=== PATIENT | female | born 1955 | race Caucasian/White ===

== ENCOUNTER → 2022-12-12 11:46 | Outpatient (REF) | payer MEDICARE, OTHER, SELFPAY ==
--- NOTE | 2022-12-12 13:18 | ECG_ITS ---
Test Reason : I10 Blood Pressure : / mmHG Vent. Rate : 084 BPM Atrial Rate : 084 BPM P-R Int : 148 ms QRS Dur : 076 ms QT Int : 382 ms P-R-T Axes : 071 065 064 degrees QTc Int : 451 ms Normal sinus rhythm Possible Left atrial enlargement Borderline ECG When compared with ECG of 04-DEC-2002 17:33, No significant change was found Referred By: Mainor Raymond Electronically Signed By:JOSEPH MAYFIELD
[2022-12-12 14:20] LABS: Basophils Absolute Auto 0.1 X10*3/uL (0.0-0.2); Basophils Percent Auto 0.7 % (0-2); Eosinophils Absolute Auto 0.1 X10*3/uL (0.0-0.4); Eosinophils Percent Auto 0.5 % (0-4); Hemoglobin 13.9 g/dl (12.0-16.0); Imm Gran Abs Auto 0.04 X10*3/uL (0.00-0.03); Imm Gran Pct Auto 0.4 % (0.0-0.4); Lymphocytes Absolute Auto 2.6 X10*3/uL (1.2-4.9); Lymphocytes Percent Auto 24.1 % (20-40); MANUAL DIFF FLAG NO; Mean Corpuscular HGB Conc 33.9 g/dl (31.0-35.0); Mean Corpuscular Hemoglobin 29.4 pg (27.0-33.0); Mean Corpuscular Volume 86.7 fL (80.0-98.0); Mean Platelet Volume 9.2 fL (9.4-12.3); Monocytes Absolute Auto 0.8 X10*3/uL (0.1-1.2); Monocytes Percent Auto 7.6 % (2-11); Neutrophils Absolute Auto 7.1 x10*3/uL (2.0-8.3); Neutrophils Percent Auto 66.7 % (45-73); Platelet Count 396 X10*3/uL (160-400); Red Blood Count 4.73 X10*6/uL (4.20-5.50); Red Cell Distribution Width 12.9 % (11.0-16.0); White Blood Count 10.7 X10*3/uL (4.8-10.8)
[2022-12-12 14:33] LABS: Estimated Average Glucose 103 mg/dL; Hemoglobin A1C 127.8484 umol/L; Hemoglobin A1c % 5.2 %
[2022-12-12 15:06] LABS: Alanine Aminotransferase 13 U/L (0-31); Albumin Level 4.6 g/dL (3.5-5.0); Alkaline Phosphatase 83 U/L (39-117); Anion Gap 16 (12-20); Aspartate Amino Transferase 13 U/L (5-31); Bilirubin Total 0.4 mg/dL (0.0-1.0); Blood Urea Nitrogen 12 mg/dL (9-16); Calcium 9.6 mg/dL (8.4-10.2); Carbon Dioxide 22 mmol/L (22-29); Chloride 100 mmol/L (96-108); Estimated Glomerular Filt Rate > 60; Glucose Random 94 mg/dL (60-115); Potassium 4.9 mmol/L (3.3-5.1); Sodium 133 mmol/L (135-145); Total Protein 6.7 g/dL (6.5-8.0)
[2022-12-12 15:31] LABS: Vitamin B12 1258 pg/mL (200-900)
[2022-12-12 16:04] LABS: Folate 17.4 ng/mL (> or = 4.0)
== END ==
LOC: HO.CARD 11:46
PROVIDERS: PCP Family Medicine; Visit Provider Psychiatry & Neurology Psychiatry
DX: F31.4 Bipolar disorder, current episode depressed, severe, without psychotic features (principal); I10 Essential (primary) hypertension; R73.9 Hyperglycemia, unspecified; Z79.899 Other long term (current) drug therapy
CPT/HCPCS: 36415; 80053; 82607; 82746; 83036; 84443; 85025; 90792; 93005

== ENCOUNTER 2023-11-12 12:50 | Outpatient (AMB) | payer MEDICARE, OTHER, SELFPAY ==
--- NOTE | 2023-11-12 15:31 | A.OFFPSYCH_ITS ---
Intake Vital Signs 11/12/23 15:32 Height 5 ft 8 in Weight 135 lb Intake Visit Reasons: Depression Landing Scaler Required: No Allergies No Known Allergies Allergy (Verified 11/12/23 15:33) Medication List - Last Reconciled 11/12/23 by Vira Ruiz APRN albuterol sulfate 90 mcg/actuation 2 puffs inhalation Q4-6H PRN alprazolam 0.5 - 1 mg PO BID PRN celecoxib 200 mg PO DAILY estradiol 0.01%(0.1mg/gram) 0.5 grams vaginal 2XW famotidine 20 mg PO BEDTIME lamotrigine orally; Patient takes 150 mg in the morning 100 mg at bedtime lisinopril 10 mg PO DAILY lurasidone (Latuda) 40 mg PO DAILY mirtazapine 30 mg PO BEDTIME temazepam 30 mg PO BEDTIME trazodone 100 - 150 mg PO BEDTIME PRN trimethoprim 100 mg PO BEDTIME HPI- Psychiatric Chief Complaint: Depression Intake Note: pt reports improved mood; increased energy; feeling less overwhelmed; feeling less anxious about taks and activities; stress new her daughter's father in law with terminal cancer (lives with family) - very hard on whole family. Pt denies SI or HI; sleeping only 4-5 hours ; no xin; no impulsivity; no pressured speech. HPI Narrative: Pt has had last two years very depressed and difficult to function; just coming out of deprssion x 1 month. long history of mental illness with severe depressions in past . Hx of tx of ECT in past; doing well with mild -moderate depression annually that last for less time than in past and periods of mild hypomania but no xin in years Past Psychiatric History: With the patient has a long history of bipolar disorder has been increasingly depressed over the past 3 years had an episode of significant depression and November of 2002 treated with ECT Subjective Subjective Subjective Medication Compliance: Yes Side effects from medications: No Review of Systems Medical Review of Systems: unchanged Review of Systems Review of Systems Yes all other systems are reviewed and are negative Mental Status Exam Mental Status Exam Patient Appearance: Appropriate Patient Orientation: Person, Place, Time and Situation Level of Consciousness: Appropriate Patient Behavior: Appropriate and Talkative (no pressure) Mood Description: Calm and Appropriate Affect Description: Appropriate Patient Cognition Impaired: No Ability to Follow Directions: Good Speech Pattern: Clear Memory Description: Intact Hallucinations: None Delusions: Not Present Thought Process: Intact and Goal Oriented Thought Content: positive for Intact and positive for Goal Oriented Judgement: Good Judgement and Insight: insight and judgment good Telehealth Telehealth Location of provider rendering services: practice address Location of patient: address on file Patient Identification confirmed using: Name, : Yes Telehealth method: video Patient verbally consented to treatment: Yes Patient verbally consented to billing insurance company: Yes Patient informed of any privacy concerns related to visit: Yes Minutes spent on Phone/Video with Pt.: 20 Assessment and Plan Assessment & Plan (1) Bipolar disorder in partial remission: Status: Acute Code(s): F31.70 - Bipolar disorder, currently in remission, most recent episode unspecified (2) Anxiety, generalized: Status: Acute Code(s): F41.1 - Generalized anxiety disorder Plan 68 yo patient has a long history of bipolar disorder has been increasingly depressed over the past 2 years just beginning to feel the depression lift x 30 days Medications: Changed From alprazolam 0.5 - 1 mg PO BID PRN To alprazolam 0.5 - 1 mg (0.5 - 1 x 1 mg) PO BID 3 months PRN 180 tabs 1RF anxiety MDD 2mg Counseling and coordination of Care Pt. Self Management counseling: Light exposure and Sleep hygiene Medication management counseling: Effectiveness, Side effects, Dosing range and Adherence Diagnosis and Prognosis Counseling: Accuracy of diagnosis, Prognosis over time, Impact of diagnosis on life functions and Impact of family relationship Details: I spent 45 minutes reviewing the record, seeing the patient and documenting in the medical record. Counseling provided to the patient/caregiver as outlined below. Addressed patient/caregiver concerns regarding current medication regime including effective adherence. Addressed patient/caregiver concerns regarding diagnosis and prognosis including accuracy of diagnosis, prognosis over time, impact of diagnosis. Addressed patient/caregiver concerns regarding impact of recent stressors. [facility] Medical History (Updated 11/12/23 @ 15:41 by Vira Ruiz APRN) Hypertension Social History: The patient lives alone her daughter and grandchild live nearby in [place]. Patient is retired she is to work in [employer] patient's father committed suicide when the patient was age 1 patient was in foster care at age 1 due to father's and mother was hospitalized for depression [place] sister from the eating disorder Substance History: Past history of alcohol abuse Trauma History: soap chipper trauma Coding Level of Care Code Est Pt Level 4 (98261) Diagnoses Bipolar disorder in partial remission F31.70 Anxiety, generalized F41.1 Time Spent (min) 45
== END 2023-11-12 12:53 | disposition home or self-care (01) ==
LOC: HO.HOP 12:51
PROVIDERS: PCP Family Medicine; Visit Provider Clinical Nurse Specialist Psychiatric/Mental Health
DX: F31.70 Bipolar disorder, currently in remission, most recent episode unspecified (principal); F41.1 Generalized anxiety disorder
CPT/HCPCS: 99443

== ENCOUNTER → 2023-11-12 12:50 | Outpatient (BNVA) | payer MEDICARE, OTHER, SELFPAY | PROVIDERS: PCP Family Medicine; Visit Provider Clinical Nurse Specialist Psychiatric/Mental Health ==

== ENCOUNTER 2023-12-13 18:46 | Outpatient (AMB) | payer MEDICARE, OTHER, SELFPAY ==
--- NOTE | 2023-12-13 11:31 | A.OFFPSYCH_ITS ---
Intake Intake Visit Reasons: Depression Allergies No Known Allergies Allergy (Verified 11/12/23 15:33) Medication List - Last Reconciled 12/13/23 by Vira Ruiz APRN albuterol sulfate 90 mcg/actuation 2 puffs inhalation Q4-6H PRN alprazolam 0.5 - 1 mg (0.5 - 1 x 1 mg) PO BID PRN 3 months MDD 2mg celecoxib 200 mg PO DAILY estradiol 0.01%(0.1mg/gram) 0.5 grams vaginal 2XW famotidine 20 mg PO BEDTIME lamotrigine orally; Patient takes 150 mg in the morning 100 mg at bedtime lisinopril 10 mg PO DAILY lurasidone (Latuda) 40 mg PO DAILY mirtazapine 30 mg PO BEDTIME temazepam 30 mg PO BEDTIME trazodone 100 - 150 mg PO BEDTIME PRN trimethoprim 100 mg PO BEDTIME HPI- Psychiatric Chief Complaint: Depression HPI Narrative: pt reports depression improved; she reports more energy and motivation; she reports more able to intiate and complete tasks. she is exercising several times a week; she is helping her daughter and granddaughter. she expresses hope for future; she is sleeping better with increased trazodone; she reports continued worry but less actual anxiety and no panic attacks for past 2 weeks. No SI no HI ; no xin; no impulsivity; no psychosis. no medical changes. Past Psychiatric History: patient has a long history of bipolar disorder has been increasingly depressed over the past 3 years had an episode of significant depression and November of 2002 treated with ECT Subjective Subjective Subjective Medication Compliance: Yes Side effects from medications: No Review of Systems Medical Review of Systems: unchanged Mental Status Exam Mental Status Exam Patient Appearance: Well Grooomed and Appropriate Patient Orientation: Person, Place, Time and Situation Level of Consciousness: Awake and Alert Patient Behavior: Appropriate, Cooperative and Good Eye Contact Mood Description: Calm Affect Description: Calm Patient Cognition Impaired: No Ability to Follow Directions: Good Speech Pattern: Clear Memory Description: Intact Hallucinations: None Delusions: Not Present Thought Process: Intact and Goal Oriented Thought Content: positive for Intact and positive for Goal Oriented Judgement: Fair Assessment and Plan Assessment & Plan (1) Anxiety, generalized: Status: Acute Code(s): F41.1 - Generalized anxiety disorder (2) Bipolar disorder, in partial remission, most recent episode depressed: Status: Acute Code(s): F31.75 - Bipolar disorder, in partial remission, most recent episode depressed Plan continue medications as prescribed continue to exercise for mood follow up in 1 month Counseling and coordination of Care Pt. Self Management counseling: Exercise, Maintenance-social rhythm, Behavior activation and General coping skills Medication management counseling: Effectiveness, Side effects, Dosing range, Duration, Drug interaction and Adherence Diagnosis and Prognosis Counseling: Accuracy of diagnosis, Prognosis over time, Impact of diagnosis on life functions, Impact of family relationship and Adequacy of current interventions Details: I spent 30 minutes reviewing the record, seeing the patient and documenting in the medical record. Counseling provided to the patient/caregiver as outlined below. Addressed patient/caregiver concerns regarding current medication regime including effective adherence. Addressed patient/caregiver concerns regarding diagnosis and prognosis including accuracy of diagnosis, prognosis over time, impact of diagnosis. Addressed patient/caregiver concerns regarding impact of recent stressors. [facility] Medical History (Updated 12/13/23 @ 11:51 by Vira Ruiz APRN) Bipolar disorder in partial remission Hypertension Social History: The patient lives alone; her daughter and grandchild live nearby in [place]. Patient is retired she used to work in [employer] patient's father committed suicide when the patient was age 1 patient. 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
== END 2023-12-13 18:46 | disposition home or self-care (01) ==
LOC: HO.HOP 18:46
PROVIDERS: PCP Family Medicine; Visit Provider Clinical Nurse Specialist Psychiatric/Mental Health
DX: F41.1 Generalized anxiety disorder (principal); F31.75 Bipolar disorder, in partial remission, most recent episode depressed
CPT/HCPCS: 99214

== ENCOUNTER → 2023-12-13 18:46 | Outpatient (BNVA) | payer MEDICARE, OTHER, SELFPAY | PROVIDERS: PCP Family Medicine; Visit Provider Clinical Nurse Specialist Psychiatric/Mental Health | DX: F31.75 Bipolar disorder, in partial remission, most recent episode depressed (principal); F41.1 Generalized anxiety disorder | CPT/HCPCS: 99212 ==

== ENCOUNTER 2024-01-13 11:32 | Outpatient (AMB) | payer MEDICARE, OTHER, SELFPAY ==
--- NOTE | 2024-01-13 09:48 | A.OFFPSYCH_ITS ---
Intake Vital Signs 01/13/24 09:50 Height 5 ft 8 in Weight 135 lb Intake Visit Reasons: anxiety, depression, Bipolar disorder Fitness/Wellness Director Required: No Allergies No Known Allergies Allergy (Verified 11/12/23 15:33) Medication List - Last Reconciled 01/13/24 by Vira Ruiz APRN albuterol sulfate 90 mcg/actuation 2 puffs inhalation Q4-6H PRN alprazolam 0.5 - 1 mg (0.5 - 1 x 1 mg) PO BID PRN 3 months MDD 2mg celecoxib 200 mg PO DAILY estradiol 0.01%(0.1mg/gram) 0.5 grams vaginal 2XW famotidine 20 mg PO BEDTIME lamotrigine 100 mg orally tae 1.5 (150mg ) tablets in morning and 1 (100mg ) tablet at bedtime; lisinopril 10 mg PO DAILY lisinopril 20 mg PO DAILY lurasidone (Latuda) 40 mg PO DAILY mirtazapine 30 mg PO BEDTIME temazepam 30 mg PO BEDTIME trazodone 100 - 150 mg PO BEDTIME PRN trimethoprim 100 mg PO BEDTIME HPI- Psychiatric Chief Complaint: anxiety, depression, Bipolar disorder HPI Narrative: Patient seen today via synchronous video telehealth appointment for depression and anxiety. Patient is compliant with medications. No side effects. Mood is improved. No depression. No xin. Good energy. More active socially and with previously enjoyable activities such as gardening. Spending time with family members. No SI no HI Past Psychiatric History: patient has a long history of bipolar disorder has been increasingly depressed over the past 3 years had an episode of significant depression and November of 2002 treated with ECT Subjective Subjective Subjective Medication Compliance: Yes Side effects from medications: No Review of Systems Medical Review of Systems: unchanged Mental Status Exam Mental Status Exam Patient Appearance: Well Grooomed and Appropriate Patient Orientation: Person, Place, Time and Situation Level of Consciousness: Awake and Alert Patient Behavior: Appropriate Mood Description: Calm and Happy Affect Description: Calm and Happy Patient Cognition Impaired: No Ability to Follow Directions: Good Speech Pattern: Clear Memory Description: Intact Hallucinations: None Delusions: Not Present Thought Process: Intact and Goal Oriented Thought Content: positive for Intact and positive for Goal Oriented Judgement: Fair Telehealth Telehealth Telehealth Platform: Other (please specify) ([email or web address]) Location of provider rendering services: practice address Location of patient: address on file Patient Identification confirmed using: Name, : Yes Telehealth method: video Patient verbally consented to treatment: Yes Patient verbally consented to billing insurance company: Yes Patient informed of any privacy concerns related to visit: Yes Minutes spent on Phone/Video with Pt.: 25 Assessment and Plan Assessment & Plan (1) Bipolar disorder, in partial remission, most recent episode depressed: Status: Acute Code(s): F31.75 - Bipolar disorder, in partial remission, most recent episode depressed (2) Anxiety, generalized: Status: Acute Code(s): F41.1 - Generalized anxiety disorder Plan Continue medications as is. No changes today. Return in 1 month Counseling and coordination of Care Pt. Self Management counseling: Exercise, Maintenance-social rhythm, Mod caffeine/ETOH intake and General coping skills Medication management counseling: Effectiveness, Side effects, Dosing range, Duration, Drug interaction and Adherence Diagnosis and Prognosis Counseling: Accuracy of diagnosis, Prognosis over time, Impact of diagnosis on life functions, Impact of family relationship and Adequacy of current interventions Details: I spent [30] minutes reviewing the record, seeing the patient and documenting in the medical record. Counseling provided to the patient/caregiver as outlined below. Addressed patient/caregiver concerns regarding current medication regime including effective adherence. Addressed patient/caregiver concerns regarding diagnosis and prognosis including accuracy of diagnosis, prognosis over time, impact of diagnosis. Addressed patient/caregiver concerns regarding impact of recent stressors. [facility] Medical History (Updated 12/13/23 @ 11:51 by Vira Ruiz APRN) Bipolar disorder in partial remission Hypertension Social History: The patient lives alone; her daughter and grandchild live nearby in [place]. Patient is retired she used to work in [employer] patient's father committed suicide when the patient was age 1 patient. 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
== END 2024-01-13 11:33 | disposition home or self-care (01) ==
LOC: HO.HOP 11:32
PROVIDERS: PCP Family Medicine; Visit Provider Clinical Nurse Specialist Psychiatric/Mental Health
DX: F31.75 Bipolar disorder, in partial remission, most recent episode depressed (principal); F41.1 Generalized anxiety disorder
CPT/HCPCS: 99213

== ENCOUNTER → 2024-01-13 11:32 | Outpatient (BNVA) | payer MEDICARE, OTHER, SELFPAY | PROVIDERS: PCP Family Medicine; Visit Provider Clinical Nurse Specialist Psychiatric/Mental Health ==

== ENCOUNTER 2024-02-13 10:34 | Outpatient (AMB) | payer MEDICARE, OTHER, SELFPAY ==
--- NOTE | 2024-02-13 09:32 | MHC.OFFVISPS ---
Intake Intake Visit Reasons: anxiety, depression Intake Note: 68 yo woman with long history of bipolar disorder and anxiety in need of follow up for depression and anxiety Appeals Reviewer Veteran Required: No Allergies No Known Allergies Allergy (Verified 11/12/23 15:33) Medication List - Last Reconciled 02/13/24 by Vira Ruiz APRN albuterol sulfate 90 mcg/actuation 2 puffs inhalation Q4-6H PRN alprazolam 0.5 - 1 mg (0.5 - 1 x 1 mg) PO BID PRN 3 months MDD 2mg celecoxib 200 mg PO DAILY estradiol 0.01%(0.1mg/gram) 0.5 grams vaginal 2XW famotidine 20 mg PO BEDTIME lamotrigine 100 mg orally tae 1.5 (150mg ) tablets in morning and 1 (100mg ) tablet at bedtime; lisinopril 10 mg PO DAILY lisinopril 20 mg PO DAILY lurasidone (Latuda) 40 mg PO DAILY mirtazapine 30 mg PO BEDTIME temazepam 30 mg PO BEDTIME trazodone 100 - 150 mg PO BEDTIME PRN trimethoprim 100 mg PO BEDTIME HPI- Psychiatric Chief Complaint: anxiety, depression HPI Narrative: pt reports increased depression x 2 weeks; reports depression 5/10. She thinks it may be from an increase in worry and anxiety since signing a contract to have her windows replaced. She didn't initially realize how much work she would salomon to do to move thoings away from windows. she doesd have help from family which is helping her feel less overwhelmed. No SI or HI Past Psychiatric History: patient has a long history of bipolar disorder has been increasingly depressed over the past 3 years had an episode of significant depression and November of 2002 treated with ECT Subjective Subjective Subjective Medication Compliance: Yes Side effects from medications: No Review of Systems Medical Review of Systems: unchanged Mental Status Exam Mental Status Exam Patient Appearance: Well Grooomed and Appropriate Patient Orientation: Person, Place and Situation Level of Consciousness: Awake and Appropriate Patient Behavior: Appropriate and Good Eye Contact Mood Description: Anxious Affect Description: Constricted and Anxious Patient Cognition Impaired: No Ability to Follow Directions: Good Speech Pattern: Clear and Appropriate Memory Description: Intact Hallucinations: None Delusions: Not Present Thought Process: Intact and Goal Oriented Thought Content: positive for Intact and positive for Goal Oriented Judgement: Good Telehealth Telehealth Telehealth Platform: Other (please specify) ([email or web address]) Location of provider rendering services: practice address Location of patient: address on file Patient Identification confirmed using: Name, : Yes Telehealth method: video Patient verbally consented to treatment: Yes Patient verbally consented to billing insurance company: Yes Patient informed of any privacy concerns related to visit: Yes Minutes spent on Phone/Video with Pt.: 30 Assessment and Plan Assessment & Plan (1) Bipolar disorder, in partial remission, most recent episode depressed: Status: Acute Code(s): F31.75 - Bipolar disorder, in partial remission, most recent episode depressed (2) Anxiety, generalized: Status: Acute Code(s): F41.1 - Generalized anxiety disorder Plan continue lamicta, latuda, remeron, trazodone, xanax and temazepam as prescribed retrun in one month Medications: New temazepam 30 mg PO BEDTIME 90 caps 1RF Counseling and coordination of Care Pt. Self Management counseling: Exercise, Light exposure, Maintenance-social rhythm and Sleep hygiene Medication management counseling: Effectiveness, Side effects, Dosing range, Duration, Drug interaction and Adherence Diagnosis and Prognosis Counseling: Accuracy of diagnosis, Prognosis over time, Impact of diagnosis on life functions, Impact of family relationship, Problematic behaviors secondary to diagnosis and Adequacy of current interventions Details: I spent [40] minutes reviewing the record, seeing the patient and documenting in the medical record. Counseling provided to the patient/caregiver as outlined below. Addressed patient/caregiver concerns regarding current medication regime including effective adherence. Addressed patient/caregiver concerns regarding diagnosis and prognosis including accuracy of diagnosis, prognosis over time, impact of diagnosis. Addressed patient/caregiver concerns regarding impact of recent stressors. [facility] Medical History (Updated 12/13/23 @ 11:51 by Vira Ruiz APRN) Bipolar disorder in partial remission Hypertension Social History: The patient lives alone; her daughter and grandchild live nearby in [place]. Patient is retired she used to work in [employer] patient's father committed suicide when the patient was age 1 patient. 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
== END 2024-02-13 13:01 | disposition home or self-care (01) ==
LOC: HO.HOP 10:35
PROVIDERS: PCP Family Medicine; Visit Provider Clinical Nurse Specialist Psychiatric/Mental Health
DX: F31.75 Bipolar disorder, in partial remission, most recent episode depressed (principal); F41.1 Generalized anxiety disorder
CPT/HCPCS: 99214

== ENCOUNTER → 2024-02-13 10:34 | Outpatient (BNVA) | payer MEDICARE, OTHER, SELFPAY | PROVIDERS: PCP Family Medicine; Visit Provider Clinical Nurse Specialist Psychiatric/Mental Health | DX: F31.75 Bipolar disorder, in partial remission, most recent episode depressed (principal); F41.1 Generalized anxiety disorder ==

== ENCOUNTER 2024-03-12 11:10 | Outpatient (AMB) | payer MEDICARE, OTHER, SELFPAY ==
--- NOTE | 2024-03-12 09:35 | MHC.OFFVISPS ---
Intake Intake Visit Reasons: depression, Anxiety Systems Accountant Required: No Allergies No Known Allergies Allergy (Verified 11/12/23 15:33) Medication List - Last Reconciled 03/12/24 by Vira Ruiz APRN albuterol sulfate 90 mcg/actuation 2 puffs inhalation Q4-6H PRN alprazolam 0.5 - 1 mg (0.5 - 1 x 1 mg) PO BID PRN 3 months MDD 2mg celecoxib 200 mg PO DAILY estradiol 0.01%(0.1mg/gram) 0.5 grams vaginal 2XW famotidine 20 mg PO BEDTIME lamotrigine 100 mg orally tae 1.5 (150mg ) tablets in morning and 1 (100mg ) tablet at bedtime; lisinopril 10 mg PO DAILY lisinopril 20 mg PO DAILY lurasidone (Latuda) 40 mg PO DAILY mirtazapine 30 mg PO BEDTIME temazepam 30 mg PO BEDTIME trazodone 100 - 150 mg PO BEDTIME PRN trimethoprim 100 mg PO BEDTIME HPI- Psychiatric Chief Complaint: depression, Anxiety HPI Narrative: pt reports depression is mild to moderate; she is still active; the anxiety is more troubling; she is coping well but its a struggle; she has many things she is worried about; her friend Calin's health is not good and she is trying to help him navigate the medical appointments; 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 she denies medical changes; no SI or Hi; feels the medications are helping; Past Psychiatric History: patient has a long history of bipolar disorder has been increasingly depressed over the past 3 years had an episode of significant depression and November of 2002 treated with ECT Subjective Subjective Subjective Medication Compliance: Yes Side effects from medications: No Review of Systems Medical Review of Systems: unchanged Mental Status Exam Mental Status Exam Patient Appearance: Well Grooomed and Appropriate Patient Orientation: Person, Place, Time and Situation Level of Consciousness: Awake Patient Behavior: Appropriate Mood Description: Anxious Affect Description: Anxious Patient Cognition Impaired: No Ability to Follow Directions: Good Speech Pattern: Clear and Coherent Memory Description: Intact Hallucinations: None Delusions: Not Present Thought Process: Intact and Goal Oriented Thought Content: positive for Intact and positive for Goal Oriented Judgement: Good Telehealth Telehealth Telehealth Platform: Other (please specify) ([email or web address]) Location of provider rendering services: practice address Location of patient: address on file Patient Identification confirmed using: Name, : Yes Telehealth method: video Patient verbally consented to treatment: Yes Patient verbally consented to billing insurance company: Yes Patient informed of any privacy concerns related to visit: Yes Minutes spent on Phone/Video with Pt.: 30 Assessment and Plan Assessment & Plan (1) Anxiety, generalized: Status: Acute Code(s): F41.1 - Generalized anxiety disorder (2) Bipolar disorder, in partial remission, most recent episode depressed: Status: Acute Code(s): F31.75 - Bipolar disorder, in partial remission, most recent episode depressed Plan coninute medications - no new scripts needed today Counseling and coordination of Care Pt. Self Management counseling: Maintenance-social rhythm, Mod caffeine/ETOH intake, Sleep hygiene, Behavior activation and General coping skills Medication management counseling: Effectiveness, Side effects, Dosing range, Drug interaction and Adherence Diagnosis and Prognosis Counseling: Accuracy of diagnosis, Prognosis over time, Impact of diagnosis on life functions and Adequacy of current interventions Details: I spent 38 minutes reviewing the record, seeing the patient and documenting in the medical record. Counseling provided to the patient/caregiver as outlined below. Addressed patient/caregiver concerns regarding current medication regime including effective adherence. Addressed patient/caregiver concerns regarding diagnosis and prognosis including accuracy of diagnosis, prognosis over time, impact of diagnosis. Addressed patient/caregiver concerns regarding impact of recent stressors. [facility] Medical History (Updated 12/13/23 @ 11:51 by Vira Ruiz APRN) Bipolar disorder in partial remission Hypertension Social History: The patient lives alone; her daughter and grandchild live nearby in [place]. Patient is retired she used to work in [employer] patient's father committed suicide when the patient was age 1 patient. 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
== END 2024-03-12 11:11 | disposition home or self-care (01) ==
LOC: HO.HOP 11:10
PROVIDERS: PCP Family Medicine; Visit Provider Clinical Nurse Specialist Psychiatric/Mental Health
DX: F41.1 Generalized anxiety disorder (principal); F31.75 Bipolar disorder, in partial remission, most recent episode depressed
CPT/HCPCS: 90833; 99213

== ENCOUNTER → 2024-03-12 11:10 | Outpatient (BNVA) | payer MEDICARE, OTHER, SELFPAY | PROVIDERS: PCP Family Medicine; Visit Provider Clinical Nurse Specialist Psychiatric/Mental Health | DX: F31.75 Bipolar disorder, in partial remission, most recent episode depressed (principal); F41.1 Generalized anxiety disorder ==

== ENCOUNTER 2024-04-03 15:03 | Outpatient (AMB) | payer MEDICARE, OTHER, SELFPAY ==
--- NOTE | 2024-04-03 09:33 | MHC.OFFVISPS ---
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 Allergies No Known Allergies Allergy (Verified 11/12/23 15:33) Medication List - Last Reconciled 04/03/24 by Vira Ruiz APRN albuterol sulfate 90 mcg/actuation 2 puffs inhalation Q4-6H PRN alprazolam 0.5 - 1 mg (0.5 - 1 x 1 mg) PO BID PRN 3 months MDD 2mg celecoxib 200 mg PO DAILY estradiol 0.01%(0.1mg/gram) 0.5 grams vaginal 2XW famotidine 20 mg PO BEDTIME lamotrigine 100 mg orally tae 1.5 (150mg ) tablets in morning and 1 (100mg ) tablet at bedtime; lisinopril 10 mg PO DAILY lisinopril 20 mg PO DAILY lurasidone (Latuda) 40 mg PO DAILY mirtazapine 30 mg PO BEDTIME temazepam 30 mg PO BEDTIME trazodone 100 - 150 mg PO BEDTIME PRN trimethoprim 100 mg PO BEDTIME HPI- Psychiatric Chief Complaint: depression HPI Narrative: pt reports stable mood. mild depression; continues with anxiety and worry. She is not sleeping well. she had work done on her home and it was very stressful, caused her increased anxiety but she feels she is coping;her very good friend is experiencing dementia and she is helping him get to doctor appts and take care of daily household tasks. she feels low energy and an urge to lay on the couch most of the day and read. she denies SI or HI. she hasa pysicl coming up in so we discussed her getting lab work done then. Past Psychiatric History: patient has a long history of bipolar disorder has been increasingly depressed over the past 3 years had an episode of significant depression and November of 2002 treated with ECT Subjective Subjective Subjective Medication Compliance: Yes Side effects from medications: No Review of Systems Medical Review of Systems: unchanged Mental Status Exam Mental Status Exam Patient Orientation: Person, Place, Time and Situation Level of Consciousness: Awake and Appropriate Patient Behavior: Appropriate and Cooperative Mood Description: Anxious Patient Cognition Impaired: No Ability to Follow Directions: Good Speech Pattern: Clear Memory Description: Intact Hallucinations: None Delusions: Not Present Thought Process: Intact Thought Content: positive for Intact Judgement: Good Telehealth Telehealth Telehealth Platform: Telephone (video not working due to worldwide antivirus patch) Location of provider rendering services: practice address Location of patient: address on file Patient Identification confirmed using: Name, : Yes Telehealth method: voice only Patient verbally consented to treatment: Yes Patient verbally consented to billing insurance company: Yes Patient informed of any privacy concerns related to visit: Yes Minutes spent on Phone/Video with Pt.: 29 Assessment and Plan Assessment & Plan (1) Bipolar disorder, in partial remission, most recent episode depressed: Status: Acute Code(s): F31.75 - Bipolar disorder, in partial remission, most recent episode depressed (2) Anxiety, generalized: Status: Acute Code(s): F41.1 - Generalized anxiety disorder Plan continue current medications ' lamictal remron temazepam xanax trazodone latuda obtain lab work - labs printed and sent via us mail no refills needed today Orders: Orders Complete Blood Count Auto Diff Today Z79.899 - Other buttermaker continuous churn (current) drug therapy Comprehensive [place]. Panel Fast Today Z79.899 - Other residential (current) drug therapy TSH reflex Free T4 Today F31.75 - Bipolar disorder, in partial remission, most recent episode depressed, Z79.899 - Other buttermaker continuous churn (current) drug therapy Lipid Panel Today F31.75 - Bipolar disorder, in partial remission, most recent episode depressed, Z79.899 - Other residential (current) drug therapy Lamotrigine Lamictal Today F31.75 - Bipolar disorder, in partial remission, most recent episode depressed, F41.1 - Generalized anxiety disorder, Z79.899 - Other buttermaker continuous churn (current) drug therapy Vitamin D 25-OH (D2 and D3) Today F31.75 - Bipolar disorder, in partial remission, most recent episode depressed, Z79.899 - Other buttermaker continuous churn (current) drug therapy Hemoglobin A1c Today F31.75 - Bipolar disorder, in partial remission, most recent episode depressed, Z79.899 - Other residential (current) drug therapy Counseling and coordination of Care Details: I spent [] minutes reviewing the record, seeing the patient and documenting in the medical record. Counseling provided to the patient/caregiver as outlined below. Addressed patient/caregiver concerns regarding current medication regime including effective adherence. Addressed patient/caregiver concerns regarding diagnosis and prognosis including accuracy of diagnosis, prognosis over time, impact of diagnosis. Addressed patient/caregiver concerns regarding impact of recent stressors. [facility] Medical History (Updated 04/03/24 @ 10:09 by Vira Ruiz APRN) Bipolar disorder in partial remission Hypertension Social History: The patient lives alone; her daughter and grandchild live nearby in [place]. 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
== END 2024-04-03 15:04 | disposition home or self-care (01) ==
LOC: HO.HOP 15:03
PROVIDERS: PCP Family Medicine; Visit Provider Clinical Nurse Specialist Psychiatric/Mental Health
DX: F31.75 Bipolar disorder, in partial remission, most recent episode depressed (principal); F41.1 Generalized anxiety disorder
CPT/HCPCS: 99443

== ENCOUNTER → 2024-04-03 15:03 | Outpatient (BNVA) | payer MEDICARE, OTHER, SELFPAY | PROVIDERS: PCP Family Medicine; Visit Provider Clinical Nurse Specialist Psychiatric/Mental Health | DX: F31.75 Bipolar disorder, in partial remission, most recent episode depressed (principal); F41.1 Generalized anxiety disorder; Z79.899 Other long term (current) drug therapy ==

== ENCOUNTER 2024-05-05 09:41 | Outpatient (AMB) | payer MEDICARE, OTHER, SELFPAY ==
--- NOTE | 2024-05-05 09:11 | A.OFFPSYCH_ITS ---
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 Allergies No Known Allergies Allergy (Verified 11/12/23 15:33) Medication List - Last Reconciled 05/05/24 by Vira Ruiz APRN albuterol sulfate 90 mcg/actuation 2 puffs inhalation Q4-6H PRN alprazolam 0.5 - 1 mg (0.5 - 1 x 1 mg) PO BID PRN 3 months MDD 2mg celecoxib 200 mg PO DAILY estradiol 0.01%(0.1mg/gram) 0.5 grams vaginal 2XW famotidine 20 mg PO BEDTIME lamotrigine 100 mg orally tae 1.5 (150mg ) tablets in morning and 1 (100mg ) tablet at bedtime; lisinopril 10 mg PO DAILY lisinopril 20 mg PO DAILY lurasidone (Latuda) 40 mg PO DAILY mirtazapine 30 mg PO BEDTIME temazepam 30 mg PO BEDTIME trazodone 100 - 150 mg PO BEDTIME PRN trimethoprim 100 mg PO BEDTIME HPI- Psychiatric Chief Complaint: Depression HPI Narrative: Pt struggling with depression. she has less social contact due to daughter and family being on vacation and then daughter has covid so she will not see again for another week. she is making other appts and helping a friend, she also had get together with another friend. she is compliant with meds. Past Psychiatric History: patient has a long history of bipolar disorder has been increasingly depressed over the past 3 years had an episode of significant depression and November of 2002 treated with ECT Subjective Subjective Subjective Medication Compliance: Yes Side effects from medications: No Review of Systems Medical Review of Systems: unchanged Mental Status Exam Mental Status Exam Patient Appearance: Well Grooomed and Appropriate Patient Orientation: Person, Place, Time and Situation Level of Consciousness: Awake Patient Behavior: Appropriate Mood Description: Anxious Affect Description: Anxious Patient Cognition Impaired: No Ability to Follow Directions: Good Speech Pattern: Clear Memory Description: Intact Hallucinations: None Delusions: Not Present Thought Process: Intact Thought Content: positive for Intact Assessment and Plan Assessment & Plan (1) Bipolar disorder, in partial remission, most recent episode depressed: Status: Acute Code(s): F31.75 - Bipolar disorder, in partial remission, most recent episode depressed (2) Anxiety, generalized: Status: Acute Code(s): F41.1 - Generalized anxiety disorder Plan continue medication as is continue to make appts and plans to get together with others. return in one month Medications: New lurasidone (Latuda) must administer with food (at least 350 calories) 40 mg PO DAILY 90 tabs 1RF mirtazapine 30 mg PO BEDTIME 90 tabs 1RF Counseling and coordination of Care Medication management counseling: Effectiveness, Side effects, Dosing range, Duration, Drug interaction and Adherence Diagnosis and Prognosis Counseling: Accuracy of diagnosis, Prognosis over time, Impact of diagnosis on life functions, Impact of family relationship, Problematic behaviors secondary to diagnosis and Adequacy of current interventions Details: I spent 30 minutes reviewing the record, seeing the patient and documenting in the medical record. Counseling provided to the patient/caregiver as outlined below. Addressed patient/caregiver concerns regarding current medication regime including effective adherence. Addressed patient/caregiver concerns regarding diagnosis and prognosis including accuracy of diagnosis, prognosis over time, impact of diagnosis. Addressed patient/caregiver concerns regarding impact of recent stressors. [facility] Medical History (Updated 04/03/24 @ 10:09 by Vira Ruiz APRN) Bipolar disorder in partial remission Hypertension Social History: The patient lives alone; her daughter and grandchild live nearby in [place]. Patient is retired she used to work in [employer] patient's father committed suicide when the patient was age 1 patient. 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
== END 2024-05-05 09:42 | disposition home or self-care (01) ==
LOC: HO.HOP 09:41
PROVIDERS: PCP Family Medicine; Visit Provider Clinical Nurse Specialist Psychiatric/Mental Health
DX: F31.75 Bipolar disorder, in partial remission, most recent episode depressed (principal); F41.1 Generalized anxiety disorder
CPT/HCPCS: 99214

== ENCOUNTER → 2024-05-05 09:41 | Outpatient (BNVA) | payer MEDICARE, OTHER, SELFPAY | PROVIDERS: PCP Family Medicine; Visit Provider Clinical Nurse Specialist Psychiatric/Mental Health | DX: F31.75 Bipolar disorder, in partial remission, most recent episode depressed (principal); F41.1 Generalized anxiety disorder | CPT/HCPCS: 99212 ==

== ENCOUNTER 2024-06-05 09:41 | Outpatient (AMB) | payer MEDICARE, OTHER, SELFPAY ==
--- NOTE | 2024-06-05 09:39 | MHC.OFFVISPS ---
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: No Allergies No Known Allergies Allergy (Verified 11/12/23 15:33) Medication List - Last Reconciled 06/05/24 by Vira Ruiz APRN albuterol sulfate 90 mcg/actuation 2 puffs inhalation Q4-6H PRN alprazolam 0.5 - 1 mg (0.5 - 1 x 1 mg) PO BID PRN 3 months MDD 2mg celecoxib 200 mg PO DAILY estradiol 0.01%(0.1mg/gram) 0.5 grams vaginal 2XW famotidine 20 mg PO BEDTIME lamotrigine 100 mg orally tae 1.5 (150mg ) tablets in morning and 1 (100mg ) tablet at bedtime; lisinopril 10 mg PO DAILY lisinopril 20 mg PO DAILY lurasidone (Latuda) 40 mg PO DAILY mirtazapine 30 mg PO BEDTIME temazepam 30 mg PO BEDTIME trazodone 100 - 150 mg PO BEDTIME PRN trimethoprim 100 mg PO BEDTIME HPI- Psychiatric Chief Complaint: Depression HPI Narrative: mood stable; continue with some mild depression; worries every day. no panic attacks recently; worry and rumination keep her awake at night. temazepam helps when coping skills dont work. no SI or Hi. engaging in activities; helping others- family and good friend Calin. taking care of home and yard. taking care of ADLs. reading for pleasure. Past Psychiatric History: patient has a long history of bipolar disorder has been increasingly depressed over the past 3 years had an episode of significant depression and November of 2002 treated with ECT Subjective Subjective Subjective Medication Compliance: Yes Side effects from medications: No Review of Systems Medical Review of Systems: unchanged Mental Status Exam Mental Status Exam Patient Appearance: Well Grooomed and Appropriate Patient Orientation: Person, Place, Time and Situation Level of Consciousness: Awake and Appropriate Patient Behavior: Appropriate Mood Description: Blunted and Flat Affect Description: Flat Patient Cognition Impaired: No Ability to Follow Directions: Good Speech Pattern: Clear Memory Description: Intact Hallucinations: None Delusions: Not Present Thought Process: Intact, Rumination and Goal Oriented Thought Content: positive for Intact and positive for Goal Oriented Judgement: Good Telehealth Telehealth Telehealth Platform: Other (please specify) ([email or web address]) Location of provider rendering services: practice address Location of patient: address on file Patient Identification confirmed using: Name, : Yes Telehealth method: video Patient verbally consented to treatment: Yes Patient verbally consented to billing insurance company: Yes Minutes spent on Phone/Video with Pt.: 29 Assessment and Plan Assessment & Plan (1) Bipolar disorder, in partial remission, most recent episode depressed: Status: Acute Code(s): F31.75 - Bipolar disorder, in partial remission, most recent episode depressed (2) Anxiety, generalized: Status: Acute Code(s): F41.1 - Generalized anxiety disorder Plan continue lamictal, latuda mirtazepine and trazodone as well as temazepam prn and xanax prn Medications: Refilled alprazolam 0.5 - 1 mg (0.5 - 1 x 1 mg) PO BID PRN 180 tabs 1RF anxiety 3 months MDD 2mg Counseling and coordination of Care Pt. Self Management counseling: Exercise, Maintenance-social rhythm, Mod caffeine/ETOH intake, Nutrition education and improvement, Sleep hygiene, Behavior activation, General coping skills and Problem solving Medication management counseling: Effectiveness, Side effects, Dosing range, Duration, Drug interaction and Adherence Diagnosis and Prognosis Counseling: Accuracy of diagnosis, Prognosis over time, Impact of diagnosis on life functions, Impact of family relationship, Problematic behaviors secondary to diagnosis and Adequacy of current interventions Details: I spent 36 minutes reviewing the record, seeing the patient and documenting in the medical record. Counseling provided to the patient/caregiver as outlined below. Addressed patient/caregiver concerns regarding current medication regime including effective adherence. Addressed patient/caregiver concerns regarding diagnosis and prognosis including accuracy of diagnosis, prognosis over time, impact of diagnosis. Addressed patient/caregiver concerns regarding impact of recent stressors. [facility] Medical History (Updated 04/03/24 @ 10:09 by Vira Ruiz APRN) Bipolar disorder in partial remission Hypertension Social History: The patient lives alone; her daughter and grandchild live nearby in [place]. Patient is retired she used to work in [employer] patient's father committed suicide when the patient was age 1 patient. 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
== END 2024-06-05 10:51 | disposition home or self-care (01) ==
LOC: HO.HOP 09:41
PROVIDERS: PCP Family Medicine; Visit Provider Clinical Nurse Specialist Psychiatric/Mental Health
DX: F31.75 Bipolar disorder, in partial remission, most recent episode depressed (principal); F41.1 Generalized anxiety disorder
CPT/HCPCS: 99214

== ENCOUNTER → 2024-06-05 09:41 | Outpatient (BNVA) | payer MEDICARE, OTHER, SELFPAY | PROVIDERS: PCP Family Medicine; Visit Provider Clinical Nurse Specialist Psychiatric/Mental Health | DX: F31.75 Bipolar disorder, in partial remission, most recent episode depressed (principal); F41.1 Generalized anxiety disorder | CPT/HCPCS: 99212 ==

== ENCOUNTER 2024-07-03 12:47 | Outpatient (AMB) | payer MEDICARE, OTHER, SELFPAY ==
--- NOTE | 2024-07-03 09:51 | A.OFFPSYCH_ITS ---
Intake Intake Visit Reasons: Depression Office Manager Executive Assistant Required: No Allergies No Known Allergies Allergy (Verified 11/12/23 15:33) Medication List - Last Reconciled 07/03/24 by Vira Ruiz APRN albuterol sulfate 90 mcg/actuation 2 puffs inhalation Q4-6H PRN alprazolam 0.5 - 1 mg (0.5 - 1 x 1 mg) PO BID PRN 3 months MDD 2mg celecoxib 200 mg PO DAILY estradiol 0.01%(0.1mg/gram) 0.5 grams vaginal 2XW famotidine 20 mg PO BEDTIME lamotrigine 100 mg orally tae 1.5 (150mg ) tablets in morning and 1 (100mg ) tablet at bedtime; lisinopril 10 mg PO DAILY lisinopril 20 mg PO DAILY lurasidone (Latuda) 40 mg PO DAILY mirtazapine 30 mg PO BEDTIME temazepam 30 mg PO BEDTIME trazodone 100 - 150 mg PO BEDTIME PRN trimethoprim 100 mg PO BEDTIME HPI- Psychiatric Chief Complaint: Depression HPI Narrative: Patient reports that she has had a variable mood this month she had a 2 weeks where she felt more positive and optimistic. She continues to have anxiety. Recently she found that her well was leaking and she has had to have some emergency excavation and well work done which has made her feel more overwhelmed more depressed and triggered passive suicidal ideation. She has no plan and no intent. She does state that the well work will be done today and she will likely feel better once it is done. Her sleep remains the same no changes she is eating well she is exercising more. And she continues to be active with family and friends. Past Psychiatric History: patient has a long history of bipolar disorder has been increasingly depressed over the past 3 years had an episode of significant depression and November of 2002 treated with ECT Subjective Subjective Subjective Medication Compliance: Yes Side effects from medications: No Review of Systems Medical Review of Systems: unchanged Mental Status Exam Mental Status Exam Patient Appearance: Well Grooomed and Appropriate Patient Orientation: Person, Place, Time and Situation Level of Consciousness: Awake and Appropriate Patient Behavior: Appropriate and Talkative Mood Description: Anxious Affect Description: Constricted and Anxious Patient Cognition Impaired: No Ability to Follow Directions: Good Speech Pattern: Clear and Coherent Memory Description: Intact Hallucinations: None Delusions: Not Present Thought Process: Intact and Goal Oriented Thought Content: positive for Intact and positive for Goal Oriented Judgement: Good Telehealth Telehealth Telehealth Platform: Other (please specify) ([email or web address]) Location of provider rendering services: practice address Location of patient: address on file Patient Identification confirmed using: Name, : Yes Telehealth method: video Patient verbally consented to treatment: Yes Patient verbally consented to billing insurance company: Yes Patient informed of any privacy concerns related to visit: Yes Minutes spent on Phone/Video with Pt.: 25 Assessment and Plan Assessment & Plan (1) Bipolar disorder, in partial remission, most recent episode depressed: Status: Acute Code(s): F31.75 - Bipolar disorder, in partial remission, most recent episode depressed (2) Anxiety, generalized: Status: Acute Code(s): F41.1 - Generalized anxiety disorder Plan continue medication with no changes continue brief supportive therapy and CBT Counseling and coordination of Care Pt. Self Management counseling: Maintenance-social rhythm, Mod caffeine/ETOH intake, Sleep hygiene, Behavior activation, Cognitive restructuring, General coping skills and Problem solving Medication management counseling: Effectiveness, Side effects, Dosing range, Duration, Drug interaction and Adherence Diagnosis and Prognosis Counseling: Accuracy of diagnosis, Prognosis over time, Impact of diagnosis on life functions, Impact of family relationship and Adequacy of current interventions Details: I spent 35 minutes reviewing the record, seeing the patient and documenting in the medical record. Counseling provided to the patient/caregiver as outlined below. Addressed patient/caregiver concerns regarding current medication regime including effective adherence. Addressed patient/caregiver concerns regarding diagnosis and prognosis including accuracy of diagnosis, prognosis over time, impact of diagnosis. Addressed patient/caregiver concerns regarding impact of recent stressors. [facility] Medical History (Updated 04/03/24 @ 10:09 by Vira Ruiz APRN) Bipolar disorder in partial remission Hypertension Social History: The patient lives alone; her daughter and grandchild live nearby in [place]. 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
== END 2024-07-03 12:48 | disposition home or self-care (01) ==
LOC: HO.HOP 12:47
PROVIDERS: PCP Family Medicine; Visit Provider Clinical Nurse Specialist Psychiatric/Mental Health
DX: F31.75 Bipolar disorder, in partial remission, most recent episode depressed (principal); F41.1 Generalized anxiety disorder
CPT/HCPCS: 90833; 99213

== ENCOUNTER → 2024-07-03 12:47 | Outpatient (BNVA) | payer MEDICARE, OTHER, SELFPAY | PROVIDERS: PCP Family Medicine; Visit Provider Clinical Nurse Specialist Psychiatric/Mental Health | DX: F31.75 Bipolar disorder, in partial remission, most recent episode depressed (principal); F41.1 Generalized anxiety disorder ==

== ENCOUNTER 2024-07-31 09:37 | Outpatient (AMB) | payer MEDICARE, OTHER, SELFPAY ==
--- NOTE | 2024-07-31 09:06 | A.OFFPSYCH_ITS ---
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 Required: No Allergies No Known Allergies Allergy (Verified 11/12/23 15:33) Medication List - Last Reconciled 07/31/24 by Vira Ruiz APRN albuterol sulfate 90 mcg/actuation 2 puffs inhalation Q4-6H PRN alprazolam 0.5 - 1 mg (0.5 - 1 x 1 mg) PO BID PRN 3 months MDD 2mg celecoxib 200 mg PO DAILY estradiol 0.01%(0.1mg/gram) 0.5 grams vaginal 2XW famotidine 20 mg PO BEDTIME lamotrigine 100 mg orally take 1.5 (150mg ) tablets in morning and 1 (100mg ) tablet at bedtime; lisinopril 10 mg PO DAILY lisinopril 20 mg PO DAILY lurasidone (Latuda) 40 mg PO DAILY mirtazapine 30 mg PO BEDTIME temazepam 30 mg PO BEDTIME trazodone 100 - 150 mg PO BEDTIME PRN trimethoprim 100 mg PO BEDTIME HPI- Psychiatric Chief Complaint: Depression HPI Narrative: pt reports depression improved. anxiety has increased and pt having more trouble doing things such as driving, going to library, meeting friends for coffee due to anxiety; pt is still doing these things but its taking more effort. sleep is disrupted- waking up 2-3 times; since time change pt waking at 3am. exercising regularly; getting out for walks, spending time with family; eating well. Past Psychiatric History: patient has a long history of bipolar disorder has been increasingly depressed over the past 3 years had an episode of significant depression and November of 2002 treated with ECT Subjective Subjective Subjective Medication Compliance: Yes Side effects from medications: No Review of Systems Medical Review of Systems: unchanged Mental Status Exam Mental Status Exam Patient Appearance: Well Grooomed and Appropriate Patient Orientation: Person, Place, Time and Situation Level of Consciousness: Awake and Appropriate Patient Behavior: Appropriate and Cooperative Mood Description: Anxious Affect Description: Anxious Patient Cognition Impaired: No Ability to Follow Directions: Good Speech Pattern: Clear and Appropriate Memory Description: Intact Hallucinations: None Delusions: Not Present Thought Process: Intact and Goal Oriented Thought Content: positive for Intact and positive for Goal Oriented Judgement: Good Telehealth Telehealth Telehealth Platform: Other (please specify) ([email or web address]) Location of provider rendering services: practice address Location of patient: address on file Patient Identification confirmed using: Name, : Yes Telehealth method: video Patient verbally consented to treatment: Yes Patient verbally consented to billing insurance company: Yes Patient informed of any privacy concerns related to visit: Yes Minutes spent on Phone/Video with Pt.: 45 Assessment and Plan Assessment & Plan (1) Bipolar disorder, in partial remission, most recent episode depressed: Status: Acute Code(s): F31.75 - Bipolar disorder, in partial remission, most recent episode depressed (2) Anxiety, generalized: Status: Acute Code(s): F41.1 - Generalized anxiety disorder Plan continue medications as is- no changes encourage exercise and social interactions Medications: Changed From trazodone 100 - 150 mg PO BEDTIME PRN insomnia To trazodone 100 - 150 mg (2 - 3 x 50 mg) PO BEDTIME PRN 270 tabs 2RF insomnia 90 days Counseling and coordination of Care Pt. Self Management counseling: Exercise, Maintenance-social rhythm, Mod caffeine/ETOH intake, Sleep hygiene, Behavior activation and General coping skills Medication management counseling: Effectiveness, Side effects, Dosing range, Duration, Drug interaction and Adherence Diagnosis and Prognosis Counseling: Accuracy of diagnosis, Prognosis over time, Impact of diagnosis on life functions, Impact of family relationship, Problematic behaviors secondary to diagnosis and Adequacy of current interventions Details: I spent 40 minutes reviewing the record, seeing the patient and documenting in the medical record. Counseling provided to the patient/caregiver as outlined below. Addressed patient/caregiver concerns regarding current medication regime including effective adherence. Addressed patient/caregiver concerns regarding diagnosis and prognosis including accuracy of diagnosis, prognosis over time, impact of diagnosis. Addressed patient/caregiver concerns regarding impact of recent stressors. [facility] Medical History (Updated 04/03/24 @ 10:09 by Vira Ruiz APRN) Bipolar disorder in partial remission Hypertension Social History: The patient lives alone; her daughter and grandchild live nearby in [place]. 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
== END 2024-07-31 09:42 | disposition home or self-care (01) ==
LOC: HO.HOP 09:37
PROVIDERS: PCP Family Medicine; Visit Provider Clinical Nurse Specialist Psychiatric/Mental Health
DX: F31.75 Bipolar disorder, in partial remission, most recent episode depressed (principal); F41.1 Generalized anxiety disorder
CPT/HCPCS: 90833; 99214

== ENCOUNTER → 2024-07-31 09:37 | Outpatient (BNVA) | payer MEDICARE, OTHER, SELFPAY | PROVIDERS: PCP Family Medicine; Visit Provider Clinical Nurse Specialist Psychiatric/Mental Health | DX: F31.75 Bipolar disorder, in partial remission, most recent episode depressed (principal); F41.1 Generalized anxiety disorder; Z71.89 Other specified counseling | CPT/HCPCS: 99212 ==

== ENCOUNTER 2024-09-18 11:30 | Outpatient (AMB) | payer MEDICARE, OTHER, SELFPAY ==
--- NOTE | 2024-09-18 09:18 | A.OFFPSYCH_ITS ---
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: No Allergies No Known Allergies Allergy (Verified 11/12/23 15:33) Medication List - Last Reconciled 09/18/24 by Vira Ruiz APRN albuterol sulfate 90 mcg/actuation 2 puffs inhalation Q4-6H PRN alprazolam 0.5 - 1 mg (0.5 - 1 x 1 mg) PO BID PRN 3 months MDD 2mg amlodipine 10 mg PO DAILY celecoxib 200 mg PO DAILY estradiol 0.01%(0.1mg/gram) 0.5 grams vaginal 2XW famotidine 20 mg PO BEDTIME lamotrigine 100 mg orally take 1.5 (150mg ) tablets in morning and 1 (100mg ) tablet at bedtime; lurasidone (Latuda) 40 mg PO DAILY mirtazapine 30 mg PO BEDTIME temazepam 30 mg PO BEDTIME trazodone 100 - 150 mg (2 - 3 x 50 mg) PO BEDTIME PRN 90 days trimethoprim 100 mg PO BEDTIME HPI- Psychiatric Chief Complaint: Depression HPI Narrative: Pt reports improved depression symptoms; she smiles at times in session; she does reports more anxiety; reports fair sleep with one night recently of waking several times through the night despite taking the remeron, trazodone and temazepam. Pt denies sedation or dizziness she does feel a little foggy in am the am with the increase in trazodone; continues to have family stress with daughter's father in law on hospice care now; Pt 91 yr old friend wirh Parkinson''s is getting progressively less independent. Pt is still reading and exercising although reports a bit less exercise since cold weather. she is comp liant with medications. denies side effects; no SI or HI. Past Psychiatric History: patient has a long history of bipolar disorder; had an episode of significant depression and November of 2002 treated with ECT Subjective Subjective Subjective Medication Compliance: Yes Side effects from medications: No Review of Systems Medical Review of Systems: unchanged Mental Status Exam Mental Status Exam Patient Appearance: Well Grooomed and Appropriate Patient Orientation: Person, Place, Time and Situation Level of Consciousness: Awake, Appropriate and Alert Patient Behavior: Appropriate, Talkative, Cooperative and Good Eye Contact Mood Description: Constricted (smiles and jokes appropriately at times in session) and Anxious Affect Description: Constricted (smiles and jokes appropriately at times in session) and Anxious Patient Cognition Impaired: No Ability to Follow Directions: Good Speech Pattern: Clear and Appropriate Memory Description: Intact Hallucinations: None Delusions: Not Present Thought Process: Intact and Goal Oriented Thought Content: positive for Intact and positive for Goal Oriented Judgement: Good Telehealth Telehealth Telehealth Platform: Other (please specify) [email or web address]) Location of provider rendering services: practice address Location of patient: address on file Patient Identification confirmed using: Name, : Yes Telehealth method: video Patient verbally consented to treatment: Yes Patient verbally consented to billing insurance company: Yes Patient informed of any privacy concerns related to visit: Yes Minutes spent on Phone/Video with Pt.: 30 Assessment and Plan Assessment & Plan (1) Bipolar disorder, in partial remission, most recent episode depressed: Status: Acute Code(s): F31.75 - Bipolar disorder, in partial remission, most recent episode depressed (2) Anxiety, generalized: Status: Acute Code(s): F41.1 - Generalized anxiety disorder Plan continue medications per below stay hydrated follow up in one month Medications: Refilled lurasidone (Latuda) must administer with food (at least 350 calories) 40 mg PO DAILY 90 tabs 1RF mirtazapine 30 mg PO BEDTIME 90 tabs 1RF temazepam 30 mg PO BEDTIME 90 caps 1RF alprazolam 0.5 - 1 mg (0.5 - 1 x 1 mg) PO BID 3 months PRN 180 tabs 1RF anxiety MDD 2mg lamotrigine 100 mg orally take 1.5 (150mg ) tablets in morning and 1 (100mg ) tablet at bedtime; 225 tabs 1RF trazodone 100 - 150 mg (2 - 3 x 50 mg) PO BEDTIME 90 days PRN 270 tabs 2RF insomnia Counseling and coordination of Care Pt. Self Management counseling: Exercise, Maintenance-social rhythm, Mod caffeine/ETOH intake and Sleep hygiene Medication management counseling: Effectiveness, Side effects, Dosing range, Duration, Drug interaction and Adherence Diagnosis and Prognosis Counseling: Accuracy of diagnosis, Prognosis over time, Impact of diagnosis on life functions, Impact of family relationship, Problematic behaviors secondary to diagnosis and Adequacy of current interventions Details: I spent 40 minutes reviewing the record, seeing the patient and documenting in the medical record. Counseling provided to the patient/caregiver as outlined below. Addressed patient/caregiver concerns regarding current medication regime including effective adherence. Addressed patient/caregiver concerns regarding diagnosis and prognosis including accuracy of diagnosis, prognosis over time, impact of diagnosis. Addressed patient/caregiver concerns regarding impact of recent stressors. [facility] Medical History (Updated 09/18/24 @ 09:53 by Vira Ruiz APRN) Bipolar disorder with severe depression Bipolar disorder in partial remission Hypertension Social History: The patient lives alone; her daughter and grandchild live nearby in [place]. 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
== END 2024-09-18 11:31 | disposition home or self-care (01) ==
LOC: HO.HOP 11:30
PROVIDERS: PCP Family Medicine; Visit Provider Clinical Nurse Specialist Psychiatric/Mental Health
DX: F31.75 Bipolar disorder, in partial remission, most recent episode depressed (principal); F41.1 Generalized anxiety disorder
CPT/HCPCS: 90833; 99214

== ENCOUNTER 2024-10-22 09:47 | Outpatient (AMB) | payer MEDICARE, OTHER, SELFPAY ==
--- NOTE | 2024-10-22 09:21 | MHC.OFFVISPS ---
Intake Intake Visit Reasons: Depression Heel Former Required: No Allergies No Known Allergies Allergy (Verified 11/12/23 15:33) Medication List - Last Reconciled 10/22/24 by Vira Ruiz APRN albuterol sulfate 90 mcg/actuation 2 puffs inhalation Q4-6H PRN alprazolam 0.5 - 1 mg (0.5 - 1 x 1 mg) PO BID PRN 3 months MDD 2mg amlodipine 10 mg PO DAILY celecoxib 200 mg PO DAILY estradiol 0.01%(0.1mg/gram) 0.5 grams vaginal 2XW famotidine 20 mg PO BEDTIME lamotrigine 100 mg orally take 1.5 (150mg ) tablets in morning and 1 (100mg ) tablet at bedtime; lurasidone (Latuda) 40 mg PO DAILY mirtazapine 30 mg PO BEDTIME temazepam take 1-2 caps at bdtime as needed orally bedtime PRN; trazodone 100 - 150 mg (2 - 3 x 50 mg) PO BEDTIME PRN 90 days trimethoprim 100 mg PO BEDTIME HPI- Psychiatric Chief Complaint: Depression HPI Narrative: pt mood improved; less depressed; still with anxiety; pts son in law father recently ; stressful and difficult for the family; pt coping welloverall; sleep continue to be difficult even with medications; no SI or HI. anxious every day but coping; no panic attacks Past Psychiatric History: patient has a long history of bipolar disorder; had an episode of significant depression and November of 2002 treated with ECT Subjective Subjective Subjective Medication Compliance: Yes Side effects from medications: No Review of Systems Medical Review of Systems: unchanged Mental Status Exam Mental Status Exam Patient Appearance: Well Grooomed Patient Orientation: Person, Place, Time and Situation Level of Consciousness: Awake and Appropriate Patient Behavior: Appropriate and Cooperative Mood Description: Withdrawn and Anxious Affect Description: Withdrawn and Anxious Patient Cognition Impaired: No Ability to Follow Directions: Good Speech Pattern: Clear and Coherent Memory Description: Intact Hallucinations: None Delusions: Not Present Thought Process: Intact and Goal Oriented Thought Content: positive for Intact and positive for Goal Oriented Judgement: Good Telehealth Telehealth Telehealth Platform: Other (please specify) ([email or web address]) Location of provider rendering services: practice address Location of patient: address on file Patient Identification confirmed using: Name, : Yes Telehealth method: video Patient verbally consented to treatment: Yes Patient verbally consented to billing insurance company: Yes Patient informed of any privacy concerns related to visit: Yes Minutes spent on Phone/Video with Pt.: 20 Assessment and Plan Assessment & Plan (1) Bipolar disorder, in partial remission, most recent episode depressed: Status: Acute Code(s): F31.75 - Bipolar disorder, in partial remission, most recent episode depressed (2) Anxiety, generalized: Status: Acute Code(s): F41.1 - Generalized anxiety disorder Plan continue medications Medications: New temazepam take 1-2 caps at bdtime as needed orally bedtime PRN; 60 caps 2RF sleep Refilled lurasidone (Latuda) must administer with food (at least 350 calories) 40 mg PO DAILY 90 tabs 1RF Discontinued temazepam Discontinued Reason: No Longer Medically Relevant 30 mg PO BEDTIME PRN 30 caps 3RF sleep Counseling and coordination of Care Pt. Self Management counseling: Exercise, Maintenance-social rhythm, Mod caffeine/ETOH intake, Nutrition education and improvement, Sleep hygiene and Behavior activation Medication management counseling: Effectiveness, Side effects, Dosing range, Duration, Drug interaction and Adherence Diagnosis and Prognosis Counseling: Prognosis over time, Impact of diagnosis on life functions, Impact of family relationship, Problematic behaviors secondary to diagnosis and Adequacy of current interventions Details: I spent 35 minutes reviewing the record, seeing the patient and documenting in the medical record. Counseling provided to the patient/caregiver as outlined below. Addressed patient/caregiver concerns regarding current medication regime including effective adherence. Addressed patient/caregiver concerns regarding diagnosis and prognosis including accuracy of diagnosis, prognosis over time, impact of diagnosis. Addressed patient/caregiver concerns regarding impact of recent stressors. [facility] Medical History (Updated 09/18/24 @ 09:53 by Vira Ruiz APRN) Bipolar disorder with severe depression Bipolar disorder in partial remission Hypertension Social History: The patient lives alone; her daughter and grandchild live nearby in [place]. 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
== END 2024-10-22 09:47 | disposition home or self-care (01) ==
LOC: HO.HOP 09:47
PROVIDERS: PCP Family Medicine; Visit Provider Clinical Nurse Specialist Psychiatric/Mental Health
DX: F31.75 Bipolar disorder, in partial remission, most recent episode depressed (principal); F41.1 Generalized anxiety disorder
CPT/HCPCS: 99213

== ENCOUNTER → 2024-10-22 09:47 | Outpatient (BNVA) | payer MEDICARE, OTHER, SELFPAY | PROVIDERS: PCP Family Medicine; Visit Provider Clinical Nurse Specialist Psychiatric/Mental Health | DX: F31.75 Bipolar disorder, in partial remission, most recent episode depressed (principal); F41.1 Generalized anxiety disorder ==

== ENCOUNTER 2024-11-19 10:51 | Outpatient (AMB) | payer MEDICARE, OTHER, SELFPAY ==
--- NOTE | 2024-11-19 09:18 | A.OFFPSYCH_ITS ---
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 Allergies No Known Allergies Allergy (Verified 11/12/23 15:33) Medication List - Last Reconciled 11/19/24 by Vira Ruiz APRN albuterol sulfate 90 mcg/actuation 2 puffs inhalation Q4-6H PRN alprazolam 0.5 - 1 mg (0.5 - 1 x 1 mg) PO BID PRN 3 months MDD 2mg amlodipine 10 mg PO DAILY celecoxib 200 mg PO DAILY estradiol 0.01%(0.1mg/gram) 0.5 grams vaginal 2XW famotidine 20 mg PO BEDTIME lamotrigine 100 mg orally take 1.5 (150mg ) tablets in morning and 1 (100mg ) tablet at bedtime; lurasidone (Latuda) 40 mg PO DAILY mirtazapine 30 mg PO BEDTIME trazodone 100 - 150 mg (2 - 3 x 50 mg) PO BEDTIME PRN 90 days trimethoprim 100 mg PO BEDTIME HPI- Psychiatric Chief Complaint: Depression HPI Narrative: pt reports more depression since last visist; she had a serious tooth infection, was on antibiotics and awaiting treatment plan from endontist. She is still in pain and uncomfortable. Past Psychiatric History: patient has a long history of bipolar disorder; had an episode of significant depression and November of 2002 treated with ECT Subjective Subjective Subjective Medication Compliance: Yes Side effects from medications: No Review of Systems Medical Review of Systems: unchanged Mental Status Exam Mental Status Exam Patient Appearance: Well Grooomed and Appropriate Patient Orientation: Person, Place, Time and Situation Level of Consciousness: Awake, Appropriate and Alert Patient Behavior: Appropriate and Cooperative Mood Description: Depressed and Anxious Affect Description: Depressed and Anxious Patient Cognition Impaired: No Ability to Follow Directions: Good Speech Pattern: Clear Memory Description: Intact Hallucinations: None Delusions: Not Present Thought Process: Intact and Goal Oriented Thought Content: positive for Intact and positive for Goal Oriented Judgement: Good Telehealth Telehealth Telehealth Platform: Telephone Location of provider rendering services: practice address Location of patient: address on file Patient Identification confirmed using: Name, : Yes Telehealth method: voice only Patient verbally consented to treatment: Yes Patient verbally consented to billing insurance company: Yes Patient informed of any privacy concerns related to visit: Yes Minutes spent on Phone/Video with Pt.: 15 Assessment and Plan Assessment & Plan (1) Bipolar disorder, in partial remission, most recent episode depressed: Status: Acute Code(s): F31.75 - Bipolar disorder, in partial remission, most recent episode depressed (2) Anxiety, generalized: Status: Acute Code(s): F41.1 - Generalized anxiety disorder Medications: New temazepam 30 mg (2 x 15 mg) PO BEDTIME PRN 60 caps 2RF sleep Refilled mirtazapine 30 mg PO BEDTIME 90 tabs 1RF Counseling and coordination of Care Pt. Self Management counseling: Maintenance-social rhythm, Mod caffeine/ETOH intake and Sleep hygiene Medication management counseling: Effectiveness, Side effects, Dosing range, Duration, Drug interaction and Adherence Diagnosis and Prognosis Counseling: Accuracy of diagnosis, Prognosis over time, Impact of diagnosis on life functions, Impact of family relationship, Problematic behaviors secondary to diagnosis and Adequacy of current interventions Details: I spent 25 minutes reviewing the record, seeing the patient and documenting in the medical record. Counseling provided to the patient/caregiver as outlined below. Addressed patient/caregiver concerns regarding current medication regime including effective adherence. Addressed patient/caregiver concerns regarding diagnosis and prognosis including accuracy of diagnosis, prognosis over time, impact of diagnosis. Addressed patient/caregiver concerns regarding impact of recent stressors. [facility] Medical History (Updated 09/18/24 @ 09:53 by Vira Ruiz APRN) Bipolar disorder with severe depression Bipolar disorder in partial remission Hypertension Social History: The patient lives alone; her daughter and grandchild live nearby in [place]. Patient is retired she used to work in [employer] patient's father committed suicide when the patient was age 1 patient. she and sister in foster care at age 1 due to father's and mother was hospitalized for depression; her sister from the eating disorder Substance History: Past history of alcohol abuse Trauma History: child care trauma Coding Level of Care Code Est Pt Level 3 (32704) Diagnoses Bipolar disorder, in partial remission, most recent episode depressed F31.75 Anxiety, generalized F41.1
== END 2024-11-19 10:52 | disposition home or self-care (01) ==
LOC: HO.HOP 10:51
PROVIDERS: PCP Family Medicine; Visit Provider Clinical Nurse Specialist Psychiatric/Mental Health
DX: F31.75 Bipolar disorder, in partial remission, most recent episode depressed (principal); F41.1 Generalized anxiety disorder
CPT/HCPCS: 99213

== ENCOUNTER → 2024-11-19 10:51 | Outpatient (BNVA) | payer MEDICARE, OTHER, SELFPAY | PROVIDERS: PCP Family Medicine; Visit Provider Clinical Nurse Specialist Psychiatric/Mental Health | DX: F31.75 Bipolar disorder, in partial remission, most recent episode depressed (principal); F41.1 Generalized anxiety disorder | CPT/HCPCS: 99212 ==

== ENCOUNTER 2024-12-17 09:58 | Outpatient (AMB) | payer MEDICARE, OTHER, SELFPAY ==
--- NOTE | 2024-12-17 09:29 | A.OFFPSYCH_ITS ---
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 Allergies No Known Allergies Allergy (Verified 11/12/23 15:33) Medication List - Last Reconciled 12/17/24 by Vira Ruiz APRN albuterol sulfate 90 mcg/actuation 2 puffs inhalation Q4-6H PRN alprazolam 0.5 - 1 mg (0.5 - 1 x 1 mg) PO BID PRN 3 months MDD 2mg amlodipine 10 mg PO DAILY celecoxib 200 mg PO DAILY estradiol 0.01%(0.1mg/gram) 0.5 grams vaginal 2XW famotidine 20 mg PO BEDTIME lamotrigine 100 mg orally take 1.5 (150mg ) tablets in morning and 1 (100mg ) tablet at bedtime; lurasidone (Latuda) 40 mg PO DAILY mirtazapine 30 mg PO BEDTIME temazepam 30 mg (2 x 15 mg) PO BEDTIME PRN trazodone 100 - 150 mg (2 - 3 x 50 mg) PO BEDTIME PRN 90 days trimethoprim 100 mg PO BEDTIME HPI- Psychiatric Chief Complaint: Depression HPI Narrative: pt depressed, low energy, low motivation, low interest in activities. increase anxiety and worry. sleep fair; appetite low. continues to exercise but less often; continues to sepnd time with family. no SI or HI . Past Psychiatric History: patient has a long history of bipolar disorder; had an episode of significant depression and November of 2002 treated with ECT Subjective Subjective Subjective Medication Compliance: Yes Side effects from medications: No Review of Systems Medical Review of Systems: unchanged Mental Status Exam Mental Status Exam Patient Appearance: Well Grooomed and Appropriate Patient Orientation: Person, Place, Time and Situation Level of Consciousness: Awake and Appropriate Patient Behavior: Appropriate and Cooperative Mood Description: Withdrawn and Depressed Affect Description: Withdrawn, Depressed and Flat Patient Cognition Impaired: No Ability to Follow Directions: Good Speech Pattern: Clear, Soft-Spoken and Long Pauses Memory Description: Intact Hallucinations: None Delusions: Not Present Thought Process: Intact and Goal Oriented Thought Content: positive for Intact and positive for Goal Oriented Judgement: Good Telehealth Telehealth Telehealth Platform: Other (please specify) (doxy.mi) Location of provider rendering services: practice address Location of patient: address on file Patient Identification confirmed using: Name, : Yes Telehealth method: video Patient verbally consented to treatment: Yes Patient verbally consented to billing insurance company: Yes Patient informed of any privacy concerns related to visit: Yes Minutes spent on Phone/Video with Pt.: 30 Assessment and Plan Assessment & Plan (1) Bipolar disorder, in partial remission, most recent episode depressed: Status: Acute Code(s): F31.75 - Bipolar disorder, in partial remission, most recent episode depressed (2) Anxiety, generalized: Status: Acute Code(s): F41.1 - Generalized anxiety disorder (3) Low vitamin D level: Status: Acute Code(s): R79.89 - Other specified abnormal findings of blood chemistry (4) Fatigue: Status: Acute Code(s): R53.83 - Other fatigue Medications: Refilled alprazolam 0.5 - 1 mg (0.5 - 1 x 1 mg) PO BID PRN 180 tabs 1RF anxiety 3 months MDD 2mg Orders: Orders Complete Blood Count Auto Diff Today F31.75 - Bipolar disorder, in partial remission, most recent episode depressed, Z79.899 - Other halfway (current) drug therapy TSH reflex Free T4 Today F31.75 - Bipolar disorder, in partial remission, most recent episode depressed, Z79.899 - Other halfway (current) drug therapy Comprehensive [place]. Panel Fast Today F31.75 - Bipolar disorder, in partial remission, most recent episode depressed, Z79.899 - Other halfway (current) drug therapy Lamotrigine Lamictal Today F31.75 - Bipolar disorder, in partial remission, most recent episode depressed, Z79.899 - Other halfway (current) drug therapy Vitamin D 25-OH Total Today R79.89 - Other specified abnormal findings of blood chemistry Lipid Panel Today R79.89 - Other specified abnormal findings of blood chemistry Vitamin B12 and Folate Today R53.83 - Other fatigue Counseling and coordination of Care Pt. Self Management counseling: Exercise, Maintenance-social rhythm, Mod caffeine/ETOH intake, Nutrition education and improvement, Sleep hygiene, Behavior activation, General coping skills and Problem solving Medication management counseling: Effectiveness, Side effects, Dosing range, Duration, Drug interaction and Adherence Diagnosis and Prognosis Counseling: Accuracy of diagnosis, Prognosis over time, Impact of diagnosis on life functions, Impact of family relationship, Problematic behaviors secondary to diagnosis and Adequacy of current interve ntions Details: I spent 35 minutes reviewing the record, seeing the patient and documenting in the medical record. Counseling provided to the patient/caregiver as outlined below. Addressed patient/caregiver concerns regarding current medication regime including effective adherence. Addressed patient/caregiver concerns regarding diagnosis and prognosis including accuracy of diagnosis, prognosis over time, impact of diagnosis. Addressed patient/caregiver concerns regarding impact of recent stressors. [facility] Medical History (Updated 12/17/24 @ 10:41 by Vira Ruiz APRN) Bipolar disorder with severe depression Bipolar disorder in partial remission Hypertension Social History: The patient lives alone; her daughter and grandchild live nearby in [place]. Patient is retired she used to work in [employer] patient's father committed suicide when the patient was age 1 patient. 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
== END 2024-12-17 09:58 | disposition home or self-care (01) ==
LOC: HO.HOP 09:58
PROVIDERS: PCP Family Medicine; Visit Provider Clinical Nurse Specialist Psychiatric/Mental Health
DX: F31.75 Bipolar disorder, in partial remission, most recent episode depressed (principal); F41.1 Generalized anxiety disorder; R79.89 Other specified abnormal findings of blood chemistry; R53.83 Other fatigue
CPT/HCPCS: 99214

== ENCOUNTER 2025-01-19 10:01 | Outpatient (AMB) | payer MEDICARE, OTHER, SELFPAY ==
--- NOTE | 2025-01-19 09:10 | MHC.OFFVISPS ---
Intake Intake Visit Reasons: Depression [facility] Required: No Allergies No Known Allergies Allergy (Verified 11/12/23 15:33) Medication List - Last Reconciled 01/19/25 by Vira Ruiz APRN albuterol sulfate 90 mcg/actuation 2 puffs inhalation Q4-6H PRN alprazolam 0.5 - 1 mg (0.5 - 1 x 1 mg) PO BID PRN 3 months MDD 2mg amlodipine 10 mg PO DAILY celecoxib 200 mg PO DAILY estradiol 0.01%(0.1mg/gram) 0.5 grams vaginal 2XW famotidine 20 mg PO BEDTIME lamotrigine 100 mg orally take 1.5 (150mg ) tablets in morning and 1 (100mg ) tablet at bedtime; lurasidone (Latuda) 40 mg PO DAILY mirtazapine 30 mg PO BEDTIME temazepam 30 mg (2 x 15 mg) PO BEDTIME PRN trazodone 100 - 150 mg (2 - 3 x 50 mg) PO BEDTIME PRN 90 days trimethoprim 100 mg PO BEDTIME HPI- Psychiatric Chief Complaint: Depression HPI Narrative: pt reports continued depression and anxiety. she reports feeling more down, not enjoying activites, low motivation. she reports more anxiety if she has to leave the house for any reason. she continues to function: picking up granddaughter from school several times a week, goes to library, grocery store, spends time at daughters home and eats dinner w family, exercsing, fgardening, taking walks, and reading. no SI or HI. close family friend struggling with health issues and progressing parkinsons very difficult for pt and family. Discussed options for changing meds, ect, or tms but pt not wanting any of these at this time. Past Psychiatric History: patient has a long history of bipolar disorder; had an episode of significant depression and November of 2002 treated with ECT Subjective Subjective Subjective Medication Compliance: Yes Side effects from medications: No Review of Systems Medical Review of Systems: unchanged Mental Status Exam Mental Status Exam Patient Appearance: Well Grooomed and Appropriate Patient Orientation: Person, Place, Time and Situation Level of Consciousness: Awake and Appropriate Patient Behavior: Appropriate and Cooperative Mood Description: Depressed Affect Description: Depressed Patient Cognition Impaired: No Ability to Follow Directions: Good Speech Pattern: Clear and Appropriate Memory Description: Intact Hallucinations: None Delusions: Not Present Thought Process: Intact and Goal Oriented Thought Content: positive for Intact and positive for Goal Oriented Judgement: Good Telehealth Telehealth Telehealth Platform: Other (please specify) (ashlyn.) Location of provider rendering services: practice address Location of patient: address on file Patient Identification confirmed using: Name, : Yes Telehealth method: video Patient verbally consented to treatment: Yes Patient verbally consented to billing insurance company: Yes Patient informed of any privacy concerns related to visit: Yes Minutes spent on Phone/Video with Pt.: 30 Assessment and Plan Assessment & Plan (1) Bipolar disorder, in partial remission, most recent episode depressed: Status: Acute Code(s): F31.75 - Bipolar disorder, in partial remission, most recent episode depressed (2) Anxiety, generalized: Status: Acute Code(s): F41.1 - Generalized anxiety disorder (3) Low vitamin D level: Status: Acute Code(s): R79.89 - Other specified abnormal findings of blood chemistry (4) Fatigue: Status: Acute Code(s): R53.83 - Other fatigue Plan meds per below labs per below to rule out medical reason for low energy and continued depression Medications: Refilled temazepam 30 mg (2 x 15 mg) PO BEDTIME PRN 60 caps 2RF sleep alprazolam 0.5 - 1 mg (0.5 - 1 x 1 mg) PO BID 3 months PRN 180 tabs 1RF anxiety MDD 2mg trazodone 100 - 150 mg (2 - 3 x 50 mg) PO BEDTIME 90 days PRN 270 tabs 2RF insomnia mirtazapine 30 mg PO BEDTIME 90 tabs 1RF lamotrigine 100 mg orally take 1.5 (150mg ) tablets in morning and 1 (100mg ) tablet at bedtime; 225 tabs 1RF lurasidone (Latuda) must administer with food (at least 350 calories) 40 mg PO DAILY 90 tabs 1RF Orders: Orders IRON PROFILE Today F31.75 - Bipolar disorder, in partial remission, most recent episode depressed, R53.83 - Other fatigue Magnesium Today F31.75 - Bipolar disorder, in partial remission, most recent episode depressed, R53.83 - Other fatigue Ferritin Today F31.75 - Bipolar disorder, in partial remission, most recent episode depressed, R53.83 - Other fatigue Transferrin Today F31.75 - Bipolar disorder, in partial remission, most recent episode depressed, R53.83 - Other fatigue Counseling and coordination of Care Pt. Self Management counseling: Maintenance-social rhythm, Mod caffeine/ETOH intake, Nutrition education and improvement, Sleep hygiene, Behavior activation and Problem solving Medication management counseling: Effectiveness, Side effects, Dosing range, Duration, Drug interaction and Adherence Diagnosis and Prognosis Counseling: Accuracy of diagnosis, Prognosis over time, Impact of diagnosis on life functions, Impact of family relationship, Problematic behaviors secondary to diagnosis and Adequacy of current interventions Details: I spent 40 minutes reviewing the record, seeing the patient and documenting in the medical record. Counseling provided to the patient/caregiver as outlined below. Addressed patient/caregiver concerns regarding current medication regime including effective adherence. Addressed patient/caregiver concerns regarding diagnosis and prognosis including accuracy of diagnosis, prognosis over time, impact of diagnosis. Addressed patient/caregiver concerns regarding impact of recent stressors. [facility] Medical History (Updated 12/17/24 @ 10:41 by Vira Ruiz APRN) Bipolar disorder with severe depression Bipolar disorder in partial remission Hypertension Social History: The patient lives alone; her daughter and grandchild live nearby in [place]. Patient is retired she used to work in [employer] patient's father committed suicide when the patient was age 1 patient. 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
== END 2025-01-19 10:06 | disposition home or self-care (01) ==
LOC: HO.HOP 10:01
PROVIDERS: PCP Family Medicine; Visit Provider Clinical Nurse Specialist Psychiatric/Mental Health
DX: F31.75 Bipolar disorder, in partial remission, most recent episode depressed (principal); F41.1 Generalized anxiety disorder; R79.89 Other specified abnormal findings of blood chemistry; R53.83 Other fatigue
CPT/HCPCS: 99214

== ENCOUNTER → 2025-01-19 10:01 | Outpatient (BNVA) | payer MEDICARE, OTHER, SELFPAY | PROVIDERS: PCP Family Medicine; Visit Provider Clinical Nurse Specialist Psychiatric/Mental Health | DX: F31.75 Bipolar disorder, in partial remission, most recent episode depressed (principal); F41.1 Generalized anxiety disorder; Z13.89 Encounter for screening for other disorder ==

== ENCOUNTER 2025-03-11 09:25 | Outpatient (AMB) | payer MEDICARE, OTHER, SELFPAY ==
--- NOTE | 2025-03-11 09:15 | MHC.OFFVISPS ---
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 Allergies No Known Allergies Allergy (Verified 11/12/23 15:33) Medication List - Last Reconciled 03/11/25 by Vira Ruiz APRN albuterol sulfate 90 mcg/actuation 2 puffs inhalation Q4-6H PRN alprazolam 0.5 - 1 mg (0.5 - 1 x 1 mg) PO BID PRN 3 months MDD 2mg amlodipine 10 mg PO DAILY celecoxib 200 mg PO DAILY estradiol 0.01%(0.1mg/gram) 0.5 grams vaginal 2XW famotidine 20 mg PO BEDTIME fluticasone furoate-vilanterol 100-25 mcg/dose (Breo Ellipta) 1 ea inhalation DAILY lamotrigine 100 mg orally take 1& 1/2 tabs in am and 1 tab at bedtime; lurasidone (Latuda) 40 mg PO DAILY mirtazapine 30 mg PO BEDTIME temazepam 30 mg (2 x 15 mg) PO BEDTIME PRN trazodone 100 - 150 mg (2 - 3 x 50 mg) PO BEDTIME PRN 90 days trimethoprim 100 mg PO BEDTIME HPI- Psychiatric Chief Complaint: depression HPI Narrative: pt seen via telehealth today for follow up re: Bipolar Depresson, anxiety, panic attacks, and insomnia. Pt reports a very difficult month due to medical issues; she ahd a UTI first that didn't respond to antibiotic and then had reaction to second antibiotic. She then developed pneumonia and was in hospital for 3 days . she got IV antibiotics, and her inhaler cahnged to Breo. she is still tired and has SOB. she hasresumed some activities but not all. She is still socializing with family; she lost 5 pounds and has low appetite; she is taking and ensure daily. Past Psychiatric History: patient has a long history of bipolar disorder; had an episode of significant depression and November of 2002 treated with ECT Subjective Subjective Subjective Medication Compliance: Yes Side effects from medications: No Review of Systems Medical Review of Systems: unchanged Mental Status Exam Mental Status Exam Patient Appearance: Well Grooomed and Appropriate Patient Orientation: Person, Place, Time and Situation Level of Consciousness: Awake and Appropriate Patient Behavior: Appropriate and Cooperative Mood Description: Depressed Affect Description: Depressed and Blunted Patient Cognition Impaired: No Ability to Follow Directions: Good Speech Pattern: Clear Memory Description: Intact Hallucinations: None Delusions: Not Present Thought Process: Intact and Goal Oriented Thought Content: positive for Intact and positive for Poverty of Content Judgement: Good Telehealth Telehealth Telehealth Platform: Other (please specify) (ashlyn.) Location of provider rendering services: practice address Location of patient: address on file Patient Identification confirmed using: Name, : Yes Telehealth method: video Patient verbally consented to treatment: Yes Patient verbally consented to billing insurance company: Yes Patient informed of any privacy concerns related to visit: Yes Minutes spent on Phone/Video with Pt.: 28 Assessment and Plan Assessment & Plan (1) Bipolar disorder, in partial remission, most recent episode depressed: Status: Acute Code(s): F31.75 - Bipolar disorder, in partial remission, most recent episode depressed (2) Anxiety, generalized: Status: Acute Code(s): F41.1 - Generalized anxiety disorder (3) Insomnia disorder with non-sleep disorder mental comorbidity: Status: Acute Code(s): G47.00 - Insomnia, unspecified Plan continue medications as per below follow up in 4 weeks obtain records [facility] PCP for labs Medications: Refilled alprazolam 0.5 - 1 mg (0.5 - 1 x 1 mg) PO BID PRN 180 tabs 1RF anxiety 3 months MDD 2mg lamotrigine 100 mg orally take 1& 1/2 tabs in am and 1 tab at bedtime; 225 tabs 1RF lurasidone (Latuda) must administer with food (at least 350 calories) 40 mg PO DAILY 90 tabs 1RF mirtazapine 30 mg PO BEDTIME 90 tabs 1RF temazepam 30 mg (2 x 15 mg) PO BEDTIME PRN 60 caps 2RF sleep trazodone 100 - 150 mg (2 - 3 x 50 mg) PO BEDTIME PRN 270 tabs 2RF insomnia 90 days Counseling and coordination of Care Pt. Self Management counseling: Maintenance-social rhythm, Behavior activation and General coping skills Medication management counseling: Effectiveness, Side effects, Dosing range, Duration, Drug interaction and Adherence Diagnosis and Prognosis Counseling: Accuracy of diagnosis, Prognosis over time, Impact of diagnosis on life functions, Impact of family relationship, Problematic behaviors secondary to diagnosis and Adequacy of current interventions Details: I spent 40 minutes reviewing the record, seeing the patient and documenting in the medical record. Counseling provided to the patient/caregiver as outlined below. Addressed patient/caregiver concerns regarding current medication regime including effective adherence. Addressed patient/caregiver concerns regarding diagnosis and prognosis including accuracy of diagnosis, prognosis over time, impact of diagnosis. Addressed patient/caregiver concerns regarding impact of recent stressors. [facility] Medical History (Updated 03/11/25 @ 13:50 by Vira Ruiz APRN) Bipolar disorder with severe depression Bipolar disorder in partial remission Hypertension Social History: The patient lives alone; her daughter and grandchild live nearby in [place]. Patient is retired she used to work in [employer] patient's father committed suicide when the patient was age 1 patient. 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
== END 2025-03-11 10:20 | disposition home or self-care (01) ==
LOC: HO.HOP 09:25
PROVIDERS: PCP Family Medicine; Visit Provider Clinical Nurse Specialist Psychiatric/Mental Health
DX: F31.75 Bipolar disorder, in partial remission, most recent episode depressed (principal); F41.1 Generalized anxiety disorder; G47.00 Insomnia, unspecified
CPT/HCPCS: 99214

== ENCOUNTER → 2025-03-11 09:25 | Outpatient (BNVA) | payer MEDICARE, OTHER, SELFPAY | PROVIDERS: PCP Family Medicine; Visit Provider Clinical Nurse Specialist Psychiatric/Mental Health | DX: Z13.89 Encounter for screening for other disorder (principal) ==

== ENCOUNTER 2025-04-08 10:05 | Outpatient (AMB) | payer MEDICARE, OTHER, SELFPAY ==
--- NOTE | 2025-04-08 09:31 | MHC.OFFVISPS ---
Intake Intake Visit Reasons: depression Safety Net Maker Required: No Allergies No Known Allergies Allergy (Verified 11/12/23 15:33) Medication List - Last Reconciled 04/08/25 by Vira Ruiz APRN albuterol sulfate 90 mcg/actuation 2 puffs inhalation Q4-6H PRN alprazolam 0.5 - 1 mg (0.5 - 1 x 1 mg) PO BID PRN 3 months MDD 2mg amlodipine 10 mg PO DAILY celecoxib 200 mg PO DAILY estradiol 0.01%(0.1mg/gram) 0.5 grams vaginal 2XW famotidine 20 mg PO BEDTIME fluticasone furoate-vilanterol 100-25 mcg/dose (Breo Ellipta) 1 ea inhalation DAILY lamotrigine 100 mg orally take 1& 1/2 tabs in am and 1 tab at bedtime; lurasidone (Latuda) 40 mg PO DAILY mirtazapine 30 mg PO BEDTIME temazepam 30 mg (2 x 15 mg) PO BEDTIME PRN trazodone 100 - 150 mg (2 - 3 x 50 mg) PO BEDTIME PRN 90 days trimethoprim 100 mg PO BEDTIME HPI- Psychiatric Chief Complaint: depression HPI Narrative: pt seen via telehealth today for follow up re: Bipolar Depresson, anxiety, panic attacks, and insomnia. Pt reports continued depression and anxiety; She is doing respiratory rehab 2 times a week; she is driving to library and to visit friend despite anxiety. she has resumed some activities; she is cleaning and gardening; she is doing some wood stacking; sleep is variable still; she denies SI or HI. Past Psychiatric History: patient has a long history of bipolar disorder; had an episode of significant depression and November of 2002 treated with ECT Subjective Subjective Subjective Medication Compliance: Yes Side effects from medications: No Review of Systems Medical Review of Systems: unchanged Mental Status Exam Mental Status Exam Patient Appearance: Well Grooomed and Appropriate Patient Orientation: Person, Place, Time and Situation Level of Consciousness: Awake and Appropriate Patient Behavior: Appropriate and Cooperative Mood Description: Depressed and Anxious Affect Description: Depressed and Flat Patient Cognition Impaired: No Ability to Follow Directions: Good Speech Pattern: Clear Memory Description: Intact Hallucinations: None Delusions: Not Present Thought Process: Intact and Goal Oriented Thought Content: positive for Intact and positive for Poverty of Content Judgement: Good Telehealth Telehealth Telehealth Platform: Other (please specify) ([email or web address]) Location of provider rendering services: practice address Location of patient: address on file Patient Identification confirmed using: Name, : Yes Telehealth method: video Patient verbally consented to treatment: Yes Patient verbally consented to billing insurance company: Yes Patient informed of any privacy concerns related to visit: Yes Minutes spent on Phone/Video with Pt.: 26 Assessment and Plan Assessment & Plan (1) Bipolar disorder, in partial remission, most recent episode depressed: Status: Acute Code(s): F31.75 - Bipolar disorder, in partial remission, most recent episode depressed (2) Anxiety, generalized: Status: Acute Code(s): F41.1 - Generalized anxiety disorder (3) Insomnia disorder with non-sleep disorder mental comorbidity: Status: Acute Code(s): G47.00 - Insomnia, unspecified Plan continue medications as per below follow up in 4 weeks no refills needed at this time Counseling and coordination of Care Pt. Self Management counseling: Maintenance-social rhythm, Behavior activation and General coping skills Medication management counseling: Effectiveness, Side effects, Dosing range, Duration, Drug interaction and Adherence Diagnosis and Prognosis Counseling: Accuracy of diagnosis, Prognosis over time, Impact of diagnosis on life functions, Impact of family relationship, Problematic behaviors secondary to diagnosis and Adequacy of current interventions Details: I spent 35 minutes reviewing the record, seeing the patient and documenting in the medical record. Counseling provided to the patient/caregiver as outlined below. Addressed patient/caregiver concerns regarding current medication regime including effective adherence. Addressed patient/caregiver concerns regarding diagnosis and prognosis including accuracy of diagnosis, prognosis over time, impact of diagnosis. Addressed patient/caregiver concerns regarding impact of recent stressors. [facility] Medical History (Updated 03/11/25 @ 13:50 by Vira Ruiz APRN) Bipolar disorder with severe depression Bipolar disorder in partial remission Hypertension Social History: The patient lives alone; her daughter and grandchild live nearby in [place]. 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
--- OUTSIDE RECORDS SUMMARY | 2025-04-08 10:53 | XMS_ITS | Data Portability ---
Author Organization [facility], , [facility] Address [address] [place] [address] Care Team Providers Care It Teacher Name Role Phone DMITRI HARTMAN Rug Washer [facility] Pile Driver Engineer [phone] [facility] Service Supervisor CUONG TATUM Supervisor [phone] DU[facility] DUTTA Sports Medicine MARIO SEVILLA Orthopedic Surgeon DMITRI RODRÍGUEZ Equipment Scheduler SHARONA VALLE Urologist LEATHA MCKEON Primary Care Provider Assessment Encounter Date Assessment Date Assessment LastModified by Organization Details LastModified Time 02/02/2025 02/02/2025 My total time spent today documenting and providing coordinated care for this patient is prep 5 minutes, visit/document ation 25 minutes, total time 30 minutes. I have reviewed, collected, and updated relevant history and performed a physical exam. I have reviewed: labs, x-rays, specialty notes, and discharge summaries as appropriate. Below is my assessment and plan for this patient s care today for worsening chronic problem, continued chronic problems, new subacute problem. [email or web address] Not available 02/02/2025 08:26:54 03/09/2025 03/09/2025 My total time spent today documenting and providing coordinated care for this patient is prep 10 minutes, visit/document ation 35 minutes, total time 45 minutes. I have reviewed, collected, and updated relevant history and performed a physical exam. I have reviewed: labs, x-rays, specialty notes, and discharge summaries as appropriate. Below is my assessment and plan for this patient s care today for worsening chronic problem, continued chronic problems, new subacute problem. [facility] 03/09/2025 12:57:29 Plan of Treatment Reminders Order Date Submit Date Provider Last Modified By Organization Details Last Modified Time Details Appointments LAB Follow- Up 2024 06:30A M [facility] Lab Not available Not available Not available Medical Managem ent 30 2024 08:00A M LEATHA BRAVO R, BEEF TAGGER Not available Not available Not available Lab CMP, serum or plasma 2024 025 [facility], [address] [place] [address], [id number], 03/09/2025 13:04:58 lipid panel, serum 2024 025 [facility], [address] [place] [address], [id number], 03/09/2025 13:04:57 urinaly sis, dipstic k 2024 025 [facility], [address] [place] [address], [id number], 01/27/2025 16:26:52 culture , urine 2024 025 [facility], [address] [place] [address], [id number], 01/31/2025 23:42:31 urinaly sis, dipstic k [address] [facility], [address] [place] [address], [id number], 01/12/2025 09:37:35 culture , urine 2024 025 [facility], [address] [place] [address], [id number], 01/11/2025 14:12:30 urinaly sis, dipstic k 2024 025 [facility], [address] [place] [address], [id number], 01/08/2025 14:17:05 Referral None recorde d. Procedures None recorde d. Surgeries None recorde d. Imaging None recorde d. Medication Orders celecox ib 200 mg capsule 2024 [facility]/Pharmacy #[id number], [address], [place], [address], 03/09/2025 12:23:43 hydroco done 5 mg-acet aminoph en 325 mg tablet 2024 [facility] [place] [address], [address] [place] [address], [place], [address], 03/09/2025 13:43:49 Cipro 250 mg tablet 2024 [facility] [place] [address], [address] [place] [address], [id number], 01/29/2025 08:36:50 fosfomy nikole trometh amine 3 gram oral packet 2024 [facility] [place] [address], [address] [place] [address], [id number], 03/09/2025 13:43:48 Macrobi d 100 mg capsule 2024 [place] [address], [address] [place] [address], [id number], 01/12/2025 09:53:22 Patient TargetsNo targets recorded. Patient Instructions Encounter Date Encounter Id Patient Instructions Last Modified By Organization Details Last Modified Time 01/08/2025 [id number] urinary tract infection (uti) education [email or web address] Not available 01/08/2025 11:02:35 03/09/2025 [id number] I am aware of e inpatient facility discharge medications, the medication list above has been reconciled with those medications and reflects my understanding of an up to date medication list for this patient. Patient care plan: Dear Bhumi Alex, It was great to see you today! Below is a summary of the plan we decided upon together: Hospital follow-up - Continue resting at home and stay hydrated. - Keep your pulmonology appointment on for possible breathing tests. - Use cooling centers in [place] if your house becomes too hot. Breathing care and COPD - Take Breo Ellipta one puff each morning as directed. - Use your albuterol inhaler only when short of breath; track how often you need it. - If you start needing the albuterol more than four times a day or wake up coughing, please call us. - The computer network specialist may recommend a nebulizer or another inhaler; we will review their advice together. Post-viral bronchitis recovery - No antibiotics are needed right now; watch for fever, new cough or colored mucus. - Rest when tired and increase activity slowly as you regain strength. Blood pressure - Your blood pressure looks good; keep taking amlodipine daily. - Continue limiting salt in your meals. Mood and anxiety - Keep taking your mood and sleep medicines as prescribed. - Use alprazolam only when anxiety feels overwhelming. - Practice deep breathing and relaxation; let us know if anxiety worsens. Medication refills - A ninety-day refill for celecoxib has been sent to [facility] [employer]. - [facility] will notify us if any other refills are due. Next steps - Routine lab work is scheduled for 05 25; fasting is not required. - Our next visit is in May, but contact us sooner through the portal or by phone if any concerns arise. If you have any questions or experience any new symptoms, please do not hesitate to reach out to our office. Sincerely, Leatha Mckeon NP and your [facility] [email or web address] Not available 03/09/2025 12:29:56 Reason for Referral None Reported. Results Created Date Observation Date Name Description Value Unit Range Abnormal Flag Note LastModifiedBy Organization Detail LastModifiedTime 01/09/2001/08/2025 POC UA glu UA NEGATI VE Not Available [facility] [address] [place], [address], 01/08/2025 14:17:05 01/09/2001/08/2025 POC UA clarity UA CLOUDY Not Available [facility] [address] [place], [address], 01/08/2025 14:17:05 01/09/2001/08/2025 POC UA uro UA 0.2000 Not Available [facility] [address] [place] [address], [id number], 01/08/2025 14:17:05 01/09/2001/08/2025 POC UA ket UA 1+ abnormal Not Available [facility] [address] [place] [address], [id number], 01/08/2025 14:17:05 01/09/2001/08/2025 POC UA pro UA NEGATI VE Not Available [facility] [address] [place] [address], [id number], 01/08/2025 14:17:05 01/09/2001/08/2025 POC UA nit UA POSITI VE abnormal Not Available [facility] [address] [place] [address], [id number], 01/08/2025 14:17:05 01/09/2001/08/2025 POC UA jaelyn UA 2+ abnormal Not Available [facility] [address] [place] [address], 7[address], 01/08/2025 14:17:05 01/09/2001/08/2025 POC UA pH UA 7.0000 Not Available [facility] [address] [place] [address], [address], 01/08/2025 14:17:05 01/09/2001/08/2025 POC UA SG UA 1.0150 Not Available [facility] [address] [place] [address], [address], 01/08/2025 14:17:05 01/09/2001/08/2025 POC UA color UA YELLOW Not Available [facility] [address] [place] [address], [address], 01/08/2025 14:17:05 01/09/2001/08/2025 POC UA blo UA TRACE- INTACT abnormal Not Available [facility] [address] [place], [address], 01/08/2025 14:17:05 01/09/2001/08/2025 POC UA zahra UA NEGATI VE Not Available [facility] [address] [place], [address], 01/08/2025 14:17:05 01/09/20 25 01/11/2025 CULTU RE, URINE , ROUTI NE culture, urine, routine abnormal CULTU RE, URINE , ROUTI NE Micro Numbe r: [id number] Test Statu s: Final Speci men Sourc e: Urine Speci men Quali ty: Adequ ate Resul t: Great er than 100,0 00 CFU/m L of Prote us mirab ilis P.casper abili s ----- ----- ----- - INT MARIALUISA AMP/S ULBAC CARRERA R >=32 CEFAZ ALEX R >=64 CEFEP BETTIE R 16 CEFTA ZIDIM E S <=1 CEFTR IAXON E R >=64 CIPRO FLOXA NIKOLE S 0.12 GENTA MICIN S <=1 LEVOF LOXAC IN S <=0.1 2 MEROP ENEM S 0.5 NITRO FURAN TOIN R 256 PIP/T AZOBA CTAM S <=4 TRIME THOPR IM/ALVAREZ LFA R >=320 S = Susce ptibl e I = Inter media te R = Resis tant NS = Not susce ptibl e SDD = Susce ptibl e Dose Depen dent * = Not Teste d NR = Not Repor raymundo NN = See Thera py Comme nts Not Available [facility] [address], [place], [address], 01/11/2025 14:12:30 01/13/20 25 01/12/2025 POC UA glu UA NEGATI VE Not Available [facility] [address] [place] [address], [address], 01/12/2025 09:36:09 01/13/2001/12/2025 POC UA clarity UA CLEAR Not Available [facility] [address] [place] [address], 6[address], 01/12/2025 09:36:09 01/13/2001/12/2025 POC UA uro UA 0.2000 Not Available [facility] [address] [place] [address], 711[address], 01/12/2025 09:36:09 01/13/2001/12/2025 POC UA ket UA 1+ abnormal Not Available [facility] [address] [place] [address], 46716, 01/12/2025 09:36:09 01/13/2001/12/2025 POC UA pro UA NEGATI VE Not Available [facility] [address] [place] [address], [address], 01/12/2025 09:36:09 01/13/2001/12/2025 POC UA nit UA NEGATI VE Not Available [facility] [address] [place] [address], [id number], 01/12/2025 09:36:09 01/13/2001/12/2025 POC UA jaelyn UA 2+ abnormal Not Available [facility] [address] [place] [address], 13956, 01/12/2025 09:36:09 01/13/2001/12/2025 POC UA pH UA 6.0000 Not Available [facility] [address] [place] [address], 90983, 01/12/2025 09:36:09 01/13/2001/12/2025 POC UA SG UA 1.0150 Not Available [facility] [address] [place] [address], [id number], 01/12/2025 09:36:09 01/13/20 25 01/12/2025 POC UA color UA YELLOW Not Available [facility] [address] [place] [address], [address]14, 01/12/2025 09:36:09 01/13/20 25 01/12/2025 POC UA blo UA NEGATI VE Not Available [facility] [address] [place] [address], 65985, 01/12/2025 09:36:09 01/13/2001/12/2025 POC UA zahra UA NEGATI VE Not Available [facility] [address] [place] [address], 74786, 01/12/2025 09:36:09 01/28/2001/27/2025 POC UA glu UA NEGATI VE Not Available [facility] [address] [place] [address], 6[address], 01/27/2025 13:43:18 01/28/20 25 01/27/2025 POC UA clarity UA SLIGHT LY CLOUDY Not Available [facility] [address] [place] [address], 45568, 01/27/2025 13:43:18 01/28/2001/27/2025 POC UA uro UA 0.2000 Not Available [facility] [address] [place] [address], [address], 01/27/2025 13:43:18 01/28/20 25 01/27/2025 POC UA ket UA NEGATI VE Not Available [facility] [address] [place] [address], 89147, 01/27/2025 13:43:18 01/28/20 25 01/27/2025 POC UA pro UA NEGATI VE Not Available [facility] [address] [place] [address], [address]18, 01/27/2025 13:43:18 01/28/20 25 01/27/2025 POC UA nit UA NEGATI VE Not Available [facility] [address] [place] [address], 31406, 01/27/2025 13:43:18 01/28/20 25 01/27/2025 POC UA jaelyn UA 1+ abnormal Not Available [facility] [address] [place] [address], 31573, 01/27/2025 13:43:18 01/28/20 25 01/27/2025 POC UA pH UA 6.5000 Not Available [facility] [address] [place] [address], 42399, 01/27/2025 13:43:18 01/28/20 25 01/27/2025 POC UA SG UA 1.0100 Not Available [facility] [address] [place] [address], 0[address], 01/27/2025 13:43:18 01/28/20 25 01/27/2025 POC UA color UA LIGHT YELLOW Not Available [facility] [address] [place] [address], 17750, 01/27/2025 13:43:18 01/28/20 25 01/27/2025 POC UA blo UA TRACE- INTACT abnormal Not Available [facility] [address] [place] [address], 65267, 01/27/2025 13:43:18 01/28/20 25 01/27/2025 POC UA zahra UA NEGATI VE Not Available [facility] [address] [place] [address], 14167, 01/27/2025 13:43:18 01/28/20 25 01/31/2025 CULTU RE, URINE , ROUTI NE culture, urine, routine abnormal CULTU RE, URINE , ROUTI NE Micro Numbe r: [id number] Test Statu s: Final Speci men Sourc e: Urine Speci men Quali ty: Adequ ate Resul t: 10,00 0-49, 000 CFU/m L of Prote us mirab ilis P.casper abili s ----- ----- ----- - INT MARIALUISA AMP/S ULBAC CARRERA R >=32 CEFAZ ALEX R >=64 CEFEP BETTIE R 16 CEFTA ZIDIM E S <=1 CEFTR IAXON E R >=64 CIPRO FLOXA NIKOLE S 0.12 GENTA MICIN S <=1 LEVOF LOXAC IN S <=0.1 2 MEROP ENEM S 0.5 NITRO FURAN TOIN R 128 PIP/T AZOBA CTAM S <=4 TRIME THOPR IM/ALVAREZ LFA R >=320 S = Susce ptibl e I = Inter media te R = Resis tant NS = Not susce ptibl e SDD = Susce ptibl e Dose Depen dent * = Not Teste d NR = Not Repor raymundo NN = See Thera py Comme nts Not Available [facility] [address], [place], [address], 01/31/2025 23:42:31 01/29/2001/28/2025 CBC WBC 7.79 K/ L 3.98-1 0.04 Not Available [address], [address], 01/28/2025 09:06:22 01/29/2001/28/2025 CBC RBC 4.48 M/ L 3.93-5 .22 Not Available [address], [address], 01/28/2025 09:06:22 01/29/2001/28/2025 CBC HGB 13.3 g/dL 11.2-1 5.7 Not Available [address], [address], 01/28/2025 09:06:22 01/29/2001/28/2025 CBC HCT 40.8 % 34.1-4 4.9 Not Available [address], [address], 01/28/2025 09:06:22 01/29/2001/28/2025 CBC MCV 91.1 fL 79.4-9 4.8 Not Available [address], [address], 01/28/2025 09:06:22 01/29/2001/28/2025 CBC MCH 29.7 pg 25.6-3 2.2 Not Available [address], [address], 01/28/2025 09:06:22 01/29/2001/28/2025 CBC MCHC 32.6 g/dL 32.2-3 5.5 Not Available [address], [address], 01/28/2025 09:06:22 01/29/2001/28/2025 CBC plt 337 K/ L 182-36 9 Not Available [address], [address], 01/28/2025 09:06:22 01/29/2001/28/2025 CBC MPV 9.6 fL 9.4-12 .3 Not Available [address], [address], 01/28/2025 09:06:22 01/29/2001/28/2025 CBC neut% 63.5 % 34.0-7 1.1 Not Available [address], [address], 01/28/2025 09:06:22 01/29/2001/28/2025 CBC neut# 4.95 1.56-6 .13 Not Available [address], [address], 01/28/2025 09:06:22 01/29/2001/28/2025 CBC lymph % 26.4 % 19.3-5 1.7 Not Available [address], [address], 01/28/2025 09:06:22 01/29/2001/28/2025 CBC lymph # 2.06 K/ L 1.18-3 .74 Not Available [address], [address], 01/28/2025 09:06:22 01/29/2001/28/2025 CBC mono% 7.6 % 4.7-12 .5 Not Available [address], [address], 01/28/2025 09:06:22 01/29/2001/28/2025 CBC mono# 0.59 0.24-0 .56 high Not Available [address], [address], 01/28/2025 09:06:22 01/29/2001/28/2025 CBC eo% 1.3 % 0.7-5. 8 Not Available [address], [address], 01/28/2025 09:06:22 01/29/2001/28/2025 CBC eo# 0.10 0.04-0 .36 Not Available [address], [address], 01/28/2025 09:06:22 01/29/2001/28/2025 CBC baso% 0.8 % 0.1-1. 2 Not Available [address], [address], 01/28/2025 09:06:22 01/29/2001/28/2025 CBC baso# 0.06 0.00-0 .08 Not Available [address], [address], 01/28/2025 09:06:22 01/29/2001/28/2025 CBC RDW-CV 13.7 % 11.7-1 4.4 Not Available [address], [address], 01/28/2025 09:06:22 01/29/2001/28/2025 CBC Ig% 0.400 % 0.000- 1.500 Ig % >0.5 Indic ates possi ble Left Shift Not Available [address] [place], [address], 01/28/2025 09:06:22 01/29/2001/28/2025 CBC Ig# 0.030 0.000- 0.093 Not Available [address], [address], 01/28/2025 09:06:22 01/29/2001/28/2025 CBC NRBC% 0.0 % 0.0-0. 2 Not Available [address], [address], 01/28/2025 09:06:22 01/29/2001/28/2025 CBC NRBC# 0.000 0.000- 0.012 Not Available [address], [address], 01/28/2025 09:06:22 01/29/2001/28/2025 FREE T4 free T4 1.00 NG/dL 0.75-1 .54 Not Available [address], [address], 01/28/2025 15:23:32 01/29/2001/28/2025 FANY TIN ferritin 25 NG/mL 15-200 Not Available [address], [address], 01/28/2025 15:23:33 01/29/2001/28/2025 TSH TSH 1.46 uIU/m L 0.50-6 .00 The Ameri can Colle ge of Endoc rinol ogy and Ameri can Thyro id Assoc iatio n recom mend goal TSH value s betwe en 0.4-4 .0 mIU/m L. Not Available [address], [address], 01/28/2025 15:43:05 01/29/20 25 01/29/2025 VITAM IN D 25-HY DROXY TOTAL vitamin D 25-hydroxy EIA 53.1 NG/mL 20.0-9 9.9 Thera py is based on measu remen t of total 25-OH D, with level s less than 20 ng/mL indic ative of Vitam in D defic iency . Level s betwe en 20ng/ mL and 30 ng/mL sugge st insuf ficie ncy. Optim al Level s are great er than 30 ng/mL . Not Available [address], [address], 01/29/2025 14:30:13 01/29/20 25 02/01/2025 LAMOT RIGIN E lamotrigine 5.8 mcg/m L 2.5-15 .0 This test was devha oneill and its payton tical perfo rmanc e eden cteri stics have been deter mined by [facility] [place] [place]. It has not been clear ed or appro maxine by the U.S. Food and Drug Admin istra tion. This assay has been valid ated pursu ant to the CLIA regul ation s and is used for clini [place] purpo ses. Not Available [facility] [address], [address], 02/01/2025 13:43:10 01/29/20 25 02/01/2025 TRANS FANY N transferrin 225 mg/dL 188-34 1 normal Not Available [facility] [address], [address], 02/01/2025 13:43:12 01/29/20 25 02/01/2025 COMP. METAB OLIC PANEL glucose 95 mg/dL 70-100 Not Available [address], [address], 02/01/2025 13:59:30 01/29/20 25 02/01/2025 COMP. METAB OLIC PANEL BUN 10 mg/dL 7-18 Not Available [address], [address], 02/01/2025 13:59:30 01/29/20 25 02/01/2025 COMP. METAB OLIC PANEL creatinine 0.8 mg/dL 0.8-1. 3 Not Available [address], [address], 02/01/2025 13:59:30 01/29/20 25 02/01/2025 COMP. METAB OLIC PANEL B/C 12.5 ratio Not Available [address], [address], 02/01/2025 13:59:30 01/29/20 25 02/01/2025 COMP. METAB OLIC PANEL GFR >=60ML /MIN mL/mi n normal >=60m L/min - Kim l or midly reduc ed <60mL /min- Decre ased kidne y funct ion <15mL /min - Kidne y failu re [facility] calcu lates estim ated Glome rular Filtr ation Rate (eGFR ) using the Chron ic Kidne y Disea se Epide miolo gy Colla borat ion (CKD- EPI) Equat ion (Young r et. al 2020) as recom clair d by the Natio nal Kidne y Found ation . eGFR is based on age, serum creat inine , and sex. CKD-E PI does not calcu late eGFR by race, does not apply to child ruthie (age <18 years ), and shoul d not be used in pregn best. Not Available [address], [address], 02/01/2025 13:59:30 01/29/20 25 02/01/2025 COMP. METAB OLIC PANEL sodium 141 mmol/ L 136-14 5 Not Available [address], [address], 02/01/2025 13:59:30 01/29/20 25 02/01/2025 COMP. METAB OLIC PANEL potassium 4.3 mmol/ L 3.5-5. 1 Not Available [address], [address], 02/01/2025 13:59:30 01/29/20 25 02/01/2025 COMP. METAB OLIC PANEL chloride 102 mmol/ L 96-107 Not Available [address], [address], 02/01/2025 13:59:30 01/29/20 25 02/01/2025 COMP. METAB OLIC PANEL anion gap 11.5 5.0-15 .0 Not Available [address], [address], 02/01/2025 13:59:30 01/29/20 25 02/01/2025 COMP. METAB OLIC PANEL CO2 28 mmol/ L 21-32 Not Available [address], [address], 02/01/2025 13:59:30 01/29/20 25 02/01/2025 COMP. METAB OLIC PANEL calcium 9.2 mg/dL 8.5-10 .3 Not Available [address], [address], 02/01/2025 13:59:30 01/29/20 25 02/01/2025 COMP. METAB OLIC PANEL total protein 6.3 g/dL 6.4-8. 2 low Not Available [address], [address], 02/01/2025 13:59:30 01/29/20 25 02/01/2025 COMP. METAB OLIC PANEL albumin 3.8 g/dL 3.4-5. 0 Not Available [address], [address], 02/01/2025 13:59:30 01/29/20 25 02/01/2025 COMP. METAB OLIC PANEL globulin 2.5 g/dL Not Available [address], [address], 02/01/2025 13:59:30 01/29/20 25 02/01/2025 COMP. METAB OLIC PANEL A/G 1.5 ratio 0.8-2. 0 Not Available [address], [address], 02/01/2025 13:59:30 01/29/20 25 02/01/2025 COMP. METAB OLIC PANEL total bilirubin 0.30 mg/dL 0.00-1 .00 Not Available [address], [address], 02/01/2025 13:59:30 01/29/20 25 02/01/2025 COMP. METAB OLIC PANEL AST 11 U/L 0-37 Not Available [address], [address], 02/01/2025 13:59:30 01/29/20 25 02/01/2025 COMP. METAB OLIC PANEL ALT 23 U/L 6-63 Not Available [address], [address], 02/01/2025 13:59:30 01/29/20 25 02/01/2025 COMP. METAB OLIC PANEL alk. phos. 70 U/L 50-136 Not Available [address], [address], 02/01/2025 13:59:30 01/29/20 25 02/01/2025 LIPID PANEL cholesterol 197 mg/dL <200 mg/dl Anish able 200-2 39 mg/dl Borde rline High >240 mg/dl High Not Available [address], [address], 02/01/2025 13:59:32 01/29/20 25 02/01/2025 LIPID PANEL triglyceride s 37 mg/dL <150 mg/dL Kim l 150-1 99 mg/dL Borde rline High 200-4 99 mg/dL High >500 mg/dL Very High Not Available [address], [address], 02/01/2025 13:59:32 01/29/2002/01/2025 LIPID PANEL direct HDL 79 mg/dL <40 mg/dl - Major Risk for CHD >60 mg/dl - Negat adebayo Risk for CHD Not Available [address], [address], 02/01/2025 13:59:32 01/29/2002/01/2025 IRON PANEL iron 72 ug/dL 35-150 Not Available [address], [address], 02/01/2025 13:59:33 01/29/2002/01/2025 IRON PANEL T.I.B.C. 289 ug/dL 250-45 0 Not Available [address], [address], 02/01/2025 13:59:33 01/29/2002/01/2025 IRON PANEL % saturation 24.9 % Not Available [address], [address], 02/01/2025 13:59:33 01/29/2002/01/2025 MAGNE SIUM magnesium 1.9 mg/dL 1.8-2. 4 Not Available [address], [address], 02/01/2025 13:59:34 01/29/2002/01/2025 LDL - CALCU LATED LDL - calculated 111 RISK CATEG ORY LDL GOAL _ CHD or CHD Risk Equiv alent s <100 mg/dl (10-y ear risk >20%) 2+ Risk Facto rs <130 mg/dl (10-y ear risk <= 20%) 0-1 Risk Facto r <160 mg/dl Almo st all peopl e with 0-1 risk facto r have a 10 year risk <10%, thus 10 year risk asses ment in peopl e with 0-1 risk facto r is not neces syed. Not Available [address], [address], 02/01/2025 13:59:35 01/29/20 25 02/01/2025 VITAM IN B12 vitamin B12 670 pg/mL 230-10 50 Not Available [address], [address], 02/01/2025 14:20:52 02/05/20 25 02/04/2025 URINA LYSIS color YELLOW yellow Not Available [address], [address], 02/04/2025 16:59:05 02/05/20 25 02/04/2025 URINA LYSIS clarity CLEAR clear Not Available [address], [address], 02/04/2025 16:59:05 02/05/20 25 02/04/2025 URINA LYSIS glucose NEGATI VE negati ve Not Available [address], [address], 02/04/2025 16:59:05 02/05/20 25 02/04/2025 URINA LYSIS bilirubin NEGATI VE negati ve Not Available [address], [address], 02/04/2025 16:59:05 02/05/20 25 02/04/2025 URINA LYSIS ketones NEGATI VE negati ve Not Available [address], [address], 02/04/2025 16:59:05 02/05/20 25 02/04/2025 URINA LYSIS specific gravity 1.010 1.001- 1.035 Not Available [address], [address], 02/04/2025 16:59:05 02/05/20 25 02/04/2025 URINA LYSIS pH 6.0 5.0-8. 0 Not Available [address], [address], 02/04/2025 16:59:05 02/05/20 25 02/04/2025 URINA LYSIS protein NEGATI VE negati ve Not Available [address], [id number], 02/04/2025 16:59:05 02/05/20 25 02/04/2025 URINA LYSIS urobilinogen 0.2 E.U./D L <1.0 Not Available [address], [id number], 02/04/2025 16:59:05 02/05/20 25 02/04/2025 URINA LYSIS nitrates NEGATI VE negati ve Not Available [address], [id number], 02/04/2025 16:59:05 02/05/20 25 02/04/2025 URINA LYSIS blood NEGATI VE negati ve Not Available [address], [id number], 02/04/2025 16:59:05 02/05/20 25 02/04/2025 URINA LYSIS leukocytes 3+ negati ve abnormal Not Available [address], [address], 02/04/2025 16:59:05 02/05/20 25 02/04/2025 URINE , MICRO SCOPI C WBC 5-10 hpf 0-4/hp f Not Available [address], [address], 02/04/2025 17:13:35 02/05/20 25 02/04/2025 URINE , MICRO SCOPI C RBC 0-2 hpf 0-2/hp f Not Available [address], [address], 02/04/2025 17:13:35 02/05/20 25 02/04/2025 URINE , MICRO SCOPI C bacteria TRACE none seen Not Available [address], [address], 02/04/2025 17:13:35 02/05/20 25 02/04/2025 URINE , MICRO SCOPI C yeast NONE SEEN none seen Not Available [address], [address], 02/04/2025 17:13:35 02/05/20 25 02/04/2025 URINE , MICRO SCOPI C squamous epithelial cells 3 hpf 0-5 Not Available [address], [address], 02/04/2025 17:13:35 02/05/20 25 02/04/2025 URINE , MICRO SCOPI C mucous NONE SEEN none seen Not Available [address], [address], 02/04/2025 17:13:35 02/05/20 25 02/06/2025 CULTU RE, URINE , ROUTI NE culture, urine, routine CULTU RE, URINE , ROUTI NE Micro Numbe r: [id number] Test Statu s: Final Speci men Sourc e: Urine Speci men Quali ty: Adequ ate Resul t: No Growt h Not Available [employer] [facility] [address], [address], 02/06/2025 08:26:02 02/13/2002/12/2025 LDCT, chest , for lung cance r scree radha No observ ation record ed. [facility] [address] [place], [address], 02/16/2025 11:28:25 03/23/20 25 02/12/2025 LDCT, chest , for lung cance r scree radha No observ ation record ed. la nena [facility] [address] [place], [address], 03/31/2025 11:04:52 Result Notes None recorded. Problems Name Problem SNOMED Code Status Onset Date Resolution Date Notes Provider Name and Address Organization Details Recorded Time Foot pain 00823048 Completed 04/12/2015 Vira Buchanan MD [address] [place] [address], [address] , [facility] 5 16:06:13 Viral syndrome 145627120 Completed 04/12/2015 Vira Buchanan MD [address] [place] [address], [address] , [facility] 5 16:06:13 Pneumoni a 343057623 Completed 11/15/2018 Marcelo Griffin Jr. MD [address] [place] [address], [address] , [facility] 9 04:43:52 Acute exacerba tion of chronic obstruct adebayo pulmonar y disease 486818284 Completed 11/15/2018 Marcelo Griffin Jr. MD [address] [place] [address], [address] , [facility] 9 04:43:49 History of malignan t neoplasm of breast 329330813 Completed 11/14/2018 Marcelo Griffin Jr. MD [address] [place] [address], [address] , [facility] 9 09:00:41 Bronchit is 48259902 Completed 03/19/2020 Marcelo Griffin Jr. MD [address] [place] [address], [address] , [facility] 0 05:25:59 Disorder of skeletal system 83713834 Completed 08/05/2013 Not Available [facility] 3 02:01:38 Bipolar disorder 38938311 Active LEATHA MCKEON NP [address] [place] [address], [address] , [facility] 5 21:54:05 Contusio n of toe 34914939 Completed 02/14/2011 Not Available [facility] 3 03:07:13 Inflamma tory polyarth ropathy 931182000 Active Not Available [facility] 0 19:33:05 Alcohol dependen ce 02140333 Completed 11/15/2018 Marcelo Griffin Jr. MD [address] [place] [address], [address] , [facility] 9 04:38:12 Joint pain in ankle and foot Completed 02/14/2011 Not Available [facility] 3 03:07:13 Dysfunct ional uterine bleeding Completed 200010/22/2008 Not Available [facility] 3 03:07:13 Anemia 196496115 Completed 200002/14/2011 Not Available [facility] 3 03:07:13 Chest swelling 283277345 Completed 200010/22/2008 Not Available [facility] 3 03:07:13 Difficul ty speaking Completed 200010/22/2008 Not Available [facility] 3 03:07:13 Acute cystitis 96985079 Completed 200010/22/2008 Not Available [facility] 3 03:07:13 Intramur al leiomyom a of uterus 67921015 Completed 200102/14/2011 Not Available [facility] 3 03:07:13 Glycosur ia 65392471 Completed 200210/22/2008 Not Available [facility] 3 03:07:13 Malaise and fatigue 946235607 Completed 200210/22/2008 Not Available [facility] 3 03:07:13 Irregula r intermen strual bleeding 53727140 Completed 200210/22/2008 Not Available [facility] 3 03:07:13 Major depressi on, melancho lic type 114734553 Completed 200204/12/2015 Vira Buchanan MD [address] [place] [address], [address] , [facility] 5 16:06:13 Menopaus al symptom 06064371 Completed 200210/22/2008 Not Available [facility] 3 03:07:13 Low back pain 082815346 Completed 200204/12/2015 Marcelo Griffin Jr. MD [address] [place] [address], [address] , [facility] 0 05:26:09 Abnormal weight loss 605837665 Completed 200210/22/2008 Not Available [facility] 3 03:07:13 Presbyop ia 18557396 Completed 200210/22/2008 Not Available [facility] 3 03:07:13 Myopia 83877449 Completed 200210/22/2008 Not Available [facility] 3 03:07:13 Backache 249889734 Completed 200302/14/2011 Not Available [facility] 3 03:07:13 Toxic effect of venom 47738262 Completed 200310/22/2008 Not Available [facility] 3 03:07:13 Nonvenom ous insect bite of multiple sites 298131214 Completed 200310/22/2008 Not Available [facility] 3 03:07:13 Neck pain 51589022 Completed 200302/14/2011 Not Available [facility] 3 03:07:13 Vaginiti s and vulvovag initis Completed 200310/22/2008 Not Available [facility] 3 03:07:13 Increase d frequenc y of urinatio n 409947733 Completed 200410/22/2008 Not Available [facility] 3 03:07:13 Retentio n of urine 635097798 Completed 200410/22/2008 Not Available [facility] 3 03:07:13 Knee pain Completed 200410/22/2008 Not Available [facility] 3 03:07:13 Generali zed osteoart hritis 593334263 Active 2004 Not Available [facility] 0 19:33:05 Pain of hip region 84790531 Completed 200410/22/2008 Not Available [facility] 3 03:07:13 Non-orga reta sleep disorder 468538705 Completed 200410/22/2008 Not Available [facility] 3 03:07:13 Enthesop athy of hip region 61797401 Completed 200410/22/2008 Not Available [facility] 3 03:07:13 Disorder of lower respirat ory system 771393432 Completed 200510/22/2008 Not Available [facility] 3 03:07:13 Common cold 54012316 Completed 200510/22/2008 Not Available [facility] 3 03:07:13 Acute bronchit is 80697517 Completed 200510/22/2008 Not Available [facility] 3 03:07:13 Pyelonep hritis 68362316 Completed 200510/22/2008 Not Available [facility] 3 03:07:13 Tobacco user 987037139 Completed 200511/15/2018 Marcelo Griffin Jr. MD [address] [place] [address], [address] , [facility] 9 04:44:13 Inflamed seborrhe ic keratosi s 440589654 Completed 200510/22/2008 Not Available [facility] 3 03:07:13 Dysfunct ion of eustachi an tube 87710359 Completed 200510/22/2008 Not Available [facility] 3 03:07:13 Cough 16690693 Completed 200610/22/2008 Not Available [facility] 3 03:07:13 Neoplasm of uncertai n behavior of skin 25500090 Completed 200610/22/2008 Not Available [facility] 3 03:07:13 Insomnia 661972416 Active 2006 Not Available [facility] 0 19:33:05 Pain of joint 44996495 Completed 200610/22/2008 Not Available [facility] 3 03:07:13 Arthropa thy 753285110 Completed 200610/22/2008 Not Available [facility] 3 03:07:13 Inflamma tory polyarth ropathy 143435531 Completed 200610/22/2008 Not Available [facility] 3 03:07:13 Osteoart hritis of knee 483748540 Completed 200710/22/2008 Not Available [facility] 3 03:07:13 Simple chronic bronchit is 58053357 Completed 200710/22/2008 Not Available [facility] 3 03:07:13 Hypo-osm olality and or hyponatr emia 970819682 Completed 200710/22/2008 Not Available [facility] 3 03:07:13 Pain of multiple joints 79299819 Completed 200710/22/2008 Not Available [facility] 3 03:07:13 Radiolog y result abnormal 399258367 Completed 200710/22/2008 Not Available [facility] 3 03:07:13 Headache 43278241 Completed 200712/29/2010 Not Available [facility] 3 03:07:13 Imaging finding 085956677 Completed 200710/22/2008 Not Available [facility] 3 03:07:13 Derangem ent of knee 52200617 Completed 200710/22/2008 Not Available [facility] 3 03:07:13 Benign essentia l hyperten damian 4726054 Completed 200705/10/2011 LEATHA MCKEON NP [address] [place], [address] , [facility] 5 21:54:36 Pure hypercho lesterol emia 405729160 Completed 200710/22/2008 Not Available [facility] 3 03:07:13 Pain in limb 65091788 Completed 200710/22/2008 Not Available [facility] 3 03:07:13 Hyperlip idemia 33441471 Completed 200802/14/2011 Not Available [facility] 3 03:07:13 Sprain of ankle 26954475 Completed 200810/22/2008 Not Available [facility] 3 03:07:13 Elevated blood-pr essure reading without diagnosi s of hyperten damian 697620445 Completed 200802/14/2011 Not Available [facility] 3 03:07:13 Low back pain 730977901 Completed 201703/19/2020 Marcelo Griffin Jr. MD [address] [place] [address], [address] , [facility] 0 05:26:09 Spasm of back muscles 593097790 Completed 201711/15/2018 Marcelo Griffin Jr. MD [address] [place] [address], [address] , [facility] 9 04:39:18 Chronic alcoholi sm in [facility] n 328085058 Active 2018 Not Available [facility] 0 19:33:05 Chronic obstruct adebayo pulmonar y disease 14330411 Active 2018 LEATHA MCKEON NP [address] [place] [address], [address] , [facility] 5 21:54:05 Nicotine dependen 72269676 Completed 201803/19/2020 quit 09/2018 Removal Reason: quit smoking LEATHA MCKEON NP [address] [place], [address] , [facility] 5 13:01:38 Anxiety disorder 563712406 Active 2018 Not Available [facility] 0 19:33:05 Nicotine dependen ce 28380784 Completed 202003/09/2025 quit 09/2018 Removal Reason: Quit 2019 LEATHA MCKEON NP [address] [place], [address] , [facility] 5 13:01:38 Benign essentia l hyperten damian 2245406 Active 2023 B/P goal <130/80 LEATHA MCKEON NP [address] [place], [address] , [facility] 21:54:36 Ex-smoke r 9284641 Active 2024 Quit 2019 LEATHA MCKEON NP [address] [place], [address] , [facility] 13:01:58 Problem Notes None recorded. Procedures Surgical History Date Name Laterality Status Provider Name and Address Organization Details Recorded Time 03/09/20 25 Post hospital/SNF follow-up/Transiti onal Care completed LEATHA MCKEON NP [address] [place], [address], [facility] 03/09/2025 11:16:40 06/18/20 23 Medicare Wellness Visit completed Rosario Bynum [facility] 06/17/2023 13:19:54 06/18/20 23 Cardiovascular disease risk reduction counseling completed Marcelo Griffin Jr. MD [address] [place], [address], [facility] 06/19/2023 07:44:41 06/12/20 22 Medicare Wellness Visit completed Ruthie Hartman [facility] 06/11/2022 14:13:02 06/12/20 22 Alcohol use screening completed Ruthie Hartman [facility] 06/11/2022 14:13:02 06/12/20 22 Cardiovascular disease risk reduction counseling completed Ruthie Hartman [facility] 06/11/2022 14:13:02 06/12/20 22 Medicare Annual Wellness Visit completed Ruthie Hartman [facility] 06/12/2022 08:26:14 05/31/20 21 Medicare Wellness Visit completed Ruthie Hartman [facility] 05/30/2021 10:11:35 05/31/20 21 Alcohol use screening completed Ruthie Hartman [facility] 05/30/2021 10:11:36 05/31/20 21 Medicare Annual Wellness Visit completed Ruthie Hartman [facility] 05/30/2021 10:12:11 05/31/20 21 Medicare Risk for Falls Screen completed Ruthie Hartman [facility] 05/30/2021 10:12:17 12/31/19 20 Smoking cessation counseling completed Marcelo Griffin Jr. MD [address] [place] [address], [address], [facility] 12/31/2019 09:21:46 10/22/19 20 US Guided Knee Joint Injection completed Duke Dutta MD [address] [place] [address], [address], [facility] 10/22/2019 09:28:52 07/24/20 19 Supartz Injection completed Dmitri Hartman MD [address] [place] [address], [address], [facility] 07/24/2019 10:30:31 07/14/20 19 Supartz Injection completed Dmitri Hartman MD [address] [place] [address], [address], [facility] 07/14/2019 13:50:35 07/07/20 19 Supartz Injection completed Dmitri Hartman MD [address] [place] [address], [address], [facility] 07/07/2019 18:13:42 05/21/20 19 US Guided Knee Joint Injection completed Duke Dutta MD [address] [place] [address], [address], [facility] 05/21/2019 13:58:20 02/19/20 19 Post hospital/SNF follow-up/Transiti onal Care completed Kim Vasquez [facility] 02/18/2019 09:09:05 11/28/19 19 Knee (Left) Injection completed Dmitri Hartman MD [address] [place] [address], [address], [facility] 11/27/2018 09:05:50 11/15/19 19 Smoking cessation counseling completed Marcelo Griffin Jr. MD [address] [place] [address], [address], [facility] 11/15/2018 04:40:51 11/15/19 19 Medicare Wellness Visit completed Jenny Benavidez LPN [facility] 11/14/2018 08:28:27 08/14/20 18 US Guided Knee Joint Injection completed Duke Dutta MD [address] [place] [address], [address], [facility] 08/14/2018 09:55:14 08/11/20 18 Smoking cessation counseling completed Naomi Wilson MA [facility] 08/11/2018 07:30:57 08/04/20 18 Smoking cessation counseling completed Jenny Benavidez LPN [facility] 08/04/2018 08:06:35 08/04/20 18 Aspiration Major Joint/Bursa completed Marcelo Griffin Jr. MD [address] [place] [address], [address], [facility] 08/05/2018 03:44:55 07/17/20 18 Smoking cessation counseling completed Alanna [facility] 07/17/2018 09:06:12 07/17/20 18 POC Urinalysis Testing completed Alanna [facility] 07/17/2018 09:05:46 05/29/20 18 Smoking cessation counseling completed Aby Jenkins LPN [facility] 05/29/2018 07:56:26 05/29/20 18 Knee (Left) Injection completed Dmitri Hartman MD [address] [place] [address], [address], [facility] 05/29/2018 17:20:51 01/15/20 18 Smoking cessation counseling completed Ruba Whitehead MD [address] [place] [address], [address], [facility] 01/15/2018 14:59:55 12/12/19 18 28673: Therapeutic Exercise completed Kip Hatfield, PT [address] [place], [address], [facility] 12/12/2017 16:02:30 11/29/19 18 Smoking cessation counseling completed Aby Jenkins LPN [facility] 11/28/2017 08:15:13 11/20/19 18 Smoking cessation counseling completed Linsey Arenas MA [facility] 11/19/2017 07:52:35 11/20/19 18 US Guided Knee Joint Injection completed Duke Dutta MD [address] [place] [address], [address], [facility] 11/19/2017 08:39:55 11/20/19 18 Pes Bursa Injection completed Duke Dutta MD [address] [place], [address], [facility] 11/19/2017 08:40:13 11/13/19 18 Smoking cessation counseling completed Ophelia Calixto LPN [facility] 11/13/2017 09:32:00 11/12/19 18 09182: Therapeutic Exercise completed Kip Hatfield, PT [address] [place], [address], [facility] 11/12/2017 10:20:47 11/12/19 18 80403: Ultrasound (1:1) completed Kip Hatfield, PT [address] [place], [address], [facility] 11/12/2017 10:21:04 11/08/19 18 26245: Manual Therapy completed Kip Hatfield, PT [address] [place], [address], [facility] 11/10/2017 19:07:38 11/08/19 18 35516: Ultrasound (1:1) completed Kip Hatfield, PT [address] [place], [address], [facility] 11/10/2017 19:08:42 11/04/19 18 18130: Therapeutic Exercise completed Kip Hatfield, PT [address] [place], [address], [facility] 11/04/2017 12:35:39 11/04/19 18 87165: Ultrasound (1:1) completed Kip Hatfield, PT [address] [place], [address], [facility] 11/04/2017 12:35:34 10/30/19 18 Smoking Cessation Counselling completed Kip Hatfield, PT [address] [place], [address], [facility] 10/30/2017 09:04:01 10/30/19 18 Physical Activity Counselling completed Kip Hatfield, PT [address] [place], [address], [facility] 10/30/2017 09:03:49 10/30/19 18 50403: PT Eval, Moderate Complexity completed Kip Hatfield PT [address] [place], [address], [facility] 10/30/2017 09:03:55 09/24/19 18 Smoking cessation counseling completed Linsey Arenas MA [facility] 09/24/2017 07:50:52 06/28/20 17 Smoking cessation counseling completed Ophelia Calixto LPN [facility] 06/28/2017 14:21:26 06/28/20 17 POC Urinalysis Testing completed Ophelia Calixto [employer] [facility] 06/28/2017 13:58:21 06/14/20 17 Smoking cessation counseling completed Aby Jenkins [facility] 06/14/2017 09:53:42 06/14/20 17 Generic Procedure Template completed Dmitri Hartman MD [address] [place] [address], [address], [facility] 06/14/2017 14:03:46 04/11/20 17 28670: Therapeutic Exercise completed Gail Frausto [address] [place] [address], [address], [facility] 04/11/2017 19:00:50 04/11/20 17 68733: Manual Therapy completed Gailda Frausto [address] [place] [address], [address], [facility] 04/11/2017 19:00:56 04/11/20 17 44651: Ultrasound (1:1) completed Gailda Frausto [address] [place] [address], [address], [facility] 04/11/2017 19:00:43 04/04/20 17 81950: Therapeutic Exercise completed Gail Frausto [address] [place] [address], [address], [facility] 04/04/2017 09:34:05 04/04/20 17 99818: Manual Therapy completed Gailda Frausto [address] [place] [address], [address], [facility] 04/04/2017 09:34:08 04/04/20 17 07667: Ultrasound (1:1) completed Gailda Frausto [address] [place] [address], [address], [facility] 04/04/2017 09:34:03 02/27/20 17 Smoking Cessation Counselling [place], [address], [facility] 02/26/2017 11:50:48 02/27/20 17 Physical Activity Counselling [place], [address], [facility] 02/26/2017 11:50:45 02/27/20 17 72619: PT Eval Low Complexity completed Marilee Calixto [address] [place] [address], [address], [facility] 02/26/2017 11:51:07 02/06/20 17 Smoking cessation counseling completed Duke Dutta MD [address] [place] [address], [address], [facility] 02/05/2017 14:05:19 12/06/19 17 Smoking Cessation Counselling completed Marilee Calixto [address] [place] [address], [address], [facility] 12/05/2016 11:49:12 12/06/19 17 Physical Activity Counselling completed Marilee De Luna [address] [place] [address], [address], [facility] 12/05/2016 11:49:08 12/06/19 17 55374: PT Eval, Moderate Complexity [place], [address], [facility] 12/05/2016 11:49:20 11/12/19 17 Smoking cessation counseling completed Ophelia Calixto LPN [facility] 11/12/2016 10:33:02 11/12/19 17 Carbon Monoxide Testing completed Ophelia Calixto LPN [facility] 11/12/2016 10:48:59 11/12/19 17 Corticosteroid Injection completed Kip Paul MD [address] [place] [address], [address], [facility] 11/12/2016 16:08:44 10/16/19 17 Smoking cessation counseling completed Dmitri Hartman MD [address] [place] [address], [address], [facility] 10/16/2016 10:46:31 07/30/20 16 Carbon Monoxide Testing completed Alena Ndiaye RN [facility] 07/30/2016 09:09:27 04/20/20 13 Smoking cessation counseling completed Ophelia Calixto LPN [facility] 04/20/2013 09:38:18 04/02/20 12 Smoking cessation counseling completed Kip Paul MD [address] [place] [address], [address], [facility] 04/02/2012 14:42:51 12/29/19 09 Colonoscopy completed Kip Paul MD [address] [place] [address], [address], [facility] 04/30/2014 09:22:56 11/01/19 09 Vision Screening completed Mario Marion MA [facility] 11/01/2008 09:13:21 12/23/19 04 Colonoscopy completed Not Available Counts include 234 beds at the [facility] 08/02/2011 06:05:52 09/16/19 01 Lung Surgery completed Not Available Counts include 234 beds at the [facility] 08/02/2011 06:05:52 09/16/18 58 Tonsillectomy completed Not Available Counts include 234 beds at the [facility] 08/02/2011 06:05:52 Imaging Results None recorded. Procedure Notes None recorded. Medical Equipment None Reported. Allergies Allergen ID Allergen Name Allergen Category Reaction Reaction Severity Criticality Documentation Date Start Date Code Code System Note Provider Name and Address Organization Details Recorded Time 666501 Levaquin medicatio n Not available Not available Not available 12/09/2020 55126 2 RxNorm pain/ stiff ness bilat calve s 48hr s/p abx Rowan Steven NP [address] [place] [address] [place], [address], [facility] 09:19:40 2487 meloxicam medicatio n nausea vomiting Not available Not available Not available 11/01/2008 24501 RxNorm Nause a Not Available [facility] 06:05:20 2488 Iodinated contrast media (substanc e) medicatio n anaphylax is Not available Not available 11/01/2008 35109 2004 SNOMED Acute Anaph ylati c Shock Not Available [facility] 06:05:41 959789 lisinopri l medicatio n cough Not available low 06/16/2024 83834 RxNorm Marcelo Griffin Jr. MD [address] [place] [address], [place], [address] [place] [address] 4 08:32:51 903092 ciproflox acin medicatio n Not available Not available Not available 01/29/2025 2551 RxNorm achil les radha ess Esthela rivas RN [facility], [facility] 5 07:35:11 Medications Name Sig Start Date Stop Date Status Note LastModified by Organization Details LastModified Time carisopro dol 350 mg tablet TAKE 1 TABLET BY MOUTH 3 TIMES A DAY NEEDED FOR MUSCLE SPASM 11/17 completed Not Available Not Available Not Available quetiapin e 25 mg tablet Take 1 tablet every day by oral route. 06/16 completed 12.5mg currentl y Not Available Not Available Not Available celecoxib 200 mg capsule TAKE 1 CAPSULE BY MOUTH EVERY DAY active Not Available Not Available No t Available amoxicill in 500 mg capsule TAKE 1 CAPSULE BY MOUTH 4 TIMES A DAY FOR 7 DAYS 04/18 completed Not Available Not Available Not Available Qvar 80 mcg/actua tion Metered Aerosol oral inhaler INHALE 2 PUFF(S) TWICE A DAY BY INHALATI ON ROUTE. 06/17 completed Not Available Not Available Not Available bupropion HCl SR 150 mg tablet,12 hr sustained -release TAKE 1 TABLET BY MOUTH TWICE A DAY 04/20 completed Not Available Not Available Not Available doxycycli ne hyclate 100 mg capsule TAKE 1 CAPSULE BY MOUTH TWICE A DAY FOR 10 DAYS 11/14 completed Not Available Not Available Not Available cefuroxim e axetil 250 mg tablet TAKE 1 TABLET BY MOUTH TWICE A DAY FOR 5 DAYS 04/19 completed Not Available Not Available Not Available sulfasala zine 500 mg tablet Take 2 tablets 2 times a day by oral route. 2010 active Not Available Not Available Not Avai lable Daily Vitamin tablet 04/20 completed Take 1.00 tabs daily Not Available Not Available Not Available trazodone 50 mg tablet TAKE 2-3 TABLETS BY MOUTH EVERY DAY AT BEDTIME NEEDED FOR INSOMNIA active Not Available Not Available No t Available cefpodoxi me 200 mg tablet Take 1 tablet every 12 hours by oral route for 3 days. 03/09 completed per [facility] discharg e 02/23/25. Patient declined medicati on reconcil iation 02/25/25. Not Available Not Available Not Available azithromy nikole 250 mg tablet TAKE 2 TABLETS BY MOUTH TODAY, THEN TAKE 1 TABLET DAILY FOR 4 DAYS 06/17 completed Not Available Not Available Not Available fosfomyci n trometham ine 3 gram oral packet Mix contents of packet with 4 oz (120 mL) of cool water before ingestin g one dose 03/09 completed Not Available Not Available Not Available ibuprofen 800 mg tablet TAKE 1 TABLET BY MOUTH 3 TIMES A DAY FOR SWELLING 04/01 completed Not Available Not Available Not Available alprazola m 1 mg tablet TAKE 1/2 TO 1 TABLET BY MOUTH 2 TIMES A DAY NEEDED FOR ANXIETY FOR 3 MONTHS, MAX DAILY DOSE: 2MG active Not Available Not Available No t Available Vicodin 5 mg-500 mg tablet 1 po q hs 04/20 completed Not Available Not Available Not Available clarithro mycin 500 mg tablet Take 1 tablet every 12 hours by oral route. 2011 active Not Available Not Available Not Avai lable hydrocodo ne 5 mg-acetam inophen 325 mg tablet TAKE 1 TABLET BY MOUTH ONCE A DAY NEEDED AT BEDTIME 2024 active Not Available Not Available Not Avai lable lisinopri l 20 mg tablet TAKE 1 TABLET BY MOUTH EVERY DAY active Not Available Not Available No t Available prednison e 20 mg tablet Take 2 tablets every day by oral route for 5 days. 07/18 completed Not Available Not Available Not Available doxycycli ne hyclate 50 mg capsule TAKE ONE CAPSULE TWICE DAILY UNTIL CLEAR. TAKE WITH FOOD. 10/14 completed Not Available Not Available Not Available prednison e 5 mg tablet Take 3 tablets every day by oral route. 2009 active Not Available Not Available Not Avai lable metronida zole 500 mg tablet 1 TABLET BY MOUTH EVERY 12 HOURS FOR 7 DAYS 11/27 completed Not Available Not Available Not Available amlodipin e 5 mg tablet TAKE 1 TABLET BY MOUTH EVERY DAY 07/22 completed Not Available Not Available Not Available trimethop rim 100 mg tablet TAKE 1 TABLET BY MOUTH EVERYDAY AT BEDTIME active Not Available Not Available No t Available ciproflox acin 500 mg tablet TAKE 1 TABLET BY MOUTH EVERY 12 HOURS FOR 7 DAYS 11/27 completed Not Available Not Available Not Available sulfameth oxazole 800 mg-trimet hoprim 160 mg tablet TAKE 1 TABLET BY MOUTH TWICE A DAY 09/07 completed Not Available Not Available Not Available amoxicill in 500 mg tablet TAKE 1 TABLET BY MOUTH EVERY 8 HOURS UNTIL FINISHED 03/09 completed using for dental infectio n Not Available Not Available Not Available Macrobid 100 mg capsule Take 1 capsule every 12 hours by oral route. 01/12 completed Not Available Not Available Not Available Azulfidin e EN-tabs 500 mg tablet,de layed release 3 po bid 2008 active Not Available Not Available Not Avai lable alprazola m 0.5 mg tablet TAKE 1 TABLET TWICE A DAY NEEDED 06/05 completed Not Available Not Available Not Available propoxyph jasmyn N-acetami nophen 100 mg-650 mg tablet TAKE 2 TABLETS BY MOUTH AT BEDTIME 2009 active Not Available Not Available Not Avai lable methenami ne hippurate 1 gram tablet TAKE 1 TABLET BY MOUTH TWICE A DAY WITH MEALS 09/07 completed Not Available Not Available Not Available amoxicill in 875 mg tablet TAKE 1 TABLET EVERY 12 HOURS 05/29 completed Not Available Not Available Not Available famotidin e 20 mg tablet TAKE 1 TABLET BY MOUTH EVERYDAY AT BEDTIME 10/19 completed Not Available Not Available Not Available temazepam 15 mg capsule TAKE 2 CAPSULES BY MOUTH EVERY DAY AT BEDTIME NEEDED FOR SLEEP active Not Available Not Available No t Available methotrex ate sodium 2.5 mg tablet 6 to 8 tabs po weekly as directed 2009 active never started this med. Not Available Not Available Not Available temazepam 30 mg capsule TAKE 1 CAPSULE BY MOUTH EVERY DAY AT BEDTIME 10/19 completed Not Available Not Available Not Available baclofen 10 mg tablet TAKE 1 TABLET BY MOUTH EVERY DAY AT BEDTIME NEEDED FOR BACK SPASM 10/19 completed Not Available Not Available Not Available amlodipin e 10 mg tablet TAKE 1 TABLET BY MOUTH EVERY DAY active Not Available Not Available No t Available Lamictal 25 mg tablet 11/14 completed 4 tabs AM Not Available Not Available Not Available cephalexi n 500 mg capsule TAKE 1 CAPSULE BY MOUTH TWICE DAILY FOR 7 DAYS WITH FOOD AND GLASS OF WATER. 10/14 completed Not Available Not Available Not Available mirtazapi ne 30 mg tablet TAKE 1 TABLET BY MOUTH EVERY DAY AT BEDTIME active Not Available Not Available No t Available lisinopri l 10 mg tablet TAKE 1 TABLET BY MOUTH EVERY DAY active Not Available Not Available No t Available sertralin e 25 mg tablet TAKE 1 TABLET BY MOUTH EVERY DAY 11/17 completed 10/14/20- not taking Not Available Not Available Not Available omeprazol e 20 mg capsule,d elayed release TAKE ONE CAPSULE BY MOUTH EVERY DAY 04/20 completed Not Available Not Available Not Available mirtazapi ne 15 mg tablet TAKE 1 & 1/2 TABLETS (22.5 MG) BY MOUTH DAILY AT BEDTIME 03/12 completed Not Available Not Available Not Available albuterol 90 mcg/actua tion aerosol inhaler Inhale 1 inhalati on every 4 hours by inhalati on route as needed. 03/09 completed per [facility] discharg e 02/23/25. Patient declined medicati on reconcil iation 02/25/25. Not Available Not Available Not Available dexametha sone sodium phosphate 4 mg/mL injection solution 3mL for 40-80ma* min at 1-4ma, to toleranc e. Dispense d from 20-30 mL multi-us e vial 02/05 completed Not Available Not Available Not Available estradiol 0.01% (0.1 mg/gram) vaginal cream PLACE 0.5 GRAM VAGINALL Y TWO TIMES PER WEEK. active Not Available Not Available No t Available levofloxa nikole 750 mg tablet 05/07 completed Not Available Not Available Not Available albuterol sulfate HFA 90 mcg/actua tion aerosol inhaler 2 INHALATI ON INHALATI ON 4 TIMES A DAY,X90 DAYS, NEEDED WHEEZING /SHORTNE SS OF BREATH active Not Available Not Available No t Available Cipro 250 mg tablet Take 1 tablet twice a day by oral route for 7 days. 01/29 completed Not Available Not Available Not Available ondansetr on 4 mg disintegr ating tablet DISSOLVE 1 TABLET UNDER THE TONGUE EVERY 4 HOURS NEEDED FOR NAUSEA active Not Available Not Available No t Available fluticaso ne propionat e 50 mcg/actua tion nasal spray,gato pension 2 SPRAYS EACH NOSTRIL TWICE A DAY 06/17 completed Not Available Not Available Not Available lamotrigi ne 100 mg tablet TAKE 1& 1/2 TABS IN AM AND 1 TAB AT BEDTIME active Not Available Not Available No t Available Depakote 500 mg tablet,de layed release 01/20 completed Take 1.00 tabs daily Not Available Not Available Not Available amoxicill in 875 mg-potass ium clavulana te 125 mg tablet TAKE 1 TABLET BY MOUTH TWICE A DAY FOR 10 DAYS 01/08 completed Not Available Not Available Not Available nabumeton e 500 mg tablet Take 1 tablet twice a day by oral route. 2010 active takes 1 tab QD Not Available Not Available Not Available duloxetin e 20 mg capsule,d elayed release TAKE ONE CAPSULE BY MOUTH AT BEDTIME 03/08 completed Not Available Not Available Not Available Flovent HFA 220 mcg/actua tion aerosol inhaler Inhale 2 puffs twice a day by inhalati on route. 04/13 completed Not Available Not Available Not Available Calcium for Women 500 mg-100 unit-40 mcg chewable tablet 04/20 completed Take 1.00 tabs daily Not Available Not Available Not Available chlorhexi dine gluconate 0.12 % mouthwash GENTLY RINSE WITH 15ML TWICE A DAY.DO NOT SWALLOW. 02/28 completed Not Available Not Available Not Available vitamin B complex active Not Available Not Available Not Available Fish Oil 2008 active 1 qd po Not Available Not Available Not Avai lable Vitamin D active 2,000 IU Not Available Not A vailable Not Available hydrocodo ne 5 mg-acetam inophen 300 mg tablet Take 1 tablet every day by oral route at bedtime. 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 02/28 completed Not Available Not Available Not Available GaviLyte- N 420 gram oral solution 02/18 completed Not Available Not Available Not Available Trimo-Caruso Jelly 0.025 %-0.01 % vaginal PLACE 1 APPLICAT OR VAGINALL Y 2 (TWO) TIMES A WEEK. 03/09 completed Not Available Not Available Not Available lurasidon e 40 mg tablet TAKE 1 TABLET BY MOUTH DAILY MUST ADMINIST ER WITH FOOD (AT LEAST 350 CALORIES ) active Not Available Not Available No t Available Latuda 80 mg tablet TAKE 1 TABLET BY MOUTH EVERY DAY WITH FOOD 10/19 completed taking 40mg 09/19/23 Not Available Not Available Not Available Latuda 20 mg tablet TAKE 1 TABLET BY MOUTH EVERY EVENING WITH FOOD 07/30 completed Not Available Not Available Not Available cefixime 400 mg capsule TAKE 1 CAPSULE BY MOUTH EVERY DAY 04/18 completed Not Available Not Available Not Available Breo Ellipta 100 mcg-25 mcg/dose powder for inhalatio n INHALE 1 DOSE BY MOUTH DAILY active Not Available Not Available No t Available Readi-Cat 2 2 % (w/v) oral suspensio n 12/07 completed Not Available Not Available Not Available Fluad Quad (65yr up)(PF) 60 mcg (15 mcg x 4)/0.5mL IM syringe PHARMACY ADMINIST ERED 08/18 completed Not Available Not Available Not Available Flowflex COVID-19 Antigen Home Test kit USE DIRECTED 08/28 completed Not Available Not Available Not Available Vitals Date Recorded Body height Oxygen saturation Oxygen saturation in Arterial blood by Pulse oximetry Heart rate Systolic And Diastolic Systolic And Diastolic Provider Name and Address Organization Details Last Updated DateTime 5 166.37 cm 99 % 99 % 88 /min 148/100 mm[Hg] 142/92 mm[Hg] Esthela rivas RN [place] - [facility] 11:04:03 Date Recorded Heart rate Systolic And Diastolic Provider Name and Address Organization Details Last Updated DateTime 01/12/2025 88 /min 132/82 mm[Hg] BHARATH Ren [address] [place] [address], [phone], [facility] 01/12/2025 09:42:42 Date Recorded Body height Body mass index (BMI) Body weight Heart rate Oxygen saturation Oxygen saturation in Arterial blood by Pulse oximetry Body temperature Systolic And Diastolic Provider Name and Address Organization Details Last Updated DateTime 166.37 cm 21.3 kg/m2 98773.7 1 g 102 /min 97 % 97 % 99.2 [degF] 142/80 mm[Hg] Norma Huang [facility] 09:31:46 Date Recorded Body height Heart rate Oxygen saturation Oxygen saturation in Arterial blood by Pulse oximetry Systolic And Diastolic Provider Name and Address Organization Details Last Updated DateTime 166.37 cm 110 /min 98 % 98 % 128/90 mm[Hg] Barbara Wiggins [facility] 13:36:30 Date Recorded Systolic And Diastolic Provider Name and Address Organization Details Last Updated DateTime 02/02/2025 128/82 mm[Hg] LEATHA MCKEON NP [address] [place] [address], [phone], [facility] 02/02/2025 08:20:46 Date Recorded Body height Oxygen saturation Oxygen saturation in Arterial blood by Pulse oximetry Heart rate Systolic And Diastolic Provider Name and Address Organization Details Last Updated DateTime 166.37 cm 99 % 99 % 73 /min 132/88 mm[Hg] Beena Adams [facility] 08:02:57 Date Recorded Oxygen saturation Oxygen saturation in Arterial blood by Pulse oximetry Heart rate Provider Name and Address Organization Details Last Updated DateTime 03/09/2025 95 % 95 % 90 /min LEATHA MCKEON NP [address] [place] [address], [phone], [facility] 03/09/2025 12:55:56 Date Recorded Body height Body mass index (BMI) Body weight Heart rate Oxygen saturation Oxygen saturation in Arterial blood by Pulse oximetry Systolic And Diastolic Provider Name and Address Organization Details Last Updated DateTime 166.37 cm 21.5 kg/m2 40630.3 g 104 /min 97 % 97 % 118/66 mm[Hg] Guillermina peck CMA [facility] 11:56:09 Date Recorded Systolic And Diastolic Provider Name and Address Organization Details Last Updated DateTime 03/09/2025 118/66 mm[Hg] Not Available [facility] 03/09/2025 12:29:55 Social History Question Answer Notes LastModified by Organizat ion Details LastModified Time Tobacco Smoking Status Former Smoker quit 2018 Rosario Bynum MA [facility] 06/18/2023 08:30:04 Do You Wear A Helmet When Biking? No Does Not Ride Information not available 06/18/2023 What Is Your Level Of Caffeine Consumption? Occasional 2-3 Cups Coffee Daily [email or web address] Information not available 05/31/2021 How Much Tobacco Do You Chew? None [email or web address] Information not available 08/02/2011 What Type Of Diet Are You Following? REGULAR [email or web address] Information not available 08/02/2011 Which Illicit Or Recreational Drugs Have You Used? None [email or web address] Information not available 08/02/2011 Education Post Graduate [email or web address] 09 117 Information not available 08/02/2011 Have There Been Any Changes To Your Family Or Social Situation? No Information not available 06/18/2023 How Many Days In The Past Year Have You Had A Heavy Drinking Consumption (4+ Female, 5+ Male)? 0 11/12/16 [email or web address] Information not available 04/30/2014 Are There Any Guns Present In Your Home? No Information not available 06/18/2023 Do You Use Insect Repellent Routinely? Yes Information not available 05/31/2021 Live Alone Or With Others? Alone [email or web address] Information not available 08/02/2011 Patient Has Health Care Proxy Signed And In Chart No Dalia mendoza [email or web address] Information not available 08/04/2018 CCM Consent Discussion 06/18/2023 [email or web address] Information not available 06/21/2023 Marital Status Single [email or web address] 11 [email or web address] Information not available 08/02/2011 Mosquito Repellent Used Routinely Yes Information not available 04/20/2013 What Was The Date Of Your Most Recent Tobacco Screening? 06/18/2023 Information not available 06/18/2023 How Many Children Do You Have? 1 [email or web address] Information not available 08/02/2011 What Is Your Current Pack Years? [email or web address] ars Started Age 13 [email or web address] Information not available 04/12/2015 What Is Your Relationship Status? Single Information not available 06/18/2023 Do You Use Your Seat Belt Or Car Seat Routinely? Yes [email or web address] Information not available 05/31/2021 Seat Belts Used Routinely Yes [email or web address] Information not available 08/02/2011 Are You Sexually Active? No [email or web address] Information not available 04/30/2014 Smoke Alarm In Home Yes [email or web address] Information not available 08/02/2011 Do You Have Smoke And Carbon Monoxide Detectors In Your Home? Yes [email or web address] Information not available 05/31/2021 At What Age Did You Start Smoking Tobacco? 13 [email or web address] Information not available 08/02/2011 Are You Passively Exposed To Smoke? No [email or web address] Information not available 05/31/2021 How Much Tobacco Do You Smoke? No [email or web address] Information not available 03/14/2020 General Stress Level Low [email or web address] Information not available 11/12/2016 Do You Use Sunscreen Routinely? Yes [email or web address] Information not available 08/02/2011 How Many Years Have You Smoked Tobacco? 0 [email or web address] Information not available 03/14/2020 Sex: Unknown Functional Status Question Answer Note LastModified by Organizat ion Details LastModified Time What is your level of alcohol consumption? None in recovery [email or web address] Information not available 11/01/2008 Do you or have you ever used smokeless tobacco? Never used smokeless tobacco [email or web address] Information not available 03/14/2020 Are you currently employed? 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 Never used electronic cigarettes [email or web address] Information not available 03/14/2020 What is your exercise level? Moderate Information not available 06/18/2023 Mental Status None recorded. Family History Relationship Description Onset Age of this Age Resolved Age Notes LastModified by Organization Details LastModified Time Father Depressive disorder 39 suicid e Not available 12/23/2014 09:03:41 Daughter Crohn's disease Not available 2014 09:03:41 Mother Mental disorder bipola r Not available 12/23/2014 09:03:41 Mother Malignant tumor of colon 83 found at [facility] Not available 12/23/2014 09:03:41 Mother Osteoporosis Not availa ble 12/23/2014 09:03:41 Maternal Grandmother Malignant neoplastic disease unknow n type, 50s Not available 12/23/2014 09:03:41 Medical History Condition Response Rheumatoid Arthritis Y RESPIRATORY Bipolar Disorder Y GASTROINTESTINAL Depression Y Colon Polyps Y Gynecological HistoryNo gynecological history recorded. Obstetrics History GPAL:G 0 P 0 0 0 0 Immunizations Vaccine Type Date Status Note Provider Nam e and Address Organization Details Recorded Time influenza, unspecified formulation 1 completed Not Available [facility] 08/01/2011 05:20:34 influenza, unspecified formulation 2 completed Not Available [facility] 08/01/2011 05:20:34 influenza, unspecified formulation 3 completed Not Available [facility] 08/01/2011 05:21:07 Influenza, split virus, trivalent, preservative 1 completed Not Available [facility] 10/03/2019 02:18:14 influenza, unspecified formulation 5 completed Not Available [facility] 08/01/2011 05:21:07 Td(adult) unspecified formulation 1 completed Not Available [facility] 08/01/2011 05:21:07 influenza, unspecified formulation 5 completed Not Available [facility] 08/01/2011 05:21:29 influenza, unspecified formulation 7 completed Not Available [facility] 08/01/2011 05:23:04 influenza, unspecified formulation 8 completed Not Available Counts include 234 beds at the [facility] 08/01/2011 05:22:13 Influenza, split virus, trivalent, PF 2 completed Not Available [facility] 10/03/2019 02:30:29 pneumococcal polysaccharide PPV23 4 completed Not Available [facility] 08/01/2011 05:22:26 Influenza, split virus, trivalent, preservative 9 completed Not Available Counts include 234 beds at the [facility] 10/03/2019 02:17:25 Influenza, split virus, trivalent, PF 3 completed Not Available [facility] 10/03/2019 02:19:00 zoster live 4 completed Not Available [facility] 10/03/2019 02:16:36 Influenza, split virus, trivalent, PF 4 completed Not Available [facility] 10/03/2019 02:19:22 Influenza, split virus, quadrivalent, PF 5 completed Not Available Counts include 234 beds at the [facility] 10/03/2019 02:19:48 Influenza, split virus, quadrivalent, PF 6 completed Not Available [facility] 10/03/2019 02:21:03 Influenza, split virus, quadrivalent, PF 7 completed Not Available [facility] 10/03/2019 02:22:05 Influenza, split virus, quadrivalent, PF 8 completed Not Available Counts include 234 beds at the [facility] 10/03/2019 02:36:29 Pneumococcal conjugate PCV 13 9 completed Not Available Counts include 234 beds at the [facility] 10/03/2019 02:28:44 Influenza, split virus, quadrivalent, preservative 9 completed REE Mcpherson, [facility] 07/07/2019 16:08:39 pneumococcal polysaccharide PPV23 1 completed REE Borrero, [facility] 05/31/2021 09:30:55 Influenza, high-dose, quadrivalent, PF 2 completed Marcelo Griffin Jr. MD [address] [place] [address], [phone], [facility] 06/14/2022 05:29:02 Influenza, split virus, trivalent, preservative 0 completed Not Available Counts include 234 beds at the [facility] 10/03/2019 02:26:40 COVID-19, mRNA, LNP-S, PF, 30 mcg/0.3 mL dose 1 completed [facility]/28[facility] 08:01:24 Tdap 1 completed [facility] 03/02/2021 08:59:28 Influenza, high-dose, quadrivalent, PF 3 completed Marcelo Griffin Jr. MD [address] [place] [address], [phone], [facility] 06/19/2023 07:40:22 COVID-19, mRNA, LNP-S, PF, 30 mcg/0.3 mL dose 1 completed [facility] 04/18/2021 13:51:07 Influenza, high-dose, trivalent, PF 4 completed Marcelo Griffin Jr. MD [address] [place] [address], [phone], [facility] 06/16/2024 08:29:54 COVID-19, mRNA, LNP-S, PF, 30 mcg/0.3 mL dose 1 completed [facility] 07/17/2021 08:16:59 COVID-19, mRNA, LNP-S, PF, 30 mcg/0.3 mL dose 2 completed [facility] 01/11/2022 09:37:55 Influenza, split virus, quadrivalent, preservative 1 completed [facility] 04/01/2022 09:16:02 zoster recombinant 3 completed [facility] 05/14/2023 12:05:49 Tdap 1 completed Not Available Counts include 234 beds at the [facility] 10/03/2019 02:15:39 Past Encounters Encounter ID Performer Location Encounter Start Date Encounter Closed Date Diagnosis/Indication Diagnosis SNOMED-CT Code Diagnosis ICD10 Code Diagnosis Note [id number] Kpi Paul MD , [facility], OFFICE [address] [facility] [place], [place] [address] 11/25/2000 14:45:00 10/06/2008 02:02:29 [id number] Kip Paul MD , [facility], OFFICE [address] [facility] Edha serrano, [place] [address] 01/23/2001 15:15:00 10/06/2008 02:02:29 [id number] Kip Paul MD , [facility], [facility] [address] [place], [place] [address] 03/20/2001 00:00:00 10/06/2008 02:02:29 [id number] Mason Bojorquez NP , [facility], OFFICE [address] [facility] Ed[place] s[place], [place] [address] 04/03/2001 15:30:00 10/06/2008 02:02:29 [id number] [facility] FLU CLINIC , [facility], OFFICE [address] [facility] Eve[place]tha [place], [place] [address] 09/01/2001 14:40:00 10/06/2008 02:02:29 [id number] [facility] , [address] [address] 01/02/2002 09:45:00 10/06/2008 02:02:29 [id number] [facility] FLU CLINIC , [facility], OFFICE [address] [facility] Jessy s[place]ano, [place] [address] 07/13/2002 07:30:59 10/06/2008 02:02:29 [id number] Gail Samuels PA-C , [facility], OFFICE [address] [facility] Eve[place], [place] [address] 10/20/2002 13:02:36 10/06/2008 02:02:29 [id number] [facility] LAB LAB - [facility] [address] [facility] JESSY [place], [place] [address] 10/22/2002 15:28:20 10/06/2008 02:02:29 [id number] Gail Samuels PA-C , [facility], OFFICE [address] [facility] Everettha serrano, [place] [address] 06/17/2003 13:12:03 06/17/2003 17:49:48 [id number] [facility] FLU CLINIC FP, [facility], OFFICE [address] [place] [address] 06/29/2003 07:20:49 06/29/2003 13:20:01 [id number] EWA Lucio, [facility], OFFICE [address] [place] [address] 07/30/2003 08:28:34 07/30/2003 10:01:12 [id number] [facility] - [address] [place] [address] 08/03/2003 07:00:34 08/03/2003 17:13:31 [id number] Jesus Betancourt, [facility], [place] [address] [place] [address] 2003 13:03:29 2003 14:39:03 [id number] [facility] BONE DENSITY [facility] , [address] [place] [address] 2003 14:01:36 2003 17:24:39 [id number] Mason Bojorquez NP , [facility], OFFICE [address] [place] [address] 04/26/2004 15:27:35 04/27/2004 06:55:22 [id number] [facility] - [facility] [place] [address] 04/26/2004 16:24:44 04/27/2004 08:27:44 [id number] [facility] RADIOLOGY [facility] , [place] [address] [place] [address] 04/26/2004 16:24:10 10/06/2008 02:02:29 [id number] [facility], [place] [address] [place] [address] 05/03/2004 07:45:54 05/03/2004 13:26:30 [id number] [facility], [place] [address] [place] [address] 1 05/08/2004 07:26:38 05/09/2004 07:06:53 [id number] [facility], [facility] [place] [address] 1 05/10/2004 07:22:37 05/11/2004 07:09:43 [id number] [facility], [facility] [place] [address] 1 05/16/2004 07:54:10 05/17/2004 07:26:18 [id number] [facility], [facility] [place] [address] 1 05/30/2004 16:43:54 05/31/2004 07:28:10 [id number] [facility], [facility] [place] [address] 1 06/05/2004 16:21:29 06/06/2004 07:19:26 [id number] [facility], [facility] [place] [address] 1 06/07/2004 16:16:01 06/08/2004 17:13:42 [id number] [facility], [facility] [place] [address] 1 06/12/2004 16:18:16 06/13/2004 07:22:11 [id number] [facility], [facility] [place] [address] 1 06/15/2004 16:43:15 06/16/2004 07:11:49 [id number] [facility], [facility] [place] [address] 1 06/22/2004 16:21:51 06/26/2004 07:14:58 [id number] [facility], [facility] [place] [address] 1 06/27/2004 16:21:13 06/28/2004 07:23:41 [id number] ARACELI Salazar, [facility], [address] [place] [address] 1 08/03/2004 10:34:38 08/03/2004 12:49:29 [id number] Mason Bojorquez NP FP, [facility], [address] [place] [address] 1 10/06/2004 08:26:42 10/06/2004 13:24:43 [id number] Gail Samuels PA-C , [facility], [address] [place] [address] 1 12/19/2004 11:13:44 12/19/2004 14:34:49 [id number] Mason Bojorquez NP , [facility], [address] [place] [address] 1 03/02/2005 08:01:22 03/02/2005 12:08:19 [id number] [facility] RADIOLOGY [facility] , [facility] [address] [place] [address] 1 03/02/2005 08:52:52 03/02/2005 17:06:14 [id number] Mason Bojorquez NP , [facility], [address] [place] [address] 1 04/06/2005 10:15:29 04/06/2005 15:49:31 [id number] [facility], [facility] [place] [address] 1 04/11/2005 07:50:08 04/12/2005 13:01:38 [id number] [facility], [facility] [place] [address] 1 04/16/2005 15:46:12 04/17/2005 06:59:56 [id number] [facility], [facility] [place] [address] 1 04/18/2005 15:38:40 04/19/2005 07:13:54 [id number] [facility], [facility] [place] [address] 1 04/23/2005 15:24:46 04/24/2005 07:01:47 [id number] [facility] LAB LAB - [facility] [place] [address] 1 04/24/2005 13:30:01 04/24/2005 13:35:51 [id number] [facility], [facility] [place] [address] 1 04/25/2005 09:52:02 04/26/2005 07:08:48 [id number] [facility], [facility] [place] [address] 1 04/30/2005 16:51:46 05/01/2005 07:31:57 [id number] [facility], [facility] [place] [address] 1 05/02/2005 16:49:49 05/03/2005 07:20:44 [id number] [facility], [facility] [place] [address] 1 05/09/2005 17:24:09 05/10/2005 07:18:13 [id number] [facility], [facility] [place] [address] 1 05/11/2005 15:21:45 05/14/2005 07:13:27 [id number] [facility], [facility] [place] [address] 1 05/16/2005 08:53:09 10/06/2008 02:02:29 [id number] [facility], [facility] [place] [address] 1 05/23/2005 15:43:36 05/24/2005 07:26:36 [id number] [facility] FLU CLINIC [facility], [address] [place] [address] 1 [id number] Gail Samuels PA-C [facility], [address] [place] [address] 1 10/08/2005 11:29:53 10/08/2005 13:42:52 [id number] Wisam Calixto M.D. , [facility], [address] [place] [address] 1 10/12/2005 16:45:15 10/12/2005 17:51:47 [id number] Mason Bojorquez NP , [facility], [address] [place] [address] 1 11/02/2005 09:19:55 11/02/2005 15:36:47 [id number] [facility] LAB LAB - [facility] [address] [place] [address] 1 11/02/2005 10:02:52 11/02/2005 10:03:01 [id number] EWA Lucio, [facility], [address], [place] [address] 1 11/16/2005 08:26:10 11/16/2005 16:37:49 [id number] ARACELI Salazar, [facility], [address] [place], [place] [address] 1 12/11/2005 15:47:57 12/11/2005 16:57:34 [id number] EWA Lucio, [facility], [address], [place] [address] 1 11/28/2006 10:48:45 11/28/2006 14:13:22 [id number] [facility]oc[facility], [facility] [address], [place] [address] 1 12/04/2006 11:58:45 12/04/2006 12:31:48 [id number] Joceline Parikh [facility], [facility] [address], [place] [address] 1 12/11/2006 13:52:29 12/11/2006 14:55:31 [id number] Gail Samuels PA-C , [facility], [address], [place] [address] 1 12/13/2006 13:45:25 10/06/2008 02:02:29 [id number] Joceline Parikh [facility], [facility] [address], [place] [address] 1 12/13/2006 15:20:57 12/13/2006 15:37:02 [id number] EWA Lucio, [facility], [address], [place] [address] 1 12/18/2006 14:23:13 12/18/2006 17:25:35 [id number] [facility], [facility] [address], [place] [address] 1 12/17/2006 16:20:07 12/18/2006 06:39:24 [id number] Joceline Parikh [facility], [facility] [address] [place] [address] 1 12/26/2006 16:23:10 12/27/2006 06:47:54 [id number] Gail Samuels PA-C , [facility], [address] [place] [address] 1 12/31/2006 16:02:20 12/31/2006 17:44:35 [id number] [facility] RADIOLOGY [facility] , [address] [place] [address] 1 01/22/2007 10:12:52 01/22/2007 17:20:53 [id number] Mason Bojorquez NP , [facility], [address] [place] [address] 1 01/22/2007 08:13:17 01/22/2007 14:56:37 [id number] [facility] LAB LAB - [address] [place] [address] 1 02/04/2007 09:05:58 02/04/2007 09:06:01 [id number] Zenon Lema MD , [facility], [address] [place] [address] 1 02/17/2007 14:29:03 02/17/2007 17:24:34 [id number] [facility] LAB LAB - [address] [place] [address] 1 02/17/2007 15:05:41 02/17/2007 15:05:48 [id number] Dmitri Hartman MD Rheumatol luis[address] [place] [address] 1 04/21/2007 12:51:43 04/21/2007 17:39:48 [id number] [facility] LAB LAB - [address] [place] [address] 1 05/14/2007 08:59:25 05/14/2007 08:59:29 [id number] Dmitri Hartman MD Rheumatol l[address] [place] [address] 1 05/29/2007 08:35:48 05/31/2007 09:27:52 [id number] Dmitri Hartman MD Rheumatol luis[address] [place] [address] 1 07/17/2007 08:16:16 10/06/2008 02:02:29 [id number] [facility] FLU CLINIC , [facility], [address] [place] [address] 1 08/22/2007 07:08:03 10/06/2008 02:02:29 [id number] [facility] LAB LAB - [facility] [place] [address] 1 08/22/2007 09:48:02 08/22/2007 09:48:13 [id number] MD Dayana Hassan[address] [place] [address] 1 10/09/2007 08:13:57 10/06/2008 02:02:29 [id number] [facility] LAB LAB - [facility] [place] [address] 1 10/09/2007 08:53:44 10/09/2007 08:54:27 [id number] [facility] RADIOLOGY [facility] , [address] [place] [address] 1 11/17/2007 09:00:56 11/17/2007 13:18:17 [id number] [facility] LAB LAB - [facility] [place] [address] 1 11/17/2007 08:00:55 11/17/2007 08:00:59 [id number] [facility] LAB LAB - [address] [place] [address] 1 11/24/2007 12:17:07 11/24/2007 12:17:19 [id number] Dmitri Hartman MD Rheumatheather smith[address] [place] [address] 1 11/24/2007 11:31:37 10/06/2008 02:02:29 [id number] Kip Paul MD , [facility], [place] [address] 1 12/26/2007 07:53:31 10/06/2008 02:02:29 [id number] Dmitri Hartman MD Rheumatheather smith[address] [place] [address] 1 01/06/2008 08:09:40 10/06/2008 02:02:29 [id number] [facility] LAB LAB [place] [address] 1 01/06/2008 08:50:35 01/06/2008 08:51:00 [id number] [facility], [facility] [place] [address] 1 01/16/2008 07:55:26 01/16/2008 15:23:42 [id number] Cuong Khan III, MD Physical Therapy, [facility] [place] [address] 1 01/20/2008 00:00:00 10/06/2008 02:02:29 [id number] [facility], [facility] [place] [address] 1 01/20/2008 07:51:01 01/20/2008 14:41:09 [id number] [facility], [facility] [place] [address] 1 12/31/2007 17:24:04 01/20/2008 14:38:15 [id number] Mar[facility], [facility] [place] [address] 1 01/23/2008 07:54:40 01/26/2008 07:19:17 [id number] Mar[facility], [facility] [place] [address] 1 01/27/2008 07:57:05 01/27/2008 15:04:24 [id number] Mar[facility], [facility] [place] [address] 1 02/04/2008 07:52:36 02/04/2008 11:17:58 [id number] [facility] RADIOLOGY [facility] , [facility] [place] [address] 1 04/13/2008 08:32:33 04/13/2008 17:03:47 [id number] Dmitri Hartman MD Rheumatol luis, [facility] [place] [address] 1 04/13/2008 07:55:27 10/06/2008 02:02:29 [id number] Dmitri Hartman MD Rheumatol luis, [facility] [place] [address] 1 06/21/2008 08:32:29 10/06/2008 02:02:29 [id number] [facility] LAB LAB - [facility] [address] [place], [place] [address] 1 06/21/2008 09:13:50 06/21/2008 09:14:01 [id number] Kip Paul MD , [facility], [address] [place], [place] [address] 1 07/30/2008 14:43:40 10/06/2008 02:02:29 [id number] Shani Pierre MD , [facility], [address] [place], [place] [address] 1 08/10/2008 09:01:24 10/06/2008 02:02:29 [id number] Dmitri Hartman MD Rheumatol luis, [address] [place], [place] [address] 1 09/20/2008 08:31:22 10/06/2008 02:02:29 [id number] [facility] RADIOLOGY [facility] , [facility] [address] [place], [place] [address] 1 09/20/2008 09:04:06 09/20/2008 11:55:44 [id number] Kip Paul MD , [facility], [address] [place], [place] [address] 1 11/01/2008 08:57:04 11/02/2008 09:07:28 [id number] [facility] RADIOLOGY [facility] , [facility] [address] [place], [place] [address] 1 11/09/2008 09:54:05 11/09/2008 15:16:44 [id number] Kip Paul MD , [facility], [address] [place], [place] [address] 1 12/06/2008 07:49:14 12/06/2008 15:15:49 [id number] Dmitri Hartman MD Rheumatol luis, [address] [place], [place] [address] 1 01/20/2009 07:51:10 01/21/2009 08:11:47 [id number] Dmitri Hartman MD Rheumatol luis, [address] [place], [place] [address] 1 05/19/2009 07:49:39 05/20/2009 11:01:26 [id number] [facility] RADIOLOGY [facility] , [facility] [address] 1 05/20/2009 09:19:08 05/25/2009 12:01:10 [id number] [facility] LAB LAB - [facility] [address] 1 10/27/2008 08:17:02 10/27/2008 08:17:07 [id number] [facility] LAB LAB - [facility] [place], [place] [address] 1 01/12/2009 08:08:32 01/12/2009 08:08:34 [id number] Vira Buchanan MD , [facility], [address] [place] [address] 1 08/01/2009 07:51:12 08/01/2009 12:09:51 [id number] [facility] FLU CLINIC , [facility], [address] [place] [address] 1 08/19/2009 07:03:32 08/19/2009 09:34:30 [id number] Kip Paul MD , [facility], [address] [place], [place] [address] 1 11/11/2009 08:01:51 11/11/2009 13:33:29 [id number] Dmitri Hartman MD Rheumatol luis, [address] [place] [address] 1 11/17/2009 07:53:33 11/21/2009 09:27:28 [id number] Dmitri Hartman MD Rheumatol luis, [place] [address] [place] [address] 1 12/09/2009 07:50:13 12/09/2009 15:42:49 [id number] Dmitri Hartman MD Rheumatol luis, [place] [address] [place] [address] 1 03/31/2010 07:53:31 04/03/2010 08:41:23 [id number] [facility] FLU CLINIC , [facility], [address] [place] [address] 1 07/04/2010 06:52:19 07/04/2010 10:20:32 [id number] Dmitri Hartman MD Rheumatol ogy, [address] [place], [place] [address] 1 10/06/2010 07:51:06 10/06/2010 09:20:50 [id number] [facility] RADIOLOGY [facility] , [address] [place], [place] [address] 1 10/06/2010 08:33:34 10/09/2010 14:31:59 [id number] Kip Paul MD , [facility], OFFICE [address] [place] [address] [place], [place] [address] 1 01/02/2011 08:00:19 01/02/2011 12:47:06 [id number] Dmitri Hartman MD Rheumatol ogy, [address] [place], [place] [address] 1 01/29/2011 07:52:34 01/29/2011 09:22:39 [id number] [facility] BONE DENSITY [facility] , [address] [place], [place] [address] 1 02/08/2011 14:54:03 02/08/2011 15:30:32 [id number] MAMMOGRAPH Y [facility] , [address] [place], [place] [address] 1 02/08/2011 14:54:38 02/13/2011 14:21:34 [id number] Kip Paul MD , [facility], OFFICE [address] [place] [address] [place], [place] [address] 1 06/22/2011 14:50:55 06/25/2011 08:50:35 [id number] Dmitri Hartman MD Rheumatol ogy, [address] [place], [place] [address] 1 07/12/2011 07:52:15 07/13/2011 08:27:30 [id number] Kip Paul MD , [facility], OFFICE [address] [place] [address] [place], [place] [address] 1 07/13/2011 13:47:03 07/16/2011 12:13:56 [id number] Dmitri Hartman MD Rheumatol ogy, [address] [place], [place] [address] 1 01/18/2012 07:54:08 01/18/2012 08:45:23 [id number] Kip Paul MD , [facility], [address] [place] [address] 1 04/02/2012 10:01:26 04/02/2012 11:36:00 [id number] Vira Buchanan MD , [facility], [address] [place] [address] 1 05/07/2012 10:27:56 05/08/2012 06:57:14 [id number] Dmitri Hartman MD Rheumatol stewart, [address] [address] 1 07/28/2012 07:59:37 07/28/2012 13:57:04 [id number] Dmitri Hartman MD Rheumatol stewart, [address] [address] 1 01/13/2013 08:19:12 01/13/2013 11:57:06 [id number] Kip Paul MD , [facility], [address] [place] [address] 1 04/20/2013 08:57:16 04/20/2013 14:51:05 [id number] Dmitri Hartman MD Rheumatol stewart[address] [address] 1 08/03/2013 07:53:10 08/03/2013 10:55:19 Inflammatory polyarthropathy [id number] Hx of inflammato ry arthropath y. Doing quite well on NSAID treatment alone. No active synovitis. Current sx's mostly related to DJD. Continue Celebrex. Takes fish oil. Vicodin helpful, only takes one each night. May continue. Flu shot today. Smoker. Had pneumovax [address]. Should [address] Paul if needs repeat (probably not untill age 63). Influenza vaccine needed [id number] Dmitri Hartman MD Rheumatol og, [address] [address] 1 12/18/2013 07:53:34 12/21/2013 09:47:19 Inflammatory polyarthropathy 359731510 Hx of inflammato ry arthropath y. Doing quite well on NSAID treatment alone. No active synovitis. Current sx's mostly related to DJD. Can try Voltaren gel on hands and feet. Continue Celebrex. Takes fish oil. Vicodin helpful, only takes one each night. May continue. Foot pain [id number] Onoin g foot pain worse with prolongued standing. Does not appear to be related to inflammato ry process. Should consider podiatry eval. Discussed. [id number] Kip Paul MD , [facility], OFF[address] [place] [address] 1 04/30/2014 08:51:55 04/30/2014 12:14:13 Adult health examination [id number] see Risk Assessment and Lifestyle Change Counseling section above Varicella vaccination [id number] Bipolar disorder 19918040 stable on current meds Low back pain 572072777 recurrent- -exercises help Insomnia 523526961 Chron ic. Does snore, ? sleep apnea. Decrease or elimanate caffeine. Get regular exercise. Trazadone helps some--get sleep study Alcohol dependence 71862621 maintainin g sobriety-- doing great, continue Tobacco user 656993336 n o motivation to quit [id number] Dmitri Hartman MD Rheumatol ulis, [facility] [address] [place] [address] 1 06/21/2014 08:08:02 06/22/2014 10:12:22 Inflammatory polyarthropathy 065824192 Hx of inflammato ry arthropath y. Doing quite well on NSAID treatment alone. No active synovitis. Current sx's mostly related to DJD. Continue Voltaren gel on hands and feet. (helps a little) Continue Celebrex. Takes fish oil. Vicodin helpful, only takes one each night. May continue. Viral syndrome 649923712 ?? viral syndrome with persisting headache, mild myalgia. I suppose we should consider Lyme disease, though no known tick bite. I am not suspicious enough to give antibiotic s. Can check Lyme test today, perhaps repeat testing in 4-6 weeks. If sx's persist another few days should be seen by Primary Care Should not get flu shot today with viral sx's. [id number] Kip Paul MD , [facility], OFF[address] [place] [address] 1 07/15/2014 07:25:06 07/15/2014 08:25:01 Influenza vaccine needed [id number] Dmitri Hartman MD Rheumatol luis, [facility] [address] [place] [address] 1 12/23/2014 08:30:35 12/23/2014 09:14:53 Inflammatory polyarthropathy 447778296 Prior nx of inflammato ry arthropath y. Virtually no sign of this now. Doing quite well on NSAID treatment alone. . Current sx's mostly related to DJD. Continue Voltaren gel on hands and feet. (helps a little) Continue Celebrex. Takes fish oil. Vicodin helpful, only takes one each night. May continue. Takes hydrocodon e only at night, never more than one. Will renew. [id number] Kip Paul MD , [facility], OFF[address] [place] [address] 1 03/04/2015 14:46:22 03/07/2015 08:29:57 Acute urinary tract infection 176533102 Bipolar disorder 76718334 stable on current meds--now on latuda, check labs [id number] Vira Buchanan MD , [facility], OFF[address] [place] [address] 1 04/12/2015 15:44:06 04/12/2015 16:31:14 Tobacco user 312264927 f/u with PCP for continued discussion of smoking cessation. Pneumonia 983676782 CAP in smoker with chronic lung disease. Rec azithromyc in 250mg - TAKE 2 TABLETS (500 MG) BY ORAL ROUTE ONCE DAILY FOR 1 DAY THEN 1 TABLET (250 MG) BY ORAL ROUTE ONCE DAILY FOR 4 DAYS - Rec Flovent 220mcg inhaler as two puffs twice a day x 1 wk, then wean by 1 puff/week. Rec CXR and CT scan in two weeks if no better. Acute exac erbation of chronic obstructive pulmonary disease 098846217 see above re: addition of steroid MDI. Pt resistant to use of po steroids. Rec PFTs when back to baseline. [id number] ARACELI Bates, [facility], OFFICE [address] [place] [address] 1 04/27/2015 09:21:11 04/28/2015 14:40:29 Wheezing 32385633 Continued symptoms previously diagnosed as pneumonia not cleared with azithromyc in. CXR today without acute changes, s/p R thoracotom y. Given hx as a smoker and prior hx malignancy , will obtain chest CT. Continue flovent as she is doing. Ceck CBC today to evaluated for ongoing signs of infection vs emphysema flare.Foll ow up after CT result known. Fatigue 46845434 Check C BC [id number] Kip Paul MD , [facility], [address] [place] [address] 1 06/17/2015 08:58:19 06/20/2015 07:37:33 Adult health examination 062509029 Z00.00 see Risk Assessment and Lifestyle Change Counseling section above Influenza vaccine needed [id number] 106 Z28.3 Bipolar disorder 8189858 4 F31.9 with major depression --stable on current meds--cont inue Alcohol dependence 77609 003 F10.20 maintainin g sobriety-- doing great, continue Moderate c hronic obstructive pulmonary disease 873729898 J43.9 continue working on cutting out cigarettes Insomnia [id number] G47.0 0 Chronic. did better with trazodone, will resume Tobacco user [id number] Z 72.0 tapering down well, no benefit to wellbutrin /patch in past, afraid to try Chantix/de pression [id number] Dmitri Hartman MD [facility], [address] [place] [address] 06/20/2015 08:09:39 06/20/2015 10:04:12 Inflammatory polyarthropathy 965096998 M06.4 Prior Hx of inflammato ry arthropath y. Treated as for Sero-negat adebayo RA with SSZ etc, but off DMARD treatment since 2010. Virtually no sign of this now. Doing quite well on NSAID treatment alone. . Current sx's mostly related to DJD. Continues on Celebrex; is quite certain it helps. Also continues on just one Vicodin each night. Has been on this for years. I don't see this as a problem. Renew. [id number] Dmitri Hartman MD [facility], [address] [place] [address] 12/16/2015 08:10:48 12/16/2015 14:35:12 Inflammatory polyarthropathy [id number] M06.4 Prior Hx of inflammato ry arthropath y. Treated as for Sero-negat adebayo RA with SSZ etc, but off DMARD treatment since 2010. Virtually no sign of this now. Doing quite well on NSAID treatment alone. . Current sx's mostly related to DJD. Continues on Celebrex; is quite certain it helps. Also continues on just one Vicodin each night. Has been on this for years. I don't see this as a problem. Renew. Bronchitis 69893613 J40 3 wks sx. Productive cough. No wheezing. No fever. Former smoker. Will Rx with Abx 5 days. If not improving should see Primary care [id number] Dmitri Hartman MD [facility], [address] [address] 04/19/2016 08:31:10 04/23/2016 08:47:28 Chronic pain 14048681 G89.29 Mild chronic pain. Takes one Vicodin hs. Stable dose for years. Renew. Inflammato ry polyarthropathy 542210758 M06.4 Prior Hx of inflammato ry arthropath y. Treated as for Sero-negat adebayo RA with SSZ etc, but off DMARD treatment since 2010. Virtually no sign of this now. Doing quite well on NSAID treatment alone. . Current sx's mostly related to DJD. Continues on Celebrex. [id number] Kip Paul MD , [facility], OFFICE [address] [place] [address] 06/25/2016 06:58:24 06/25/2016 13:29:09 Active or passive immunization 501081760 Z23 [id number] Marietta Connelly NP , [facility], OFFICE [address] [place] [address] 07/30/2016 08:59:17 07/30/2016 10:25:12 Cigarette smoker 14879838 F17.210 Foot pain 12841083 M79.6 72 Fracture in 5th metatarsal per wet read. Pt offered stiff soled shoe and she declined. Reviewed rest, ice, mannie taping. May return to usual activities in 1-2 weeks depending on pain tolerance. [id number] Dmitri Hartman MD [facility], [address] [place] [address] 10/16/2016 07:51:17 10/16/2016 12:24:13 Inflammatory polyarthropathy 152553415 M06.4 Prior Hx of inflammato ry arthropath y. Treated as for Sero-negat adebayo RA with SSZ etc, but off DMARD treatment since 2010. Virtually no sign of this now. Doing quite well on NSAID treatment alone. . Current sx's mostly related to DJD. Continues on Celebrex. Taking Vicodin at night to help with sleep. It is quite useful, she has been doing this for years. Only takes one per night. I seen no reason to change. Renewed. Tobacco user 650307427 Z 72.0 Generalize d osteoarthritis 970765015 M15.9 Mildly symptomati c OA hands, knees, feet. Celebrex helps. [id number] Kip Paul MD , [facility], OFFICE [address] [facility] [place] [address] 11/12/2016 10:02:06 11/12/2016 11:28:10 Adult health examination 793515018 Z00.00 see Risk Assessment and Lifestyle Change Counseling section above Cigarette smoker 7993732 7 F17.210 Tobacco user 781209050 Z 72.0 not willing to give up last 3 cigarettes --unless daughter gets pregmant Screening mammography 24 485582 Z12.31 Knee pain 35208000 M25.5 62 options discussed, combin of ITband plus djd--injec raymundo per request, to PT Alcohol dependence 78710 003 F10.20 maintainin g sobriety-- doing great, continue History of malignant neoplasm of breast 204862615 Z85.3 [id number] [facility], [address] [place] [address] 12/05/2016 08:50:09 12/05/2016 13:08:33 Iliotibial band friction syndrome 610476080 M76.32 [id number] [facility], [address] [place] [address] 12/11/2016 08:49:40 12/13/2016 09:28:03 Iliotibial band friction syndrome 458823359 M76.32 [id number] [facility], [address] [place] [address] 12/17/2016 08:55:18 12/17/2016 10:32:00 Iliotibial band friction syndrome 107323313 M76.32 [id number] [facility], [address] [address] 12/17/2016 09:35:19 12/17/2016 09:35:47 [id number] [facility], [address], [place] [address] 12/25/2016 08:52:53 12/25/2016 11:18:08 Iliotibial band friction syndrome 364085930 M76.32 [id number] [facility], [address], [place] [address] 01/01/2017 09:23:16 01/01/2017 13:32:43 Iliotibial band friction syndrome 224486414 M76.32 [id number] [facility], [address], [place] [address] 01/15/2017 08:49:11 01/15/2017 13:04:11 Iliotibial band friction syndrome 924286021 M76.32 [id number] [facility], [address], [place] [address] 01/23/2017 08:52:10 01/23/2017 13:21:30 Iliotibial band friction syndrome 774849649 M76.32 [id number] [facility], [address], [place] [address] 01/30/2017 08:51:20 01/30/2017 12:08:24 Iliotibial band friction syndrome 786556853 M76.32 [id number] Duke Dutta MD Sports Medicine, [address], [place] [address] 02/05/2017 13:02:58 02/05/2017 14:10:36 Knee pain 62409213 M25.562 Anushka is a 61-year-ol d female with left leg pain secondary to distal IT band friction syndrome and discomfort along her iliotibial band. I had an extensive review with her regarding the likely cause of her pain as well as will as treatment options. I have advised that she start physical therapy concentrat ing on improving her hip and core strength as well as stretching of her IT band. She will also use as needed NSAID medication for discomfort as well as icing of her IT band. She will plan to follow up with me in 8 weeks for reevaluati on if she is continuing to have any pain or symptoms. Cigarette smoker 2568284 7 F17.210 I discussed smoking cessation with Anushka who is currently smoking approximat dayan 3 cigarettes a day since age 13. We reviewed the adverse effects of smoking on her cardiovasc ular and musculoske letal systems. I also discussed with her options for quitting including the use of nicotine patches, nicotine gum, oral medication , and cognitive therapy. Greater than 3 minutes was spent performing tobacco cessation counseling today in the office. I've advised follow-up with patients PCP to continue to work on smoking cessation. Tobacco user 542646621 Z 72.0 [id number] [facility], [address] [place] [address] 02/26/2017 07:54:48 02/26/2017 13:29:15 Knee pain 74204008 M25.562 Pain of hip region 30833 002 M25.552 Iliotibial band friction syndrome 713956838 M76.32 [id number] Marilee De Luna Physical [facility], [address] [place] [address] 03/04/2017 09:49:17 03/05/2017 11:08:02 Knee pain 18164864 M25.562 Pain of hip region 50121 002 M25.552 Iliotibial band friction syndrome 742621278 M76.32 [id number] Marilee De Luna Physical [facility], [address] [place] [address] 03/07/2017 08:28:59 03/11/2017 07:45:52 Knee pain 53530047 M25.562 Pain of hip region 11313 002 M25.552 Iliotibial band friction syndrome 687480305 M76.32 [id number] [facility], [address] [place] [address] 03/12/2017 13:48:21 03/13/2017 12:25:29 Knee pain 97778716 M25.562 Pain of hip region 84889 002 M25.552 Iliotibial band friction syndrome 357721168 M76.32 [id number] Marilee De Luna Physical [facility], [address] [address] 03/18/2017 13:51:29 03/18/2017 17:05:18 Knee pain 35024720 M25.562 Pain of hip region 11530 002 M25.552 Iliotibial band friction syndrome 745128801 M76.32 [id number] Marilee Calixto Physical [facility], [address] [address] 03/28/2017 07:50:29 03/28/2017 09:21:41 Knee pain 86614441 M25.562 Pain of hip region 60495 002 M25.552 Iliotibial band friction syndrome 557669474 M76.32 [id number] [facility], [address] [address] 04/04/2017 07:45:43 04/04/2017 11:36:05 Knee pain 36040731 M25.562 Pain of hip region 62014 002 M25.552 Iliotibial band friction syndrome 337926910 M76.32 [id number] Gail Frausto Physical [facility], [address] [address] 04/11/2017 07:51:41 04/12/2017 12:16:13 Knee pain 60523392 M25.562 Pain of hip region 46091 002 M25.552 Iliotibial band friction syndrome 330391032 M76.32 [id number] Sarah Acosta MD , [facility], OFFICE [address] [place] [address] 05/27/2017 12:16:54 05/27/2017 14:18:26 Osteoarthritis of knee 502236950 M17.9 Knee effusion. Should consider hyaluronic injections . I urged the [facility] Genu knee brace [id number] Dmitri Hartman MD Rheumatol ogy, [address] [address] 06/14/2017 09:50:32 06/17/2017 07:40:54 Inflammatory polyarthropathy 921616915 M06.4 Prior Hx of inflammato ry arthropath y. Treated as for Sero-negat adebayo RA with SSZ etc, but off DMARD treatment since 2010. Virtually no sign of this now. Doing quite well on NSAID treatment alone. . Current sx's mostly related to DJD. May have L anserine bursitis: see below. Continues on Celebrex. Taking Vicodin at night to help with sleep. It is quite useful, she has been doing this for years. Only takes one per night. I seen no reason to change. Renewed. Tobacco user 839248917 Z 72.0 Discussed with patient advisabili ty of smoking cessation. Specifical ly emphasized that, in addition to other ills, smoking promotes inflammati on. Offered encouragem ent to stop smoking. Pt resistent to suggestion s. Cigarette smoker 0736021 7 F17.210 Pain of mu ltiple joints 33565540 M25.50 Using Vicodin just one at night. On this several years. No dose escalation . Tried to look up [facility], but said no record. Knee pain 41768084 M25.5 62 Knee pain localizing to medial L knee in region of anserine bursa. There may be some subtle puffiness and she is locally tender.X ray in January showed minimal narrowing medial joint space. Knee injection did not help. Will try injection anserine bursa. [id number] Kip Paul MD , [facility], OFFICE [address] [facility] [place] [address] 06/28/2017 13:46:45 06/28/2017 15:42:58 Urinary tract infectious disease 29866239 N39.0 Patient instructed to push fluids, to follow up for persistent or worsening symptoms or fever or back pain. Active or passive immunization 912558788 Z23 Cigarette smoker 5570521 7 F17.210 Tobacco user 646995759 Z 72.0 no motivation to quit [id number] Duke Dutta MD Sports Medicine, [facility] [address] [facility] [place] [address] 09/24/2017 07:44:44 09/24/2017 08:35:04 Cigarette smoker 43910802 F17.210 I did discuss smoking cessation with Anushka today in the office. She continues to smoke 3 cigarettes a day but does plan to quit in March when she has a new grandchild coming. She is planning to use the patch and/or nicotine gum but is concerned she will be unable to quit. I reviewed with her ramakrishna e treatment options including cognitive therapy in the use of oral medication . I also reviewed with her the adverse effects of smoking on her cardiovasc ular and muscle skeletal systems. I encouraged her to continue working on smoking cessation with her primary care provider. Greater than 3 minutes was spent performing tobacco cessation counseling today in the office. I've advised follow-up with patients PCP to continue to work on smoking cessation. Tobacco user 281932544 Z 72.0 Knee pain 51458228 M25.5 62 Anushka is a 62-year-ol d female with left knee pain that I believe is secondary primarily to mild osteoarthr itis but also a component of pes anserine bursitis. She has maximal pain along her medial tibial plateau medial joint line that I feel is secondary to degenerati ve changes of the joint but also some mild puffiness slightly distal to this along the bursa. A brief ultrasound was performed in the office revealing no joint effusion and no fluid collection or abnormalit y at the area swelling along her medial knee. I reviewed all of this with her today in the office as well as discussing treatment options both short and long-term. We discussed NSAID use, physical therapy, injection therapy, and the possibilit y of surgical interventi on. I did advise that knee osteoarthr itis often responds to physical therapy and this may also help with the overactivi ty of her hamstrings contributi ng to her pes bursitis. She was given a referral will call to set up an appointmen t. She will plan a follow-up with me in 8 weeks for reevaluati on. If she has persistent discomfort she may at that time benefit from an intra-norman cular injection and/or injection of her pes bursa. [id number] Kip Hatfield, PT Physical Therapy, [facility] [address] [facility] [place] [address] 10/30/2017 08:53:28 11/04/2017 07:41:45 Knee pain 93791138 M25.562 Pes anseri nus bursitis 10563407 M70.52 Disorder o f patellofemoral joint 501284362 M22.2X9 [id number] Kip Hatfield, PT Physical Therapy, [address] [place] [address] 11/04/2017 07:55:40 11/04/2017 15:55:00 Knee pain 42788711 M25.562 Pes anseri nus bursitis 18001722 M70.52 Disorder o f patellofemoral joint 887879710 M22.2X9 [id number] Kip Hatfield, PT Physical Therapy, [address] [place] [address] 11/08/2017 07:52:22 11/11/2017 07:19:35 Knee pain 56685783 M25.562 Pes anseri nus bursitis 83373454 M70.52 Disorder o f patellofemoral joint 078956846 M22.2X9 [id number] Kip Hatfield, PT Physical Therapy, [address] [place] [address] 11/12/2017 09:51:23 11/13/2017 07:24:20 Knee pain 99453841 M25.562 Pes anseri nus bursitis 59106810 M70.52 Disorder o f patellofemoral joint 929336807 M22.2X9 [id number] Kip Paul MD , [facility], OFFICE [address] [facility] [place] [address] 11/13/2017 08:59:15 11/13/2017 13:49:40 Adult health examination 146507861 Z00.00 see Risk Assessment and Lifestyle Change Counseling section above Depression screening 171 406394 Z13.89 depression screening tool administer ed, entered into emr, scored and discussed, time greater than 7.5 minutes Cigarette smoker 1873985 7 F17.210 Tobacco user 676317662 Z 72.0 finally motivation to quit, plans on ecig Inflammato ry polyarthropathy 602107441 M06.[address] Hartman Chronic al coholism in remission 408103050 F10.21 maintainin g sobriety-- 19 yrs, doing great, continue Knee pain 25179332 M25.5 62 options discussed, combin of ITband plus djd plus pes ans burisits, PT not helping, has f/u Dr Dutta Low back pain 686129409 M54.5 recurrent- -exercises help, occas soma helps [id number] Duke Dutta MD Sports Medicine, [address] [place], [place] [address] 11/19/2017 07:41:50 11/19/2017 08:52:44 Cigarette smoker 38132405 F17.210 I did discuss smoking cessation again today with Anushka in the office. She did recently meet with Jeremias Lopez and is working on smoking cessation. She does continue to smoke 3 cigarettes a day. She does have a plan in place to stop in February when her daughter is due to have a child. I continue to encourage her to work on smoking cessation and congratula raymundo her on the steps she has taken. Greater than 3 minutes was spent performing tobacco cessation counseling today in the office. I've advised follow-up with patients PCP to continue to work on smoking cessation. Tobacco user 977669027 Z 72.0 Knee pain 96936416 M25.5 62 Anushka is a 62-year-ol d female with left knee pain that I believe is secondary to mild osteoarthr itis as seen on her recent x-rays as well as pes bursitis. I again reviewed this diagnosis with her today in the office as well as discussing treatment options both short and long-term. We discussed physical therapy, use of NSAIDs, injection therapy, and the possibilit y of surgical interventi on. Unfortunat dayan she has failed improvemen t with conservati ve management including physical therapy and NSAIDs. Due to her persistent discomfort a decision was made to perform an ultrasound -guided left knee joint corticoste roid injection under ultrasound guidance. She also underwent a left has bursa corticoste roid injection. She tolerated both of these without complicati on. I have advised that she ice and rest her knee over the next week and gradually resume normal activities . She will restart physical therapy in [facility] 2 weeks. I am happy to see her back on an as-needed basis for further care she has persistent runny or return of pain. [id number] Dmitri Hartman MD Rheumatol luis, [address] [place], [place] [address] 11/28/2017 08:09:12 11/28/2017 08:38:57 Inflammatory polyarthropathy 630490419 M06.4 Prior Hx of inflammato ry arthropath y. Treated as for Sero-negat adebayo RA with SSZ etc, but off DMARD treatment since 2010. Virtually no sign of this now. Doing quite well on NSAID treatment alone. . Current sx's mostly related to DJD. May have L anserine bursitis: see below. Continues on Celebrex. Taking Vicodin at night to help with sleep. It is quite useful, she has been doing this for years. Only takes one per night. I seen no reason to change. Renewed. Tobacco user 165978294 Z 72.0 Discussed with patient advisabili ty of smoking cessation. Specifical ly emphasized that, in addition to other ills, smoking promotes inflammati on. Offered encouragem ent to stop smoking. Pt resistent to suggestion s. Cigarette smoker 0058041 7 F17.210 Osteopenia 848667827 M85 .80 Last scan was 2010. Showed osteopenia . Does weight bearing exercise. Lots of dairy. Osteoarthr itis of knee 481832990 M17.12 X ray findings mild DJD L knee.Ongoi ng sxs, but helped by steroid injection. Had questions about frequency of steroid injections .Also discussed possibilit y of gel injections . Most recently, had both intra-norman cular and anserine injections the same day, so not clear whether sxs mostly from knee joint or from anserine bursa. [id number] Kip Hatfield, PT Physical Therapy, [address] [place] [address] 12/11/2017 09:23:07 12/13/2017 08:40:09 Knee pain 16348158 M25.562 Pes anseri nus bursitis 88761084 M70.52 Disorder o f patellofemoral joint 604647144 M22.2X9 [id number] Ruba Whitehead MD , [facility], OFFICE [address] [facility] [place] [address] 01/14/2018 13:46:26 01/14/2018 15:29:33 Acute maxillary sinusitis 23857091 J01.00 I think she would benefit from abx. also recommende d mucinex D and nasal saline irrigation and quitting smoking. Follow up as needed if your concerns are persisting or worsening over time, or if new symptoms arise. Cigarette smoker 2120006 7 F17.210 applauded her preparatio n for quitting! encouragem ent given! Tobacco user 740233187 Z 72.0 [id number] Dmitri Hartman MD Rheumatol luis, [address] [place] [address] 05/29/2018 07:52:42 05/29/2018 08:28:04 Inflammatory polyarthropathy 449272384 M06.4 Prior Hx of inflammato ry arthropath y. Treated as for Sero-negat adebayo RA with SSZ etc, but off DMARD treatment since 2010. Virtually no sign of this now. Doing quite well on NSAID treatment alone. . Current sx's mostly related to DJD. Continues on Celebrex. Taking Vicodin at night to help with sleep. It is quite useful, she has been doing this for years. Only takes one per night. I seen no reason to change. Renewed. Tobacco user 427576063 Z 72.0 Discussed with patient advisabili ty of smoking cessation. Specifical ly emphasized that, in addition to other ills, smoking promotes inflammati on. Offered encouragem ent to stop smoking. Pt says today she is beginning to to cut down. Cigarette smoker 8612408 7 F17.210 Active or passive immunization 136158862 Z23 Osteoarthr itis of knee 455164406 M17.12 X ray findings mild DJD L knee.Ongoi ng sxs, but helped by steroid injection. Last injection 6 mo ago. Repeat today at her request. [id number] EWA León, [facility], OFFICE [address] [place] [address] 07/17/2018 08:56:41 07/17/2018 10:45:08 Urinary tract infectious disease 43222454 N39.0 Patient instructed to push fluids, to follow up for persistent or worsening symptoms or fever or back pain. Cigarette smoker 4598403 7 F17.210 Pre-contem plative. Will continue to discuss. Tobacco user 666400935 Z 72.0 Acute urin ciaran tract infection 457952849 N39.0 Culture pending. Abx as directed. Reviewed medication risks, benefits, side effects, and limitation s. [id number] Marcelo Griffin Jr. MD , [facility], OFFICE [address] [place] [address] 08/04/2018 07:43:49 08/04/2018 08:50:58 Cigarette smoker 68423916 F17.210 Prepatella r bursitis of left knee 6546027988 34254 M70.42 Given overlying abrasion and large size with persistent /worsening pain, recommende d initiation of doxycyclin e along with use of compressio n wrap with Noel bandage ice and NSAIDs. Await results from culture. Advised use of topical antibiotic ointment to abrasion to hasten healing. Reviewed red flag symptoms and when to seek emergency care. Advised follow-up in 7-10 days. Tolerated aspiration well. Reviewed risks and benefits of doxycyclin e. Patient wishes to initiate. [id number] Marcelo Griffin Jr. MD , [facility], OFFICE [address] [place] [address] 08/11/2018 07:15:50 08/11/2018 07:56:20 Cigarette smoker 54555800 F17.210 Encouraged patient to cut back and consider cessation. Discussed risks associated with prolonged tobacco exposure. Discussed possibilit y of medication options to assist in cessation. Reviewed cessation support options available through [facility]. Keagan hanley 3 minutes spent discussing smoking and strategies / reasons to quit. Contusion of left knee 2601260712 7311546 S80.02XD Continue with conservati ve measures including anti-infla mmatory medication s, icing, and low impact exercise. Has appointmen t with sports medicine later this week. Will obtain x-ray to rule out underlying occult bony pathology. [id number] Duke Dutta MD Sports Medicine, [facility] [address] [place] [address] 08/14/2018 08:46:56 08/14/2018 09:58:21 Knee pain 05042067 M25.562 Anushka is a 62-year-ol d female with left knee pain secondary to a dramatic prepatella r bursitis. Her x-rays taken after her recent fall demonstrat e no evidence of bony injury of her patellar or surroundin g bones of the knee joint. A brief ultrasound was performed in the office revealing no joint effusion today as well as an intact patellar and quadriceps tendon. She is also able to perform straight leg raises today without any extensor lag. She was also noted to have on ultrasound a fluid collection anterior to the patella consistent with prepatella r bursitis. I reviewed all of this with her today in the office as well as discussing treatment options. We discussed conservati ve management with continued observatio n as well as the use of NSAIDs and icing to see if this resolves on its own as well as considerat ion of a repeat aspiration as well as corticoste roid injection. At her request we did perform a left knee prepatella r bursa aspiration and corticoste roid injection under ultrasound guidance. She tolerated this well about complicati on. I have advised that she ice and rest this area for the next week and gradually resume normal activities . She was given a compressio n dressing to wear for the next 24 hours to hopefully prevent reaccumula tion of the fluid. She will plan a follow-up with me in 4 weeks for reevaluati on. [id number] Duke Dutta MD Sports Medicine, [facility] [address] [facility] [place] [address] 09/11/2018 08:22:43 09/12/2018 08:05:58 Knee pain 12167180 M25.562 Anushka is a 63-year-ol d female with left knee pain which I feel is related to chronic underlying osteoarthr itis of the knee joint as seen on her previous x-rays from 2016. She also has some discomfort related to a recent acute injury and prepatella r bursitis. She has had a significan t improvemen t in symptoms with her recent prepatella r bursa corticoste roid injection. A brief ultrasound was performed in the office today revealing no joint effusion and no anterior knee fluid collection s or evidence of persistent bursitis. Her recent x-rays from July reveal no evidence of bony injury or fall. At this point I have advised that she can return to activities as tolerated. She likely will have some persistent discomfort due to her underlying osteoarthr itis. We did discuss the possibilit y of a repeat knee joint corticoste roid injection future. I am happy to see her back as needed for further care. [id number] Marcelo Griffin Jr. MD , [facility], OFFICE [address] [facility] [place] [address] 11/14/2018 08:02:00 11/14/2018 15:52:34 Adult health examination 272130032 Z00.00 see Risk Assessment and Lifestyle Change Counseling section above Counseling 686526501 Z71 .9 Depression screening 171 312253 Z13.89 depression screening tool administer ed, entered into emr, scored and discussed, time greater than 7.5 minutes Screening for malignant neoplasm of colon 844899577 Z12.11 Active or passive immunization 270750281 Z23 Bipolar disorder 0493295 4 F31.9 As managed by psychiatry specialist . Continue with current meds of Latuda, and lamotrigin e Inflammato ry polyarthropathy 177754430 M06.4 Monitored by rheumatolo gy (Dr. Hartman). Continue with celecoxib. Symptoms appear stable. Has also seen Sports Medicine (Dr. Dutta) for knee symptoms earlier this year. Chronic al coholism in remission 097519776 F10.21 Remains in remission. Discussed importance of maintainin g sobriety. Low back pain 364421818 M54.5 Chronic and intermitte ntly symptomati c. Reviewed risks of Soma medication . Advised that I am not comfortabl e continuing to prescribe the medication . Would recommend baclofen 10 mg tabs in the future if needed. Baclofen would need to be taken primarily at night time. Could take 1 - 2 tabs as needed. Insomnia 230032067 G47.0 0 As managed by psychiatry . Currently receiving temazepam and trazodone Nicotine dependence 5629 4008 F17.200 Patient has successful ly transition ed from smoking to vaping. Encouraged patient to work on cutting back and consider cessation from all nicotine products. Discussed risks associated with prolonged nicotine exposure. Reviewed cessation support options available through [facility]. Keagan hanley 3 minutes spent discussing smoking and strategies / reasons to quit. Chronic ob structive pulmonary disease 34802040 J44.9 Has Pro Air inhaler available as needed. Symptoms remain stable. Encouraged continued efforts at abstaining from smoking exposure. Anxiety disorder 7000257 06 F41.9 As managed by psychiatry . Receiving prescripti on for alprazolam . [id number] Dmitri Hartman MD Rheumatol luis, [facility] [address] [facility] [place] [address] 11/27/2018 07:54:10 11/27/2018 08:21:31 Inflammatory polyarthropathy 787601814 M06.4 Prior Hx of inflammato ry arthropath y. Treated as for Sero-negat adebayo RA with SSZ etc, but off DMARD treatment since 2010. Virtually no sign of this now. Doing quite well on NSAID treatment alone. . Current sx's mostly related to DJD. Continues on Celebrex. Taking Vicodin at night to help with sleep. It is quite useful, she has been doing this for years. Only takes one per night. I seen no reason to change. Renewed. Pain in left knee 515951 [id number] 59417 M25.562 L knee pain with findings of some P-F pain, likely some DJD.She is doing exercises that put a lot of stress on P-F articulati on. Discussed. Can try intra-norman cular injection. If no improvemen t, would check x ray with patella views. Consider specific PT. Insomnia 032930059 G47.0 0 Taking Vicodin at night to help with sleep. It is quite useful, she has been doing this for years. Only takes one per night. I seen no reason to change. Renewed. [id number] Marcelo Griffin Jr. , [facility], OFFICE [address] [facility] [place] [address] 02/18/2019 09:06:42 02/18/2019 14:12:28 Sepsis caused by Escherichia coli 791163453 A41.51 Clinically resolving. Patient to complete entire course of levofloxac in. Recurrent urinary tract infection 536838559 N39.0 Encouraged patient to increase hydration. Would be interested in further evaluation and treatment by urogynecol luis. Likely related to cystocele Cystocele 099080544 N81. 10 Using a pessary presently. [id number] Duke Dutta MD Sports Medicine, [facility] [address] [facility] [place] [address] 05/07/2019 07:44:46 05/08/2019 09:00:00 Knee pain 60729151 M25.562 Anushka is a 63-year-ol d female with left knee pain ongoing for several years but unfortunat dayan has been persistent despite over 8 weeks of physical therapy as well as a corticoste roid injection. She does have some very minor degenerati ve changes on her x-rays but overall they do not demonstrat e any severe degenerati ve changes. We discussed options including returning to physical therapy, repeat injection therapy, and advanced imaging to obtain more informatio n to better determine the cause of her discomfort . Due to her continued discomfort I have asked that she have an MRI of the knee done to evaluate possible meniscal pathology contributi ng to her discomfort . She will plan to have her MRI done follow-up with me afterwards reevaluati on. [id number] Duke Dutta MD Sports Medicine, [address] [place] [address] 05/21/2019 12:45:31 05/22/2019 10:25:53 Knee pain 15636279 M25.562 Anushka is a 63-year-ol d female with left knee pain which I believe is secondary to degenerati ve changes as seen on her recent MRI. Her images demonstrat e significan t degenerati on of the lateral compartmen t full-thick ness loss of cartilage particular ly along the tibial plateau. She was also noted to have tearing of the posterior horn of the medial meniscus. I reviewed all these findings with her today as well as discussing options for treatment in her age group. We discussed conservati ve management with physical therapy as well as a corticoste roid injection. I also discussed the possibilit y of viscosuppl ementation . We also discussed the potential for surgical interventi on which it most likely consist of a knee replacemen t. At this time due to her pain she did undergo a left knee joint corticoste roid injection under ultrasound guidance. She tolerated swelling about complicati on. She will plan to ice and rest over the next week and gradually resume normal activities . She can restart her home physical therapy in 7-10 days. She will plan a follow-up with me as needed for further care. Osteoarthr itis of knee 615228511 M17.12 [id number] Dmitri Hartman MD Rheumatol luis, [address] [place] [address] 06/05/2019 07:53:23 06/05/2019 14:35:22 Inflammatory polyarthropathy 516838189 M06.4 Prior Hx of inflammato ry arthropath y. Treated as for Sero-negat adebayo RA with SSZ etc, but off DMARD treatment since 2010. Virtually no sign of this now., though note that synovial fluid from L knee mildly inflammato ry in 2017. Doing quite well on NSAID treatment alone. . Current sx's mostly related to DJD. Continues on Celebrex. Taking Vicodin at night to help with sleep. Helps with foot pain. It is quite useful, she has been doing this for years. Only takes one per night. I seen no reason to change. Renewed. Osteoarthr itis of knee 045705300 M17.12 X ray findings mild DJD L knee, but MRI shows complete loss cartilage lat femoral condyle and meniscal tears. .Ongoing sxs, but helped by steroid injection. Discussed Knee surgery. Should continue with periodic injections for now. Gel series an option in future. Also relevant is that she had episode of urosepsis and this could be disastrous in setting of knee replacemen t. [id number] Dmitri Hartman MD Rheumatol [facility] [place] [address] [place] [address] 07/07/2019 15:55:14 07/09/2019 06:14:23 Osteoarthritis of knee 840467641 M17.12 X ray findings mild DJD L knee, but MRI shows complete loss cartilage lat femoral condyle and meniscal tears. .Ongoing sxs, helped by steroid injection but only transientl y. Here to try Supartz series.. Also relevant is that she had episode of urosepsis and this could be disastrous in setting of knee replacemen t. [id number] Dmitri Hartman MD Rheumatol luis, [address] [place] [address] 07/14/2019 11:11:10 07/14/2019 15:27:00 Osteoarthritis of knee 080732713 M17.12 X ray findings mild DJD L knee, but MRI shows complete loss cartilage lat femoral condyle and meniscal tears. .Ongoing sxs, helped by steroid injection but only transientl y. Here to try Supartz series..Se cond inj today. Also relevant is that she had episode of urosepsis and this could be disastrous in setting of knee replacemen t. [id number] Dmitri Hartman MD Rheumatol luis, [address] [place] [address] 07/24/2019 09:50:35 07/24/2019 12:17:33 Chronic pain 37159246 G89.29 Mild chronic pain. Takes one Vicodin hs. Stable dose for years. Renew. Osteoarthr itis of knee 817415749 M17.12 X ray findings mild DJD L knee, but MRI shows complete loss cartilage lat femoral condyle and meniscal tears. .Ongoing sxs, helped by steroid injection but only transientl y. Here to try Supartz series..Th ird inj today. Also relevant is that she had episode of urosepsis and this could be disastrous in setting of knee replacemen t. [id number] Duke Dutta MD Sports Medicine, [address] [place] [address] 08/18/2019 14:56:13 08/19/2019 09:07:21 Knee pain 96300458 M25.562 Anushka is a 64-year-ol d female with left knee pain due to degenerati ve changes as seen on her previous MRI. She was noted to have tricompart mental osteoarthr itis particular ly in the lateral compartmen t with full-thick ness cartilage loss as well as complex tearing of the posterior horn of the medial meniscus. Unfortunat dayan she has had only limited relief of symptoms with physical therapy as well as corticoste roid injections and viscosuppl ementation . We discussed considerat ion of operative interventi on today as well as the potential for repeat corticoste roid injections in the future. She would like to see a surgeon and was given a referral to Dr. Lai at [facility] and will call to set up an appointmen t. I am happy to see her back as needed for further care. Osteoarthr itis of knee 917813414 M17.12 [id number] Duke Dutta MD Sports Medicine, [address] [place] [address] 10/22/2019 08:02:35 10/27/2019 14:01:37 Knee pain 13077621 M25.562 Anushka is a 64-year-ol d female with left knee pain secondary to osteoarthr itis. I reviewed this diagnosis again with her today as well as discussing options for treatment including continued physical therapy, NSAIDs, corticoste roid injections , and surgery. Due to her pain she did undergo a left knee joint corticoste roid injection under ultrasound guidance today in the office. She tolerated this well without complicati on. She will ice and rest over the next week and gradually resume normal activities . I did advise she restart physical therapy at home in 7-10 days. She will plan a follow-up with me on an as-needed basis for further care. Osteoarthr itis of knee 079916310 M17.12 [id number] Dmitri Hartman MD Rheumatol luis, [address] [place] [address] 12/01/2019 07:56:33 12/01/2019 12:33:39 Osteoarthritis of knee 442134951 M17.12 X ray findings mild DJD L knee, but MRI shows complete loss cartilage lat femoral condyle and meniscal tears. .Ongoing sxs, helped by steroid injection but only transientl y.Supartz only minimally effective. Also relevant is that she had episode of urosepsis over a year ago, but not since. Will be arranging to see Dr Lai. Continue lidocaine containing cream.Try adding topical diclofenac .Has been on celebrex. It helps. May continue. Recent labs OK. Renew hydrocodon e. She has been on just one per night for past 8-10 years. Helps with sleep.She will need to get this from Primary Care in future. Inflammato ry polyarthropathy 497576166 M06.4 Prior Hx of inflammato ry arthropath y. Treated as for Sero-negat adebayo RA with SSZ etc, but off DMARD treatment since 2010. Virtually no sign of this now., though note that synovial fluid from L knee mildly inflammato ry in 2017. Doing quite well on NSAID treatment alone. . Current sx's mostly related to DJD. Follow up for inflammato ry arthritis only if new sxs arise. Chronic pain 82463570 G8 9.29 Chronic pain especially knee. Takes hydrocodon e. She has been on just one per night for past 8-10 years. Helps with sleep. Renewed.Sh e will need to get this from Primary Care in future. [id number] Marcelo Griffin Jr. MD CASTRO, [facility], OFFICE [address] [facility] [place] [address] 12/31/2019 08:45:03 12/31/2019 09:29:23 Chronic low back pain 364256204 M54.5 Continue with conservati ve measures including relative rest, stretching , heating pad, massage, celecoxib, acetaminop hen. Prescripti on for baclofen sent to pharmacy.. Reviewed risk of sedation. Encouraged use at nighttime primarily as needed. Nicotine dependence 5629 4008 F17.200 Encouraged patient to work on cutting back and consider cessation from all nicotine products. Discussed risks associated with prolonged nicotine exposure. Reviewed cessation support options available through [facility]. Recurrent urinary tract infection 791886118 N39.0 Requested submission of urine for culture. Prescripti on for cephalexin for 1 week sent to patient's pharmacy. Has scheduled follow-up with infectious disease specialist in one month. Chronic al coholism in remission 216455679 F10.21 Remains in remission. Discussed importance of maintainin g sobriety. Bipolar disorder 1630939 4 F31.9 As managed by psychiatry specialist . Continue with current meds of Latuda, and lamotrigin e Anxiety disorder 9972391 06 F41.9 As managed by psychiatry . Receiving prescripti on for alprazolam . [id number] Marcelo Griffin Jr. MD FP, [facility], OFFICE [address] [place] [address] 03/14/2020 08:38:13 03/14/2020 09:42:53 Inflammatory polyarthropathy 822463290 M06.4 Monitored by rheumatolo cande (Dr. Hartman). Continue with celecoxib. Symptoms appear stable. Has been taking stable dose of hydrocodon e at night. Reports improvemen t in quality of life. I have been asked by the patients specialist / patient to assume prescribin g of this medication . Reviewed prescribin g agreement concepts and requiremen ts. Is aware of needing regular office visits. Reviewed that patient is at higher baseline risk of misuse given past history of alcohol dependence and bipolar disorder. Reviewed potentiall y lethal medication interactio n with benzodiaze pines and opioids. Patient is in verbal agreement and will receive a copy of the prescribin g agreement to review and sign if this looks appropriat e. The patient is being prescribed opioid pain medication . The risks of opioid medication s were explained to the patient. The patient understand s and agrees to use this medication only as prescribed . I have discussed the potential side effects of the medication with the patient which include but are not limited to constipati on, drowsiness , addiction, impaired judgment (patient should NOT drive while taking these medication s) and the risk of fatal overdose. I have warned the patient that sharing opioid medication s is a felony. Prescriber registry has been reviewed. Chronic ob structive pulmonary disease 42448058 J44.9 Has Pro Air inhaler available as needed. Symptoms remain stable. Encouraged continued efforts at abstaining from smoking exposure. Chronic al coholism in remission 453887763 F10.21 Remains in remission. Discussed importance of maintainin g sobriety. Bipolar disorder 5623822 4 F31.9 As managed by psychiatry specialist . Continue with current meds of Latuda, and lamotrigin e [id number] Vira Buchanan MD , [facility], OFFICE [address] [place] [address] 05/03/2020 11:33:39 05/03/2020 12:55:01 Accidental fall 955335225 W19.XXXA no LOCno head trauma Pain of le ft ankle joint 8175396009 3577760 M25.572 unable to fully bear wtrecently quit smokeroste openia per BMD 2018agrees to xrays Normal grief reaction 27 6630657 F43.20 due to of her friend [id number] Marcelo Griffin Jr. MD , [facility], OFFICE [address] [place] [address] 05/25/2020 12:55:24 05/25/2020 17:24:50 Inflammatory polyarthropathy 141818344 M06.4 Monitored by rheumatolo gy (Dr. Hartman). Continue with celecoxib. Symptoms appear stable. Continue with hydrocodon e which has improved patient's quality of life. Denies side effects. Continue with current prescripti on and follow-up in 3 months Closed fra cture of lateral malleolus 46559055 S82.66XD As managed by orthopedic s. Using lace up splint. Bipolar disorder 6240959 4 F31.9 As managed by psychiatry specialist . Continue with current meds of Latuda, and lamotrigin e [id number] Jr. MD GLORIA Bermudez, [facility], OFFICE [address] [place] [address] 08/18/2020 16:09:15 08/19/2020 07:37:14 Inflammatory polyarthropathy 398920370 M06.4 Monitored by rheumatdarshana castellon (Dr. Hartman). Continue with celecoxib. Symptoms appear stable. Continue with hydrocodon e which has improved patient's quality of life. Denies side effects. Continue with current prescripti on and follow-up in 3 months [id number] Kip Paul MD , [facility], OFFICE [address] [place] [address] 10/14/2020 11:14:12 10/14/2020 11:29:08 Urinary tract infectious disease 12209311 N39.0 Patient instructed to push fluids, to follow up for persistent or worsening symptoms or fever or back pain. [id number] Marcelo Griffin Jr. MD , [facility], OFFICE [address] [place] [address] 11/17/2020 10:43:51 11/17/2020 12:59:00 Inflammatory polyarthropathy 912876652 M06.4 Monitored by rheumatdarshana castellon (Dr. Hartman) previously . Continue with celecoxib. Symptoms appear stable. Continue with hydrocodon e which has improved patient's quality of life. Denies side effects. Continue with current prescripti on and follow-up in 3 months Low back pain 401913010 M54.5 Chronic and intermitte ntly symptomati c. Continue with baclofen at night time as needed. Will update x ray to rule out compressio n fracture. [id number] Marcelo Griffin Jr. MD , [facility], OFFICE [address] [place] [address] 12/07/2020 16:49:41 12/08/2020 06:38:40 Urinary tract infectious disease 12324802 N39.0 Patient instructed to push fluids, to follow up for persistent or worsening symptoms or fever or back pain. [id number] Marcelo Griffin Jr. MD , [facility], OFFICE [address] [place] [address] 02/28/2021 07:57:17 02/28/2021 08:25:09 Chronic obstructive pulmonary disease 17328039 J44.9 Has Pro Air inhaler available as needed. Symptoms remain stable. Encouraged continued efforts at abstaining from smoking exposure. Inflammato ry polyarthropathy 606273992 M06.4 Monitored by rheumatdarshana castellon (Dr. Hartman) previously . Continue with celecoxib. Symptoms appear stable. Continue with hydrocodon e which has improved patient's quality of life. Denies side effects. Continue with current prescripti on and follow-up in 3 months [id number] Claudia Flannery MD , [facility], OFFICE [address] [place] [address] 03/15/2021 13:20:13 03/15/2021 13:55:03 Dysuria 05672228 R30.9 Discussed UTI prevention strategies including pre- and post-coita l voiding, wiping front to back, and use of cranberry supplement s or juice. Empiric treatment with antibiotic s on basis of history and UA reviewed. Culture pending. I discussed need to return to office if symptoms do not resolve or if develops fever, vomiting, back or abdominal pain. [id number] Kip Paul MD , [facility], OFFICE [address] [place] [address] 03/24/2021 14:23:54 03/24/2021 16:04:32 Urinary tract infectious disease 51169608 N39.0 Persistent . Last culture neg but felt better after ceftriaxon e. U/A actually worse. Reculture, cefixime [id number] Marcelo Griffin Jr. MD , [facility], OFFICE [address] [place] [address] 04/18/2021 13:42:45 04/18/2021 14:25:40 Urinary tract infectious disease 77882223 N39.0 Encouraged continued efforts at increased hydration. Reviewed red flag symptoms (worsening fever, flank pain, intractabl e vomiting) and when to seek emergency care. Discussed importance of taking entire course of antibiotic s. Reviewed risks and benefits of medication s. Reports improvemen t with antibiotic . Nausea 650583825 R11.0 Ongoing along with low energy level since March 20. Worse in the AM.Plan to manage symptoms with zofran. Arrange for further labs, and ultrasound . Refer to GI. Muscle pain 51868938 M79 .10 Reviewed ER labs negative for tick born illness. WIll obtain rheumatolo gic work up. Fatigue 61758974 R53.83 Will order sleep study at follow up if work up is unremarkab le. Bipolar disorder 5959944 4 F31.9 More symptomati c. As managed by psychiatry specialist . Continue with current meds of Latuda, and lamotrigin e. [id number] Jr. MD GLORIA Bermudez, [facility], OFFICE [address] [facility] [place] [address] 05/31/2021 08:08:10 05/31/2021 09:19:29 Adult health examination 407430050 Z00.00 see Risk Assessment and Lifestyle Change Counseling section above Counseling 531400412 Z71 .9 including cardiovasc ular risk reduction counseling Depression screening 171 878230 Z13.31 depression screening tool administer ed, entered into emr, scored and discussed, time greater than 7.5 minutes Screening for alcohol abuse 666505577 Z13.39 Inflammato ry polyarthropathy 224078832 M06.4 Monitored by rheumatolo gy (Dr. Hartman) previously . Continue with celecoxib. Symptoms appear stable. Continue with hydrocodon e which has improved patient's quality of life. Denies side effects. Continue with current prescripti on and follow-up in 3 months Low back pain 265513956 M54.5 Chronic and intermitte ntly symptomati c. Continue with baclofen at night time as needed. Anxiety disorder 7287891 06 F41.9 As managed by psychiatry . Receiving prescripti on for alprazolam . Bipolar disorder 8085088 4 F31.9 More symptomati c. As managed by psychiatry specialist . Continue with current meds of Latuda, and lamotrigin e. Pursuing TMS treatment soon. Chronic al coholism in remission 764623596 F10.21 Remains in remission. Discussed importance of maintainin g sobriety. Chronic ob structive pulmonary disease 84516388 J44.9 Has Pro Air inhaler available as needed. Symptoms remain stable. Encouraged continued efforts at abstaining from smoking exposure. Insomnia 006690716 G47.0 0 As managed by psychiatry . Currently receiving temazepam and trazodone Screening mammography 24 127096 Z12.31 Active or passive immunization 456597758 Z23 Nicotine dependence 5629 4008 F17.200 Encouraged patient to work on cutting back and consider cessation from all nicotine products. Discussed risks associated with prolonged nicotine exposure. Reviewed cessation support options available through [facility]. [id number] Jr. MD GLORIA Bermudez, [facility], OFFICE [address] [place] [address] 09/07/2021 10:39:30 09/07/2021 11:01:11 Anxiety disorder 712540027 F41.9 As managed by psychiatry . Receiving prescripti on for alprazolam . Bipolar disorder 7194674 4 F31.9 More symptomati c. As managed by psychiatry specialist . Continue with current meds of Latuda, and lamotrigin e. Pursuing TMS treatment soon. Chronic ob structive pulmonary disease 78566487 J44.9 Has Pro Air inhaler available as needed. Symptoms remain stable. Encouraged continued efforts at abstaining from smoking exposure. Inflammato ry polyarthropathy 913374454 M06.4 Monitored by rheumatdarshana castellon (Dr. Hartman) previously . Continue with celecoxib. Symptoms appear stable. Continue with hydrocodon e which has improved patient's quality of life. Denies side effects. Continue with current prescripti on and follow-up in 3 months Long-term drug therapy 699231801 Z79.899 Nausea and vomiting 1693 1999 R11.2 [id number] Marcelo Griffin Jr. , [facility], OFFICE [address] [place] [address] 12/07/2021 07:53:49 12/07/2021 08:35:04 Inflammatory polyarthropathy 870794966 M06.4 Monitored by caitie castellon (Dr. Hartman) previously . Continue with celecoxib. Symptoms appear stable. Continue with hydrocodon e which has improved patient's quality of life. Denies side effects. Continue with current prescripti on and follow-up in 3 months. [facility] contract up dated today. Bipolar disorder 3932834 4 F31.9 More symptomati c. As managed by psychiatry specialist . Continue with current meds of Latuda, and lamotrigin e. Pursuing TMS treatment soon. Anxiety disorder 06 F41.9 As managed by psychiatry . Receiving prescripti on for alprazolam . Chronic ob structive pulmonary disease 40408114 J44.9 Has Pro Air inhaler available as needed. Symptoms remain stable. Encouraged continued efforts at abstaining from smoking exposure. Long-term drug therapy 839824235 Z79.899 Ex-smoker 7361340 Z87.89 1 Unintentio nal weight loss 715152244 R63.4 Has been evaluated by GI. Appears to be related to depression and poor appetite. Plan to up date lung cancer screening. [id number] Mario Saavedra PA-C , [facility], OFFICE [address] [facility] [place] [address] 03/08/2022 07:51:56 03/08/2022 08:17:52 Inflammatory polyarthropathy 528590553 M06.4 Monitored by rheumatolo gy (Dr. Hartman) previously . Continue with celecoxib. Symptoms appear stable. Continue with hydrocodon e which has improved patient's quality of life. Denies side effects. Continue with current prescripti on and follow-up in 3 months. [facility] contract up dated today. Bipolar disorder 4311708 4 F31.9 More symptomati c. As managed by psychiatry specialist . Continue with current meds of Latuda, and lamotrigin e. Anxiety disorder 9334809 06 F41.9 As managed by psychiatry . Receiving prescripti on for alprazolam . Chronic ob structive pulmonary disease 91556665 J44.9 Has Pro Air inhaler available as needed. Symptoms remain stable. Encouraged continued efforts at abstaining from smoking exposure. [id number] Kita Nelson . , [facility], OFFICE [address] [place] [address] 04/01/2022 09:12:30 04/02/2022 10:39:42 COVID-19 402816568 U07.1 Will refer for monoclonal antibodies as patient does not wish to hold any daily medication s for initiation of paxlovid.W ill RTO for symptoms of dyspnea or SOB, worsening fevers or symptoms.C ontinue with supportive care. [id number] Marcelo Griffin Jr. MD , [facility], OFFICE [address] [place] [address] 06/12/2022 08:08:32 06/12/2022 08:55:15 Adult health examination [id number] Z00.00 see Risk Assessment and Lifestyle Change Counseling section above. Flu vaccine up dated today. Discussed availabili ty of Shingrix and bivalent COVID vaccine. Due for next LDCT scan for lung cancer screening in January 2023. Counseling 149909599 Z71 .9 Including cardiovasc ular risk reduction counseling Depression screening 171 632219 Z13.31 Depression screening tool administer ed, entered into emr, scored and discussed, time greater than 7.5 minutes Screening for alcohol abuse 544820996 Z13.39 Inflammato ry polyarthropathy 286032635 M06.4 Monitored by rheumatdarshana castellon (Dr. Hartman) previously . Continue with celecoxib. Symptoms appear stable. Continue with hydrocodon e which has improved patient's quality of life. Denies side effects. Continue with current prescripti on and follow-up in 3 months. CSRP contract up dated. Bipolar disorder 4002163 4 F31.9 More symptomati c. As managed by psychiatry specialist . Continue with current meds of Latuda, mirtazapin e, and lamotrigin e. Anxiety disorder F41.9 As managed by psychiatry . Receiving prescripti on for alprazolam . Chronic ob structive pulmonary disease 99851362 J44.9 Has Pro Air inhaler available as needed. Symptoms remain stable. Encouraged continued efforts at abstaining from smoking exposure. Chronic al coholism in remission 912848124 F10.21 Remains in remission. Discussed importance of maintainin g sobriety. Administra tion of influenza vaccine 66879875 Z23 [id number] Marcelo Griffin Jr. MD , [facility], OFF[address] [place] [address] 08/28/2022 07:58:36 08/28/2022 08:23:14 Inflammatory polyarthropathy 520535875 M06.4 Monitored by rheumatdarshana castellon (Dr. Hartman) previously . Continue with celecoxib. Symptoms appear stable. Continue with hydrocodon e which has improved patient's quality of life. Denies side effects. Continue with current prescripti on and follow-up in 3 months. CSRP contract up dated. Bipolar disorder 6180120 4 F31.9 More symptomati c. As managed by psychiatry specialist . Continue with current meds of Latuda, mirtazapin e, and lamotrigin e. Anxiety disorder F41.9 As managed by psychiatry . Receiving prescripti on for alprazolam . Chronic ob structive pulmonary disease 98543880 J44.9 Has Pro Air inhaler available as needed. Symptoms remain stable. Encouraged continued efforts at abstaining from smoking exposure. Nausea 498875831 R11.0 Ongoing along with low energy level since March 20. Worse in the AM.Plan to manage symptoms with zofran. Arrange for further labs, and ultrasound . Refer to GI. [id number] Claudia Flannery MD , [facility], OFFICE [address] [facility] [place] [address] 11/01/2022 10:35:24 11/01/2022 12:40:18 Painful urging to urinate 16448793 R30.0 Patient instructed to push fluids, to follow up for persistent or worsening symptoms or fever or back pain. Elevated blood-pressure reading without diagnosis of hypertension 418901229 R03.0 High BP readings during UTI shadow book appt.180/1 20 and 176/104Pt. denies SOB, CP, HANADSome of this may be due to pt. anxiety - which she reportsWil l start Lisinopril 10mgShe has appt. scheduled with PCP in less than weeksUrged her to keep that appt. so that they can f/u on thisAdvise d to go to ED if CP, SOB, TABARES, NLow salt diet and drink plenty of water Urinary tr act infectious disease 02388058 N39.0 UA positive for UTIWill prescribe abx as aboveEncou raged continued efforts at increased hydration. Reviewed red flag symptoms (worsening fever, flank pain, intractabl e vomiting) and when to seek emergency care. Discussed importance of taking entire course of antibiotic s. Reviewed risks and benefits of medication s.Urine Culture ordered [id number] Jr. MD GLORIA Bermudez, [facility], OFFICE [address] [facility] [place] [address] 11/15/2022 09:51:28 11/15/2022 10:08:55 Elevated blood-pressure reading without diagnosis of hypertension 589676279 R03.0 Your blood pressure is not at goal.Pleas e follow up with PCP next weekPlease call with any concerning side effects or symptoms.D iscuss lifestyle changes: DASH dietLow sodium 2300 mg per dayExercis eRecommend ed alcohol intake [id number] Jr. MD GLORIA Bermudez, [facility], OFFICE [address] [facility] [place] [address] 12/13/2022 09:38:06 12/13/2022 10:21:47 Inflammatory polyarthropathy 962763984 M06.4 Monitored by rheumatolo cande (Dr. Hartman) previously . Continue with celecoxib. Symptoms appear stable. Continue with hydrocodon e which has improved patient's quality of life. Denies side effects. Continue with current prescripti on and follow-up in 3 months. [facility] contract up dated. Bipolar disorder 2135684 4 F31.9 More symptomati c. As managed by psychiatry specialist . Continue with current meds of Latuda, mirtazapin e, and lamotrigin e. Chronic ob structive pulmonary disease 09591640 J44.9 Has Pro Air inhaler available as needed. Symptoms remain stable. Encouraged continued efforts at abstaining from smoking exposure. Nausea 031320830 R11.0 Ongoing along with low energy level since March 20. Worse in the AM.Plan to manage symptoms with zofran. Arrange for further labs, and ultrasound . Refer to GI. Essential hypertension 85300137 I10 Above goal but improving. Plan to increase dose of lisinopril . Requested BP clinic visit in 4 weeks. BP goal <130/80. Needs BMP checked within next 4 weeks [id number] Marcelo Griffin Jr. MD , [facility], OFFICE [address] [place] [address] 01/03/2023 14:37:36 01/04/2023 07:11:40 Anxiety disorder 939882616 F41.9 As managed by psychiatry . Receiving prescripti on for alprazolam . Bipolar disorder 9325771 4 F31.9 More symptomati c. As managed by psychiatry specialist . Continue with current meds of Latuda, mirtazapin e, quetiapine , and lamotrigin e. Scheduled for ECT as managed by Dr. Raymond. Chronic ob structive pulmonary disease 53337029 J44.9 Has Pro Air inhaler available as needed. Symptoms remain stable. Encouraged continued efforts at abstaining from smoking exposure. Preoperati ve cardiovascular examination 311337258 Z01.810 Patient is at appropriat e risk for proposed procedure. No further workup indicated at this time. Benign ess ential hypertension 0500026 I10 Controlled . Blood pressure goal is < 130/80. Continue current dose of lisinopril . [id number] Marcelo Griffin Jr. MD , [facility], OFF[address] [place] [address] 03/12/2023 07:51:26 03/12/2023 08:17:09 Essential hypertension 81344321 I10 Above goal but improving. Plan to increase dose of lisinopril . Requested BP clinic visit in 4 weeks. BP goal <130/80. Inflammato ry polyarthropathy 842155796 M06.4 Monitored by rheumatolo gy (Dr. Hartman) previously . Continue with celecoxib. Symptoms appear stable. Continue with hydrocodon e which has improved patient's quality of life. Denies side effects. Continue with current prescripti on and follow-up in 3 months. [facility] contract up dated. Bipolar disorder 3850491 4 F31.9 More symptomati c. As managed by psychiatry specialist . Continue with current meds of Latuda, mirtazapin e, and lamotrigin e. Chronic ob structive pulmonary disease 30253936 J44.9 Has Pro Air inhaler available as needed. Symptoms remain stable. Encouraged continued efforts at abstaining from smoking exposure. Nausea 281410453 R11.0 [id number] Marcelo Griffin Jr. MD , [facility], OFFICE [address] [facility] [place] [address] 05/15/2023 10:39:13 05/15/2023 12:17:06 Increased frequency of urination 160502434 R35.0 Plan to initiate prescripti on for macrobid. Sent for culture given potential for antibiotic resistance . Encouraged efforts at increased hydration. Reviewed red flag symptoms and when to seek emergency care. [id number] Barbara Crow MD , [facility], OFF[address] [place] [address] 05/20/2023 09:00:38 05/20/2023 09:32:22 Dysuria 41433055 R30.0 Pt with recurrent UTIs, follows with urology comes back in for urinary sxs which returned 2 days ago.Was seen by Dr. Griffin 05/15/23 and given macrobid. Final urine cx from 05/15/23 showed mixed pérez. Is still taking the macrobid and her daily trimethopr im. Has a pessary.U/ A today ketones only; urine cx sent again.Has urology appt this Saturday in 2 days.Advis ed stop macrobid and continue usual regimen as per urology.Ur ology note 04/2022 reviewed.A ny acutely worsening sxs, please RTO or seek medical attention. Stay well hydrated. Recurrent urinary tract infection 430696633 N39.0 [id number] Marcelo Griffin Jr. FP, [facility], OFFICE [address] [facility] [place] [address] 06/18/2023 08:20:50 06/18/2023 10:26:42 Adult health examination 112658138 Z00.00 see Risk Assessment and Lifestyle Change Counseling section above. Flu vaccine up dated today. Discussed availabili ty of bivalent COVID vaccine. Due for next LDCT scan for lung cancer screening in 2023. Depression screening 171 295877 Z13.31 depression screening tool administer ed Screening for alcohol abuse 694100501 Z13.39 Alcohol use screening tool administer ed Chronic ob structive pulmonary disease 39731096 J44.9 Has Pro Air inhaler available as needed. Symptoms remain stable. Encouraged continued efforts at abstaining from smoking exposure. Reviewed risks and benefits of inhaled corticoste roid. Reviewed expected improvemen t is delayed but should occur over the next 4-5 days. Encouraged rinsing with water and spitting after each use to avoid possible complicati on of thrush. Wishes to initiate. Inflammato ry polyarthropathy 205306804 M06.4 Monitored by rheumatolo gy (Dr. Hartman) previously . Continue with celecoxib. Symptoms appear stable. Continue with hydrocodon e which has improved patient's quality of life. Denies side effects. Continue with current prescripti on and follow-up in 3 months. CSRP contract up dated. Anxiety disorder 0982634 06 F41.9 As managed by psychiatry . Receiving prescripti on for alprazolam . Bipolar disorder 5769085 4 F31.9 More symptomati c. As managed by psychiatry specialist . Continue with current meds of Latuda, mirtazapin e, and lamotrigin e. Nausea 163663402 R11.0 Active or passive immunization 027406304 Z23 Long-term drug therapy 790351457 Z79.899 Chronic al coholism in remission 025743953 F10.21 Remains in remission. Discussed importance of maintainin g sobriety. Counseled by member of primary health care team 115212550 Z71.9 Today we discussed ways to reduce your 10-year cardiovasc ular disease risk. Things that decrease risk for cardiovasc ular events include eating a diet high in fiber (fruits and vegetables ) and low in simple carbohydra alexx (bread, rice, pasta, alcohol, potatoes), decreasing processed foods, limiting juice and alcohol, limiting saturated fats (butter, ice cream, and cheeses), and adding regular daily activity. Having blood pressure that is <130/80. Having well controlled cholestero l (LDL and triglyceri tomeka) by eating a healthy diet and taking medication s when necessary. Managing daily stress with meditation or yoga. Depending on your other cardiovasc ular risks your practition er may recommend taking daily aspirin. [id number] Jr. MD GLORIA Bermudez, [facility], OFF[address] [place] [address] 09/19/2023 07:50:57 09/19/2023 08:26:00 Chronic obstructive pulmonary disease 71953864 J44.9 Has Pro Air inhaler available as needed. Symptoms remain stable. Inflammato ry polyarthropathy 442772096 M06.4 Monitored by rheumatolo gy (Dr. Hartman) previously . Continue with celecoxib. Symptoms appear stable. Continue with hydrocodon e which has improved patient's quality of life. Denies side effects. Continue with current prescripti on and follow-up in 3 months. Bipolar disorder 8922869 4 F31.9 More symptomati c. As managed by psychiatry specialist . Continue with current meds of Latuda, mirtazapin e, and lamotrigin e. [id number] Jr. MD GLORIA Bermudez, [facility], OFF[address] [place] [address] 01/15/2024 07:53:01 01/15/2024 08:33:14 Long-term current use of drug therapy 586529857 Z79.899 Former hea vy tobacco smoker 4595893360 05815 Z87.891 Chronic ob structive pulmonary disease 88170251 J44.9 Has Pro Air inhaler available as needed. Symptoms remain stable. Bipolar disorder 0812552 4 F31.9 More symptomati c. As managed by psychiatry specialist . Continue with current meds of Latuda, mirtazapin e, and lamotrigin e. Inflammato ry polyarthropathy 165087103 M06.4 Monitored by rheumatdarshana castellon (Dr. Hartman) previously . Continue with celecoxib. Symptoms appear stable. Continue with hydrocodon e which has improved patient's quality of life. Denies side effects. Continue with current prescripti on and follow-up in 4 - 5 months. [id number] Marcelo Griffin Jr. MD , [facility], OFF[address] [place] [address] 03/03/2024 09:20:58 03/03/2024 10:07:35 Dysuria 04968452 R30.0 Patient with urinary symptoms. History and exam and urinalysis consistent with UTI. No symptoms of pyelonephr itis. Low risk of . Will send urine for culture. Discussed supportive and preventive measures. Patient instructed to follow up if not better or with new symptoms. Acute pyelonephritis 366 76082 N10 Reviewed care instructio ns. Encouraged drinking lots of fluids. Use of acetaminop hen as needed for pain or fever. Reviewed red flag symptoms and when to seek emergency care. [id number] Marcelo Griffin Jr. MD , [facility], OFF[address] [place] [address] 06/16/2024 07:55:09 06/16/2024 09:03:28 Bipolar disorder 74605770 F31.9 More symptomati c. As managed by psychiatry specialist . Continue with current meds of Latuda, mirtazapin e, and lamotrigin e. Inflammato ry polyarthropathy 860357855 M06.4 Monitored by rheumatdarshana castellon (Dr. Hartman) previously . Continue with celecoxib. Symptoms appear stable. Continue with hydrocodon e which has improved patient's quality of life. Denies side effects. Continue with current prescripti on and follow-up in 4 - 5 months. If having problems obtaining medication would consider changing to 7.5 mg dose of hydrocodon e or changing to tramadol. Chronic ob structive pulmonary disease 57737993 J44.9 Has Pro Air inhaler available as needed. Symptoms remain stable. Screening mammography 24 268525 Z12.31 Active or passive immunization 723275765 Z23 Benign ess ential hypertension 6347488 I10 Elevated. Blood pressure goal is < 130/80. Plan to discontinu e lisinopril due to side effect. Reviewed risks and benefits of amlodipine including risk of edema. Wishes to initiate. Request nurse BP clinic visit be scheduled in 3 weeks. Would recommend increasing amlodipine up to 10 mg daily dose if above goal. [id number] Marcelo Griffin Jr. MD , [facility], OFFICE [address] [place] [address] 07/07/2024 09:50:58 07/07/2024 10:41:01 Benign essential hypertension 4323520 I10 Patient is currently taking amlodipine 5mg QAM and denies side effects/co ncerns, sob, cp, tabares, n/v, swelling is feet/ankle s. Patient has not been monitoring her BP at home, does not have a home BP cuff, and rx sent for one. Average BP during visit: 157/89 (156/89, 168/86, 151/92). Patient BP is above goal of <130/80. As advised by MR from 06/16/24 OV, patient to increase her amlodipine to 10mg QD and return in 2-3wks for BP fu/BMP. Patient agreeable to plan. [id number] Jr. MD GLORIA Bermudez, [facility], OFFICE [address] [place] [address] 07/22/2024 10:04:18 07/22/2024 11:15:54 Benign essential hypertension 9273218 I10 [id number] Jr. MD GLORIA Bermudez, [facility], OFFICE [address] [place] [address] 10/19/2024 07:49:08 10/19/2024 08:42:38 Benign essential hypertension 0657163 I10 Controlled . Blood pressure goal is < 130/80. Continue current dose of amlodipine . Bipolar disorder 6175384 4 F31.9 More symptomati c. As managed by psychiatry specialist . Continue with current meds of Latuda, mirtazapin e, and lamotrigin e. Inflammato ry polyarthropathy 964668376 M06.4 Monitored by rheumatolo gy (Dr. Hartman) previously . Continue with celecoxib. Symptoms appear stable. Continue with hydrocodon e which has improved patient's quality of life. Denies side effects. Continue with current prescripti on and follow-up in 4 - 5 months. If having problems obtaining medication would consider changing to 7.5 mg dose of hydrocodon e or changing to tramadol. Chronic ob structive pulmonary disease 95097225 J44.9 Has Pro Air inhaler available as needed. Symptoms remain stable. Cellulitis of face 2001 L03.211 Swelling and tenderness on the left side of the face likely due to facial cellulitis , possibly from a tooth abscess or sinus infection. Minimal improvemen t with amoxicilli n. - Prescribed Augmentin to replace amoxicilli n. Instructed to discontinu e amoxicilli n once Augmentin is started. - Sent prescripti on for Augmentin to [facility]. - Advised follow-up with the dentist on October 27 to assess the tooth abscess. - Instructed to monitor for improvemen t after two doses of Augmentin and report if swelling does not decrease or if symptoms worsen. [id number] Mario Silveira MD , [facility], OFFICE [address] [place] [address] 01/08/2025 10:37:22 01/08/2025 13:41:22 Dysuria 75670062 R30.0 Patient with urinary symptoms.H istory and exam and urinalysis consistent with UTI.No symptoms of pyelonephr itis.Will send urine for culture.Di scussed supportive and preventive measures.P atient instructed to follow up if not better or with new symptoms. Acute urin ciaran tract infection 433590331 N39.0 Acute UTI confirmed by urinalysis . Though I typically do not use Macrobid for patients >65 y/o, start Macrobid 100 mg twice daily for 7 days due to prophylact ic trimethopr im use and recent amoxicilli n exposure. Avoid Cipro due to side effect risks and allergy to Levaquin. Order urine culture to identify causative bacteria. Continue Macrobid until contacted with culture results and further instructio ns. Discussed potential antibiotic change based on culture results. Advised on signs of complicati ons and when to seek urgent care if experienci ng fever, nausea, vomiting, or severe flank/back pain. [id number] MD GLORIA Ruby, [facility], OFFICE [address] [place] [address] 01/12/2025 09:21:54 01/12/2025 17:08:54 Acute urinary tract infection 523402529 N39.0 UTI symptoms developed 01/07/2025S he was having pain with urination, urgency and increased frequency. She was seen 01/08/2025 and prescribed nitrofuran toinHer symptoms are less since taking macrobid but still having some urgency and frequency 01/08/2025 Urine culture positive for UTI. Resistant to nitrofuran toin which was prescribed . Also resistant to bactrim which she takes daily for prevention . Susceptibl e to ciprofloxa nikole and levaquin but she is allergic to levaquin so ciprofloxa nikole is not a good option UA today shows Leuks 2+ and 1+ ketonesLow fever today per 99.2F temp P: Discussed that since her UTI symptoms are improving but not completely resolved and urine culture results indicated nitrofuran toin may not be effective, she should stop nitrofuran toin and take 1 dose of fosfomycin Advised to call if symptoms not improved in 2-3 daysIncrea se water intake Benign ess ential hypertension 0640665 I10 A: BP goal < 130/80Taki ng 10 mg amlodipine BP today on recheck by provider 132/82 is close to goal P: Continue amlodipine .Follow these steps to achieve a healthy blood pressure:D OSMAR diet - handout providedEx ercise regularly (aim for 30 minutes of aerobic exercise a day)Consid er adopting the Mediterran gabriela DietLimit alcohol useLimit saltManage your stress For detailed informatio n on lifestyle measures see the [employer] n website link at:https:/ /www.heart .org/en/he alth-topic s/high-blo od-pressur e/changes- you-can-laura campbell-to-kriss ge-high-bl ood-pressu re [id number] Kip Paul MD , [facility], OFFICE [address] [facility] [place] [address] 01/27/2025 13:26:30 01/27/2025 14:19:45 Dysuria 44036528 R30.0 Recurrent urinary tract infection 389033740 N39.0 last inf proteus, not tested against fosfomycin . Is sens to cipro, had achilles pain with levaquin but never tried cipro--talya l try [id number] Digna Hamilton MD FP, [facility], OFFICE [address] [place] [address] 02/02/2025 07:53:29 02/02/2025 09:17:15 Benign essential hypertension 9458150 I10 B/P goal <130/80, today 132/88 and 128/82.- Continue with amlodipine . Inflammato ry polyarthropathy 707864992 M06.4 Chronic arthritis pain in left foot. Managed with infrequent hydrocodon e use. Prefers [facility].- Refill hydrocodon e at [facility].- Follow up in four months. Acute urin ciaran tract infection 256831983 N39.0 Urinary symptoms improved but was not treated in ED because UA was normal. Positive urine culture 01/27/2025 was started on Cipro, however she developed achilles pain and D/Cd cipro leaving IV antibiotic s as only treatment option. Was sent to ED for IV antibiotic s and was not treated. Urinary symptoms are better. Ciprofloxa nikole allergy limits options. Allergic reaction to ciprofloxa nikole with soreness. Discussed tendon rupture risks. They stopped exercising to prevent rupture. Treatment and Prevention of Urinary Tract Infections Hydration: -Drink plenty of fluids, especially water, throughout the day. -Aim for 8-10 glasses of water daily. -Urinate frequently to flush out bacteria. -Cranberry juice or supplement s: Some studies suggest that cranberry may help prevent urine tract infections by inhibiting bacterial adhesion to the bladder bella. Probiotics : Probiotics may help restore the balance of healthy bacteria in the urinary tract. Hygiene: -Wipe from front to back after using the bathroom. -Wash your hands thoroughly with soap and water after using the bathroom. -Take showers instead of baths. -Wear cotton underwear and breathable clothing. Sexual Practices: -Urinate before and after sexual intercours e. -Use condoms during sexual activity.- Avoid ciprofloxa nikole.- Advise to report recurrence of symptoms.- Arrange urine sample collection if symptoms recur. Anxiety disorder 9848733 06 F41.9 Anxiety may elevate blood pressure during visits. BP was 128/82 post-relax ation.- Monitor blood pressure during follow-ups .- lorazepam as needed. [id number] Digna Hamilton MD , [facility], OFFICE [address] [place] [address] 03/09/2025 11:49:29 03/09/2025 14:19:48 Post-discharge follow-up 061614770 Z09 Patient presents for TCMS visit. Admitted to: [facility] Admission dates: 02/21/2025- Reason for admission: Dyspnea, wheezing, SOB, bilateral leg pain, weakness, and Non-produc tive cough. Hospital course / testing: SOB when ambulating . Chest x-ray with, Retro-card iac opacity possibly scarring versus atelectasi s versus pneumonia. Flu/RSV/CO VID-19 negative. UTI symptoms noted (1 week of urinary hesitancy, frequency and urinating low volumes). UA noted 42 WBCs, 3+ leukocytes and negative nitrates. Urine culture with mixed urogenital pérez. EKG normal. IV fluids. Summary also notes patient met criteria for moderate malnutriti on. Discharge instructio ns / changes / follow up / testing: Patient has been started and d/c home on an albuterol inhaler, Breo Ellipta and cefpodoxim e 200 mg every 12 hours x3 days. A referral to pulmonolog y and recommenda tion to obtain PFTs was made. Since discharge patient reports- Diagnosis: Z09 Encounter for follow-up examinatio n after completed treatment for conditions other than malignant neoplasm- Assessment : Follow-up visit after hospitaliz ation for post-viral bronchitis .- Plan: Reviewed hospital course; confirmed discharge instructio ns; emphasized importance of pulmonolog y visit on 03 11 and potential pulmonary function testing.- Lifestyle measures: Continue adequate hydration, balanced nutrition with Ensure as tolerated. - Referrals: Pulmonolog y appointmen t already scheduled. - Follow up: Routine primary care visit scheduled for May; sooner if worsening symptoms. Benign ess ential hypertension [id number] I10 - Diagnosis: I10 Essential primary hypertensi onB/P goal <130/80, today 118/66 .- Continue with amlodipine .- Assessment : Blood pressure well controlled at 118 66.- Plan: Continue current regimen.- Medication s supplement s: Continue amlodipine 5 mg daily (dose per existing script).- Lifestyle measures: Maintain low-sodium diet discussed at previous visits.- Follow up: Re-check BP at next routine appointmen t. Chronic ob structive pulmonary disease [id number] J44.9 - Diagnosis: J44.9 Chronic obstructiv e pulmonary disease, unspecifie d- Assessment : Persistent dyspnea post viral illness with clear lungs at rest, uses Breo daily and albuterol approximat dayan once per day.- Plan: Discussed proper inhaler technique; advised to track rescue inhaler use; will await pulmonolog y recommenda tions regarding potential addition of nebulizer or alternativ e inhaler.- Ordered diagnostic tests: Peak-flow performed in office; no additional testing ordered today.- Medication s supplement s: Continue Breo Ellipta one puff daily; continue albuterol MDI two puffs every four to six hours as needed.- Lifestyle measures: Avoid heat and poor air quality; use cooling centers as needed; maintain fans and cold showers at home.- Referrals: Pulmonolog y visit confirmed. - Follow up: Contact clinic if rescue inhaler use exceeds four times daily or if nocturnal symptoms develop. Inflammato ry polyarthropathy [id number] M06.4 Chronic arthritis pain in left foot. Managed with infrequent hydrocodon e use. Prefers [facility].- Refill hydrocodon e at [facility].- Follow up in four months. Anxiety disorder [id number] F41.9 - Diagnosis: F41.9 Anxiety disorder, unspecifie d- Assessment : Significan t situationa l anxiety noted during visit.- Plan: Reinforced breathing techniques ; encouraged discussing anxiety triggers at next mental health appointmen t; can use alprazolam sparingly as prescribed .- Medication s supplement s: Continue alprazolam 0.25 mg as needed for acute anxiety.- Lifestyle measures: Practice relaxation methods; avoid caffeine excess.- Referrals: Consider behavioral therapy referral if anxiety escalates; patient agreeable. - Follow up: Reassess anxiety at May visit or sooner if needed. Acute bronchitis [id number] J20.8 - Diagnosis: J20.8 Acute bronchitis due to other specified organisms (post-madhavi l)- Assessment : Symptoms improving but residual weakness and appetite loss.- Plan: Monitor for recurrence of cough, fever or increased sputum; no antibiotic s indicated presently. - Medication s supplement s: Continue supportive care only.- Lifestyle measures: Rest, hydration, gradual activity as tolerated. - Follow up: Return sooner if respirator y symptoms worsen. Bipolar disorder [id number] F31.9 - Diagnosis: F31.9 Bipolar disorder, unspecifie d- Assessment : Mood stable on present regimen; patient reports anxiety but no mood swings.- Plan: Continue lamotrigin e, lurasidone , mirtazapin e, trazodone as prescribed ; monitor for side effects.- Medication s supplement s: Refill celecoxib requested, sent ninety-day supply to [facility]; no other psych medication changes.- Lifestyle measures: Encourage regular meals and sleep hygiene.- Follow up: Routine psychiatri c follow-up per jyothi serrano schedule. Health Concerns Section Related Observation LastModified by Organization Detai ls LastModified Time None Recorded Concern Status LastModified by Organization Details LastModified Time None Recorded Advance Directives Directive None Recorded Payers Insurance Date Sequence Insurance Name Policy Number Policy Desai Covered Member ID Desai Member ID Guarantor Name 06/16/2024 2 [facility] (O) [id number] M B Jaswinderlow [id number] Bhumi Alex 06/16/2024 1 [facility] [id number] M B Dicklow [id number] Bhumi Reveles Dicklow 04/07/2025 2 [facility] [id number] M B Dicklow [id number] Bhumi Reveles Dicklow 02/23/2025 1 MEDICARE B-[place]: [facility] [employer] Marley Alex [id number] Bhumi Alex Notes Date Note Type Note Provider Name and Address Organization Details Recorded Time 01/08/2025 text/html Urinary FrequencyReported by PatientHPIFor symptoms, patient reportssymptoms began 1 days ago,urinary frequency,burning, andurgency.ROS as noted in the HPI Patient informed and consents to use of AI assisted recording to improve documentation of visit 69 y/o with a history of recurrent UTIs presents with symptoms of a UTI that started yesterday morning. She initially tried to ignore the symptoms hoping they would resolve on her own. The most bothersome symptom is burning during urination. She also notes urgency even when she is unable to pass any urine. She denies hematuria, fever, chills, and flank pain, but reports lower abdominal discomfort.The patient's last UTI in February 2024 was caused by Serratia marcescens and was treated with cefpodoxime. She has an allergy to Levaquin and has recently taken amoxicillin for dental work. She is currently on trimethoprim as a preventive measure for UTIs. UA today was positive for 1+ ketones, trace blood, nit, leuks 2+ MINDY Pablo [address] [place], [phone], [facility] 01/10/2025 13:24:37 01/12/2025 text/html ROS as noted in the HPI UTI symptoms developed 01/07/2025She was having pain with urination, urgency and increased frequency. She was seen 01/08/2025 and prescribed nitrofurantoinHer symptoms are less since taking macrobid but still having some urgency and frequency 01/08/2025 Urine culture positive for UTI. Resistant to nitrofurantoin which was prescribed. Also resistant to bactrim which she takes daily for prevention. Susceptible to ciprofloxacin and levaquin but she is allergic to levaquin so ciprofloxacin is not a good option BHARATH Ren [address] [place], [phone], [facility] 01/12/2025 09:50:45 01/27/2025 text/html Urinary FrequencyReported by PatientHPIFor symptoms, patient reportssymptoms began 1 days ago,urinary frequency,burning,urge ncy, andfrequent previous uti.fosfomycin felt better for a day or so, then sx recurred. Proteus mirabilis per latest culture. Kip Paul MD [address] [place], [phone], [facility] 01/27/2025 14:11:47 02/02/2025 text/html ROS as noted in the HPI Patient informed and consents to use of AI assisted recording to transcribe notes and improve documentation of visit. F/Urecurrent UTIs Was not treated in ED 01/29 The patient presents today with resolution of urinary symptoms and requests a medication refill for arthritis pain management. The patient initially sought treatment for urinary symptoms in the emergency room, a positive culture was noted in office and was started on cipro, however the patient developed achilles tendon pain and stopped cipro, but antibiotics were not provided. They currently describe the urinary symptoms as 'all right' but are skeptical about resolution after only three doses of medication. They request a refill of hydrocodone for arthritis pain management, which they use infrequently, taking one tablet twice a day as needed. The pain is primarily in the left foot, and the medication is effective. 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 They have an allergy to Cipro, which previously caused soreness and was discontinued to avoid tendon rupture. They have not been exercising due to the soreness but plan to resume once it subsides.They mention their diet is not great and they lack appetite, which may contribute to low protein levels. They have a history of anxiety disorder, which they believe may affect their blood pressure readings. No need for refills of other medications besides hydrocodone. LEATHA MCKEON, EWA [address] [place] [address], [phone], [facility] 02/02/2025 08:34:20 03/09/2025 text/html ROS as noted in the HPI Patient informed and consents to use of AI assisted recording to transcribe notes and improve documentation of visit. Patient presents for TCMS visit. Admitted to: [facility] Admission dates: 02/21/2025-02/23/2025 Reason for admission: Dyspnea, wheezing, SOB, bilateral leg pain, weakness, and Non-productive cough. Hospital course / testing: SOB when ambulating. Chest x-ray with, Retro-cardiac opacity possibly scarring versus atelectasis versus pneumonia. Flu/RSV/COVID-19 negative. UTI symptoms noted (1 week of urinary hesitancy, frequency and urinating low volumes). UA noted 42 WBCs, 3+ leukocytes and negative nitrates. Urine culture with mixed urogenital pérez. EKG normal. IV fluids. Summary also notes patient met criteria for moderate malnutrition. Discharge instructions / changes / follow up / testing: Patient has been started and d/c home on an albuterol inhaler, Breo Ellipta and cefpodoxime 200 mg every 12 hours x3 days. A referral to pulmonology and recommendation to obtain PFTs was made. Chief complaint: Shortness of breath and follow-up after recent hospitalization for post-viral bronchitis. History of present illness hpi: Anushka is presenting today with breathing difficulty and medication review following a recent hospital stay. Shortness of breath She continues to feel short of breath since discharge after treatment for post-viral bronchitis. - Cold symptoms began Saturday or Saturday before hospital admission on 02 21. - Hospitalized for dyspnea, wheeze, non-productive cough, bilateral leg pain and weakness; received IV antibiotics and nebulizer treatments. - Discharged on Breo Ellipta one puff daily and rescue albuterol inhaler; reports using albuterol approximately once daily. - Denies night-time coughing; able to sleep through the night. - Experiences shortness of breath with ambulation; walking tolerance limited. - No home nebulizer; open to pulmonology guidance. - Has pulmonology appointment at [address] [place] [address]; unsure if pulmonary function tests have been ordered. - Uses [id number] device at home as instructed in hospital. Anxiety She notes marked anxiety with clinic visits and driving. - Reports heart racing in office; attributes to anxiety disorder. - States driving causes additional stress due to other drivers behaviors. - Feels nervous during spirometry and hallway walk test performed today. Medication management and refills A comprehensive medication reconciliation was completed. - Current respiratory meds: Breo Ellipta (fluticasone-vilantero l) one puff daily; albuterol MDI as needed. - Other active prescriptions reviewed: amlodipine, alprazolam, celecoxib 200 mg, estradiol vaginal cream, lamotrigine, lurasidone 40 mg, mirtazapine, temazepam 15 mg, trazodone, trimethoprim prophylaxis, ondansetron, fish oil, B-complex, vitamin D. - Completed antibiotics: amoxicillin (dental infection, January), fosfomycin (UTI, December), cefpodoxime (hospital discharge). - Requests refill for celecoxib; prefers ninety-day supply via [facility]. - No current antibiotic therapy. - Vicodin (hydrocodone-acetamino phen) placed back on active list though not requested today. Loss of appetite and heat intolerance Reports poor appetite since hospitalization. - Consumes Ensure for calories and hydration; drinks cristóbal galo. - Eats frozen dinners at home; obtains dawson meals when visiting family. - Lives in a house in [place] without air conditioning; uses fans and cold showers to cool down. - Aware of local cooling centers if heat becomes excessive. LEATHA MCKEON NP [address] [place] [address], [place], [phone], [facility] 03/09/2025 13:06:05 OBGyn Episode No OBEpisode recorded.
== END 2025-04-08 10:06 | disposition home or self-care (01) ==
LOC: HO.HOP 10:05
PROVIDERS: PCP Family Medicine; Visit Provider Clinical Nurse Specialist Psychiatric/Mental Health
DX: F31.75 Bipolar disorder, in partial remission, most recent episode depressed (principal); F41.1 Generalized anxiety disorder; G47.00 Insomnia, unspecified
CPT/HCPCS: 99214

== ENCOUNTER 2025-05-31 11:52 | Outpatient (AMB) | payer MEDICARE, OTHER, SELFPAY ==
--- NOTE | 2025-05-31 11:29 | A.OFFPSYCH_ITS ---
Intake Intake Visit Reasons: depression Allergies No Known Allergies Allergy (Verified 11/12/23 15:33) HPI- Psychiatric Chief Complaint: depression HPI Narrative: Pt seen via telehealth for Bipolar Depression, PTSD, Anxiety with panic attacks and chronic insomnia. Pt reports much more anxious. reports recnt panic attack at Dentist and had to drive home feeling vey anxious. She didn't want to take the xanax because she was driving; she reports depression same level. She has low energy and low interest in activities. She is doing respiratory rehab 2 times a week; she is driving to library and to visit friend despite anxiety. she has resumed some activities; she is cleaning and gardening; she is doing some wood stacking; she is spending time with family and helping with her grandaughter. sleep is variable still; she denies SI or HI. Past Psychiatric History: patient has a long history of bipolar disorder; had an episode of significant depression and November of 2002 treated with ECT Subjective Subjective Subjective Medication Compliance: Yes Side effects from medications: No Review of Systems Medical Review of Systems: unchanged Mental Status Exam Mental Status Exam Patient Appearance: Appropriate Patient Orientation: Person, Place, Time and Situation Level of Consciousness: Awake and Appropriate Patient Behavior: Appropriate and Cooperative Mood Description: Depressed and Anxious Affect Description: Depressed and Flat Patient Cognition Impaired: No Ability to Follow Directions: Good Speech Pattern: Clear Memory Description: Intact Hallucinations: None Delusions: Not Present Thought Process: Intact and Goal Oriented Thought Content: positive for Intact and positive for Poverty of Content Judgement: Good Telehealth Telehealth Telehealth Platform: Other (please specify) (doxy.Capigami and phone as connection not good for video) Location of provider rendering services: practice address Location of patient: address on file Patient Identification confirmed using: Name, : Yes Telehealth method: video Patient verbally consented to treatment: Yes Patient verbally consented to billing insurance company: Yes Patient informed of any privacy concerns related to visit: Yes Minutes spent on Phone/Video with Pt.: 25 Assessment and Plan Assessment & Plan (1) Bipolar disorder, in partial remission, most recent episode depressed: Status: Acute Code(s): F31.75 - Bipolar disorder, in partial remission, most recent episode depressed (2) Anxiety, generalized: Status: Acute Code(s): F41.1 - Generalized anxiety disorder (3) Insomnia disorder with non-sleep disorder mental comorbidity: Status: Acute Code(s): G47.00 - Insomnia, unspecified Plan continue medications as per below decrease lamictal 100mg BID email [facility] for new PCP Leatha Molina NP fax # [phone] follow up in 4 weeks no refills needed at this time Counseling and coordination of Care Pt. Self Management counseling: Exercise, Maintenance-social rhythm, Med illness tx adherence, Nutrition education and improvement, Behavior activation and General coping skills Medication management counseling: Effectiveness, Side effects, Dosing range, Duration, Drug interaction and Adherence Diagnosis and Prognosis Counseling: Accuracy of diagnosis, Prognosis over time, Impact of diagnosis on life functions, Impact of family relationship, Problematic behaviors secondary to diagnosis and Adequacy of current interventions Details: I spent 35 minutes reviewing the record, seeing the patient and documenting in the medical record. Counseling provided to the patient/caregiver as outlined below. Addressed patient/caregiver concerns regarding current medication regime including effective adherence. Addressed patient/caregiver concerns regarding diagnosis and prognosis including accuracy of diagnosis, prognosis over time, impact of diagnosis. Addressed patient/caregiver concerns regarding impact of recent stressors. [facility] Medical History (Updated 03/11/25 @ 13:50 by Vira Ruiz APRN) Bipolar disorder with severe depression Bipolar disorder in partial remission Hypertension Social History: The patient lives alone; her daughter and grandchild live nearby in [place]. Patient is retired she used to work in [employer] patient's father committed suicide when the patient was age 1 patient. 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
== END 2025-05-31 11:55 | disposition home or self-care (01) ==
LOC: HO.HOP 11:52
PROVIDERS: PCP Family Medicine; Visit Provider Clinical Nurse Specialist Psychiatric/Mental Health
DX: F31.75 Bipolar disorder, in partial remission, most recent episode depressed (principal); F41.1 Generalized anxiety disorder; G47.00 Insomnia, unspecified
CPT/HCPCS: 99214

== ENCOUNTER 2025-07-01 13:42 | Outpatient (AMB) | payer MEDICARE, OTHER, SELFPAY ==
--- NOTE | 2025-07-01 10:08 | MHC.OFFVISPS ---
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: No Allergies No Known Allergies Allergy (Verified 11/12/23 15:33) Medication List - Last Reconciled 07/01/25 by Vira Ruiz APRN albuterol sulfate 90 mcg/actuation 2 puffs inhalation Q4-6H PRN alprazolam 0.5 - 1 mg (0.5 - 1 x 1 mg) PO BID PRN 3 months MDD 2mg amlodipine 10 mg PO DAILY celecoxib 200 mg PO DAILY estradiol 0.01%(0.1mg/gram) 0.5 grams vaginal 2XW famotidine 20 mg PO BEDTIME fluticasone furoate-vilanterol 100-25 mcg/dose (Breo Ellipta) 1 ea inhalation DAILY lamotrigine 100 mg orally take 1& 1/2 tabs in am and 1 tab at bedtime; lurasidone (Latuda) 40 mg PO DAILY mirtazapine 30 mg PO BEDTIME temazepam 30 mg (2 x 15 mg) PO BEDTIME PRN trazodone 100 - 150 mg (2 - 3 x 50 mg) PO BEDTIME PRN trimethoprim 100 mg PO BEDTIME HPI- Psychiatric Chief Complaint: depression HPI Narrative: Pt seen via telehealth for Bipolar Depression, PTSD, Anxiety with panic attacks and chronic insomnia. Pt reports she is struggling with her health' she had a tooth extracted on Saturday and is still recovering; she is fatigued. she is in pain. she is still anxious. she reports depression same level. She has low energy and low interest in activities. She is doing respiratory rehab 2 times a week; she is driving to library and to visit friend despite anxiety. she has resumed some activities; she is reading. last week she was cleaning and exercisinsg; she is spending less time with family and her grandaughter due to granddaughter's extracurricular activities. sleep is variable still; she denies SI or HI. Past Psychiatric History: patient has a long history of bipolar disorder; had an episode of significant depression and November of 2002 treated with ECT Subjective Subjective Subjective Medication Compliance: Yes Side effects from medications: No Review of Systems Medical Review of Systems: unchanged Mental Status Exam Mental Status Exam Patient Appearance: Appropriate Patient Orientation: Person, Place, Time and Situation Level of Consciousness: Awake and Appropriate Patient Behavior: Appropriate and Cooperative Mood Description: Depressed and Anxious Affect Description: Depressed and Flat Patient Cognition Impaired: No Ability to Follow Directions: Good Speech Pattern: Clear Memory Description: Intact Hallucinations: None Delusions: Not Present Thought Process: Intact and Goal Oriented Thought Content: positive for Intact and positive for Poverty of Content Judgement: Good Telehealth Telehealth Telehealth Platform: Kodable ([employer] and phone as connection not good for video) Location of provider rendering services: practice address Location of patient: address on file Patient Identification confirmed using: Name, : Yes Telehealth method: video Patient verbally consented to treatment: Yes Patient verbally consented to billing insurance company: Yes Patient informed of any privacy concerns related to visit: Yes Minutes spent on Phone/Video with Pt.: 29 Assessment and Plan Assessment & Plan (1) Bipolar disorder, in partial remission, most recent episode depressed: Status: Acute Code(s): F31.75 - Bipolar disorder, in partial remission, most recent episode depressed (2) Anxiety, generalized: Status: Acute Code(s): F41.1 - Generalized anxiety disorder (3) Insomnia disorder with non-sleep disorder mental comorbidity: Status: Acute Code(s): G47.00 - Insomnia, unspecified Plan continue medications as per below decrease lamictal 100mg in am and 50mg at bedtime email [facility] for new PCP Leatha Molina NP fax # [phone] follow up in 4 weeks Medications: Refilled temazepam 30 mg (2 x 15 mg) PO BEDTIME PRN 60 caps 2RF sleep lurasidone (Latuda) must administer with food (at least 350 calories) 40 mg PO DAILY 90 tabs 0RF Counseling and coordination of Care Pt. Self Management counseling: Exercise, Maintenance-social rhythm, Med illness tx adherence, Nutrition education and improvement, Behavior activation and General coping skills Medication management counseling: Effectiveness, Side effects, Dosing range, Duration, Drug interaction and Adherence Diagnosis and Prognosis Counseling: Accuracy of diagnosis, Prognosis over time, Impact of diagnosis on life functions, Impact of family relationship, Problematic behaviors secondary to diagnosis and Adequacy of current interventions Details: I spent 35 minutes reviewing the record, seeing the patient and documenting in the medical record. Counseling provided to the patient/caregiver as outlined below. Addressed patient/caregiver concerns regarding current medication regime including effective adherence. Addressed patient/caregiver concerns regarding diagnosis and prognosis including accuracy of diagnosis, prognosis over time, impact of diagnosis. Addressed patient/caregiver concerns regarding impact of recent stressors. [facility] Medical History (Updated 03/11/25 @ 13:50 by Vira Ruiz APRN) Bipolar disorder with severe depression Bipolar disorder in partial remission Hypertension Social History: The patient lives alone; her daughter and grandchild live nearby in [place]. Patient is retired she used to work in [employer] patient's father committed suicide when the patient was age 1 patient. 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
== END 2025-07-01 13:43 | disposition home or self-care (01) ==
LOC: HO.HOP 13:42
PROVIDERS: PCP Family Medicine; Visit Provider Clinical Nurse Specialist Psychiatric/Mental Health
DX: F31.75 Bipolar disorder, in partial remission, most recent episode depressed (principal); F41.1 Generalized anxiety disorder; G47.00 Insomnia, unspecified
CPT/HCPCS: 99214

== ENCOUNTER → 2025-07-01 13:42 | Outpatient (BNVA) | payer MEDICARE, OTHER, SELFPAY | PROVIDERS: PCP Family Medicine; Visit Provider Clinical Nurse Specialist Psychiatric/Mental Health | DX: F31.75 Bipolar disorder, in partial remission, most recent episode depressed (principal); F41.1 Generalized anxiety disorder; G47.00 Insomnia, unspecified; Z79.899 Other long term (current) drug therapy | CPT/HCPCS: 99212 ==

== ENCOUNTER 2025-07-29 10:08 | Outpatient (AMB) | payer MEDICARE, OTHER, SELFPAY ==
--- NOTE | 2025-07-29 09:47 | A.OFFPSYCH_ITS ---
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 Required: No Allergies No Known Allergies Allergy (Verified 11/12/23 15:33) Medication List - Last Reconciled 07/29/25 by Vira Ruiz APRN albuterol sulfate 90 mcg/actuation 2 puffs inhalation Q4-6H PRN alprazolam 0.5 - 1 mg (0.5 - 1 x 1 mg) PO BID PRN 3 months MDD 2mg amlodipine 10 mg PO DAILY celecoxib 200 mg PO DAILY estradiol 0.01%(0.1mg/gram) 0.5 grams vaginal 2XW famotidine 20 mg PO BEDTIME fluticasone furoate-vilanterol 100-25 mcg/dose (Breo Ellipta) 1 ea inhalation DAILY lamotrigine 100 mg orally take 1& 1/2 tabs in am and 1 tab at bedtime; lurasidone (Latuda) 40 mg PO DAILY mirtazapine 30 mg PO BEDTIME temazepam 30 mg (2 x 15 mg) PO BEDTIME PRN trazodone 100 - 150 mg (2 - 3 x 50 mg) PO BEDTIME PRN trimethoprim 100 mg PO BEDTIME HPI- Psychiatric Chief Complaint: depression HPI Narrative: Pt seen via telehealth for Bipolar Depression, PTSD, Anxiety with panic attacks and chronic insomnia. Pt reports no change in depression; she is struggling with low energy and anxiety. Her friend Calin feel and broke pelvis- and is in rehab. pt is active, she is driving to [place]. she has resumed some activities; she is reading. last week she was cleaning and exercising; she is spending time with family and her granddaughter. sleep is variable still; she denies SI or HI. Past Psychiatric History: patient has a long history of bipolar disorder; had an episode of significant depression and November of 2002 treated with ECT Subjective Subjective Medication Compliance: Yes Side effects from medications: No Review of Systems Medical Review of Systems: unchanged Mental Status Exam Mental Status Exam Patient Appearance: Appropriate Patient Orientation: Person, Place, Time and Situation Level of Consciousness: Awake and Appropriate Patient Behavior: Appropriate and Cooperative Mood Description: Depressed and Anxious Affect Description: Depressed and Flat Patient Cognition Impaired: No Ability to Follow Directions: Good Speech Pattern: Clear Memory Description: Intact Hallucinations: None Delusions: Not Present Thought Process: Intact and Goal Oriented Thought Content: positive for Intact and positive for Poverty of Content Judgement: Good Telehealth Telehealth Telehealth Platform: [employer] ([email or web address] and phone as connection not good for video) Location of provider rendering services: practice address Location of patient: address on file Patient Identification confirmed using: Name, : Yes Telehealth method: video Patient verbally consented to treatment: Yes Patient verbally consented to billing insurance company: Yes Patient informed of any privacy concerns related to visit: Yes Minutes spent on Phone/Video with Pt.: 22 Assessment and Plan Assessment & Plan (1) Bipolar disorder, in partial remission, most recent episode depressed: Status: Acute Code(s): F31.75 - Bipolar disorder, in partial remission, most recent episode depressed (2) Anxiety, generalized: Status: Acute Code(s): F41.1 - Generalized anxiety disorder (3) Insomnia disorder with non-sleep disorder mental comorbidity: Status: Acute Code(s): G47.00 - Insomnia, unspecified Plan decrease lamictal 100mg in am only and stop 50mg at bedtime reduce latuda to 20mg daily follow up in 4 weeks Counseling and coordination of Care Pt. Self Management counseling: Exercise, Maintenance-social rhythm, Med illness tx adherence, Nutrition education and improvement, Behavior activation and General coping skills Medication management counseling: Effectiveness, Side effects, Dosing range, Duration, Drug interaction and Adherence Diagnosis and Prognosis Counseling: Accuracy of diagnosis, Prognosis over time, Impact of diagnosis on life functions, Impact of family relationship, Problematic behaviors secondary to diagnosis and Adequacy of current interventions Details: I spent 25 minutes reviewing the record, seeing the patient and documenting in the medical record. Counseling provided to the patient/caregiver as outlined below. Addressed patient/caregiver concerns regarding current medication regime including effective adherence. Addressed patient/caregiver concerns regarding diagnosis and prognosis including accuracy of diagnosis, prognosis over time, impact of diagnosis. Addressed patient/caregiver concerns regarding impact of recent stressors. [facility] Medical History (Updated 03/11/25 @ 13:50 by Vira Ruiz APRN) Bipolar disorder with severe depression Bipolar disorder in partial remission Hypertension Social History: The patient lives alone; her daughter and grandchild live nearby in [place]. Patient is retired she used to work in [employer] patient's father committed suicide when the patient was age 1 patient. 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
== END 2025-07-29 10:09 | disposition home or self-care (01) ==
LOC: HO.HOP 10:08
PROVIDERS: PCP Family Medicine; Visit Provider Clinical Nurse Specialist Psychiatric/Mental Health
DX: F31.75 Bipolar disorder, in partial remission, most recent episode depressed (principal); F41.1 Generalized anxiety disorder; G47.00 Insomnia, unspecified
CPT/HCPCS: 99213

== ENCOUNTER 2025-08-26 10:09 | Outpatient (AMB) | payer MEDICARE, OTHER, SELFPAY ==
--- NOTE | 2025-08-26 09:37 | MHC.OFFVISPS ---
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 Required: No Allergies No Known Allergies Allergy (Verified 11/12/23 15:33) Medication List - Last Reconciled 08/26/25 by Vira Ruiz APRN albuterol sulfate 90 mcg/actuation 2 puffs inhalation Q4-6H PRN alprazolam 0.5 - 1 mg (0.5 - 1 x 1 mg) PO BID PRN 3 months MDD 2mg amlodipine 10 mg PO DAILY celecoxib 200 mg PO DAILY estradiol 0.01%(0.1mg/gram) 0.5 grams vaginal 2XW famotidine 20 mg PO BEDTIME fluticasone furoate-vilanterol 100-25 mcg/dose (Breo Ellipta) 1 ea inhalation DAILY lamotrigine 100 mg orally take 1& 1/2 tabs in am and 1 tab at bedtime; lurasidone (Latuda) 40 mg PO DAILY mirtazapine 30 mg PO BEDTIME temazepam 30 mg (2 x 15 mg) PO BEDTIME PRN trazodone 100 - 150 mg (2 - 3 x 50 mg) PO BEDTIME PRN trimethoprim 100 mg PO BEDTIME HPI- Psychiatric Chief Complaint: depression HPI Narrative: Pt seen via telehealth for Bipolar Depression, PTSD, Anxiety with panic attacks and chronic insomnia. Pt reports no change in depression; she is struggling with low energy and anxiety. Her friend Calin feel and broke pelvis- he is in rehab. [place]. she has resumed some activities; she is reading. last week she was cleaning and exercising; she is spending time with family and her granddaughter. sleep is variable still; she denies SI or HI. Past Psychiatric History: patient has a long history of bipolar disorder; had an episode of significant depression and November of 2002 treated with ECT Subjective Subjective Medication Compliance: Yes Side effects from medications: No Review of Systems Medical Review of Systems: unchanged Mental Status Exam Mental Status Exam Patient Appearance: Appropriate Patient Orientation: Person, Place, Time and Situation Level of Consciousness: Awake and Appropriate Patient Behavior: Appropriate and Cooperative Mood Description: Depressed and Anxious Affect Description: Depressed and Flat Patient Cognition Impaired: No Ability to Follow Directions: Good Speech Pattern: Clear Memory Description: Intact Hallucinations: None Delusions: Not Present Thought Process: Intact and Goal Oriented Thought Content: positive for Intact and positive for Poverty of Content Judgement: Good Telehealth Telehealth Telehealth Platform: [employer] ([employer] and phone as connection not good for video) Location of provider rendering services: practice address Location of patient: address on file Patient Identification confirmed using: Name, : Yes Telehealth method: video Patient verbally consented to treatment: Yes Patient verbally consented to billing insurance company: Yes Patient informed of any privacy concerns related to visit: Yes Minutes spent on Phone/Video with Pt.: 22 Assessment and Plan Assessment & Plan (1) Bipolar disorder, in partial remission, most recent episode depressed: Status: Acute Code(s): F31.75 - Bipolar disorder, in partial remission, most recent episode depressed (2) Anxiety, generalized: Status: Acute Code(s): F41.1 - Generalized anxiety disorder (3) Insomnia disorder with non-sleep disorder mental comorbidity: Status: Acute Code(s): G47.00 - Insomnia, unspecified Plan decrease lamictal 50mg in am only and stop 50mg at bedtime reduce latuda to 20mg daily follow up in 4 weeks Counseling and coordination of Care Pt. Self Management counseling: Exercise, Maintenance-social rhythm, Med illness tx adherence, Nutrition education and improvement, Behavior activation and General coping skills Medication management counseling: Effectiveness, Side effects, Dosing range, Duration, Drug interaction and Adherence Diagnosis and Prognosis Counseling: Accuracy of diagnosis, Prognosis over time, Impact of diagnosis on life functions, Impact of family relationship, Problematic behaviors secondary to diagnosis and Adequacy of current interventions Details: I spent 24 minutes reviewing the record, seeing the patient and documenting in the medical record. Counseling provided to the patient/caregiver as outlined below. Addressed patient/caregiver concerns regarding current medication regime including effective adherence. Addressed patient/caregiver concerns regarding diagnosis and prognosis including accuracy of diagnosis, prognosis over time, impact of diagnosis. Addressed patient/caregiver concerns regarding impact of recent stressors. [facility] Medical History (Updated 03/11/25 @ 13:50 by Vira Ruiz APRN) Bipolar disorder with severe depression Bipolar disorder in partial remission Hypertension Social History: The patient lives alone; her daughter and grandchild live nearby in [place]. Patient is retired she used to work in [employer] patient's father committed suicide when the patient was age 1 patient. 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
== END 2025-08-26 10:10 | disposition home or self-care (01) ==
LOC: HO.HOP 10:09
PROVIDERS: PCP Family Medicine; Visit Provider Clinical Nurse Specialist Psychiatric/Mental Health
DX: F31.75 Bipolar disorder, in partial remission, most recent episode depressed (principal); F41.1 Generalized anxiety disorder; G47.00 Insomnia, unspecified
CPT/HCPCS: 99213